=== PATIENT | male | born 1940 | race Caucasian/White ===

== ENCOUNTER 2020-01-12 14:35 | Outpatient (REF) | payer MEDICARE, SELFPAY ==
[2020-01-12 15:34] LABS: INTERNATIONAL NORM RATIO 1.4 (0.9-1.1); Prothrombin Time 16.3 SEC (10.8-13.0)
[2020-01-12 15:56] LABS: Anion Gap 13 (12-20); Blood Urea Nitrogen 17 mg/dL (9-16); Calcium 8.9 mg/dL (8.4-10.2); Carbon Dioxide 26 mmol/L (22-29); Chloride 104 mmol/L (96-108); Estimated Glomerular Filt Rate > 60; Glucose Random 134 mg/dL (60-115); Potassium 3.7 mmol/l (3.3-5.1); Sodium 139 mmol/L (135-145)
== END 2020-01-12 14:36 | disposition home or self-care (01) ==
LOC: HO.LAB 14:35
PROVIDERS: PCP Internal Medicine; Visit Provider Internal Medicine
DX: I25.10 Atherosclerotic heart disease of native coronary artery without angina pectoris (principal)
CPT/HCPCS: 36415; 80048; 85025; 85610

== ENCOUNTER → 2020-01-26 09:26 | Outpatient (BNVA) | payer MEDICARE, SELFPAY | PROVIDERS: PCP Internal Medicine; Visit Provider Psychiatry & Neurology Neurology | DX: Z76.89 Persons encountering health services in other specified circumstances (principal) ==

== ENCOUNTER → 2020-02-02 08:00 | Outpatient (BNVA) | payer MEDICARE, SELFPAY | PROVIDERS: PCP Internal Medicine; Visit Provider Psychiatry & Neurology Neurology | DX: G47.33 Obstructive sleep apnea (adult) (pediatric) (principal) | CPT/HCPCS: 99214 ==

== ENCOUNTER → 2020-02-04 10:53 | Outpatient (BNVA) | payer MEDICARE, SELFPAY | PROVIDERS: PCP Internal Medicine; Referring Provider Internal Medicine; Visit Provider Internal Medicine | DX: I25.10 Atherosclerotic heart disease of native coronary artery without angina pectoris (principal); I48.0 Paroxysmal atrial fibrillation; I10 Essential (primary) hypertension; R60.0 Localized edema; M06.9 Rheumatoid arthritis, unspecified; G47.33 Obstructive sleep apnea (adult) (pediatric); Z86.73 Personal history of transient ischemic attack (TIA), and cerebral infarction without residual deficits; Z79.01 Long term (current) use of anticoagulants; Z79.899 Other long term (current) drug therapy; Z99.89 Dependence on other enabling machines and devices; Z95.5 Presence of coronary angioplasty implant and graft | CPT/HCPCS: 99212 ==

== ENCOUNTER 2020-03-21 10:25 | Outpatient (REF) | payer MEDICARE, SELFPAY ==
[2020-03-21 11:12] LABS: MANUAL DIFF FLAG NO
[2020-03-21 11:28] LABS: Basophils Absolute Auto 0.1 X10*3/uL (0.0-0.2); Basophils Percent Auto 0.8 % (0-2); Eosinophils Absolute Auto 0.1 X10*3/uL (0.0-0.4); Eosinophils Percent Auto 1.5 % (0-4); Hematocrit 36.9 % (42-52); Hemoglobin 11.9 g/dl (14.0-18.0); Imm Gran Abs Auto 0.01 X10*3/uL (0.00-0.03); Imm Gran Pct Auto 0.2 % (0.0-0.4); Lymphocytes Absolute Auto 0.9 X10*3/uL (1.2-4.9); Lymphocytes Percent Auto 14.2 % (20-40); Mean Corpuscular HGB Conc 32.2 g/dl (31.0-36.0); Mean Corpuscular Hemoglobin 31.8 pg (27.0-33.0); Mean Corpuscular Volume 98.7 fL (80-98); Monocytes Absolute Auto 0.5 X10*3/uL (0.1-1.2); Monocytes Percent Auto 8.7 % (2-11); Neutrophils Absolute Auto 4.6 X10*3/uL (2.0-8.3); Neutrophils Percent Auto 74.6 % (45-73); Platelet Count 243 X10*3/uL (160-400); Red Blood Count 3.74 X10*6/uL (4.60-5.80); Red Cell Distribution Width 13.3 % (11.0-16.0); White Blood Count 6.2 X10*3/uL (4.8-10.8)
[2020-03-21 11:58] LABS: Alanine Aminotransferase 15 U/L (0-40); Albumin Level 4.2 g/dL (3.5-5.0); Alkaline Phosphatase 99 U/L (39-117); Anion Gap 14 (12-20); Aspartate Amino Transferase 22 U/L (5-37); Bilirubin Total 0.5 mg/dL (0.0-1.0); Blood Urea Nitrogen 15 mg/dL (9-16); C Reactive Protein 0.22 mg/dL (< or = 0.50); Calcium 8.6 mg/dL (8.4-10.2); Carbon Dioxide 27 mmol/L (22-29); Chloride 106 mmol/L (96-108); Estimated Glomerular Filt Rate > 60; Glucose Random 78 mg/dL (60-115); Potassium 4.5 mmol/l (3.3-5.1); Sodium 142 mmol/L (135-145); Total Protein 6.7 g/dL (6.5-8.0); Uric Acid 4.8 mg/dL (3.4-7.0)
[2020-03-21 12:40] LABS: Erythrocyte Sedimentation Rate 43 MM/HR (0-15)
== END 2020-03-21 10:26 | disposition home or self-care (01) ==
LOC: HO.LAB 10:25
PROVIDERS: PCP Internal Medicine; Visit Provider Student in an Organized Health Care Education/Training Program
DX: L40.50 Arthropathic psoriasis, unspecified (principal); M1A.9XX0 Chronic gout, unspecified, without tophus (tophi); M15.4 Erosive (osteo)arthritis
CPT/HCPCS: 36415; 80053; 84550; 85025; 85652; 86140

== ENCOUNTER → 2020-03-23 10:13 | Outpatient (BNVA) | payer MEDICARE, SELFPAY | PROVIDERS: PCP Internal Medicine; Visit Provider Student in an Organized Health Care Education/Training Program | DX: M15.4 Erosive (osteo)arthritis (principal); L40.50 Arthropathic psoriasis, unspecified; M1A.00X0 Idiopathic chronic gout, unspecified site, without tophus (tophi) | CPT/HCPCS: 99212 ==

== ENCOUNTER 2020-03-30 10:08 | Outpatient (REF) | payer MEDICARE, SELFPAY ==
[2020-03-30 11:34] LABS: Prostate Specific Antigen < 0.05 ng/mL (<0.05-4.0)
== END 2020-03-30 10:09 | disposition home or self-care (01) ==
LOC: HO.LAB 10:08
PROVIDERS: PCP Internal Medicine; Visit Provider Urology
DX: Z12.5 Encounter for screening for malignant neoplasm of prostate (principal)
CPT/HCPCS: 84153

== ENCOUNTER → 2020-04-04 11:02 | Outpatient (BNVA) | payer MEDICARE, SELFPAY | PROVIDERS: PCP Internal Medicine; Visit Provider Urology | DX: Z13.89 Encounter for screening for other disorder (principal) | CPT/HCPCS: Q3014 ==

== ENCOUNTER → 2020-06-13 10:45 | Outpatient (BNVA) | payer MEDICARE, SELFPAY | PROVIDERS: Visit Provider Internal Medicine | DX: I25.10 Atherosclerotic heart disease of native coronary artery without angina pectoris (principal); I48.0 Paroxysmal atrial fibrillation; I63.40 Cerebral infarction due to embolism of unspecified cerebral artery; I10 Essential (primary) hypertension; R60.0 Localized edema; M06.9 Rheumatoid arthritis, unspecified; G47.33 Obstructive sleep apnea (adult) (pediatric); Z99.89 Dependence on other enabling machines and devices; Z95.5 Presence of coronary angioplasty implant and graft | CPT/HCPCS: 99212 ==

== ENCOUNTER 2020-06-17 09:36 | Outpatient (REF) | payer MEDICARE, SELFPAY ==
[2020-06-17 10:52] LABS: MANUAL DIFF FLAG NO
[2020-06-17 10:59] LABS: Basophils Absolute Auto 0.1 X10*3/uL (0.0-0.2); Eosinophils Absolute Auto 0.1 X10*3/uL (0.0-0.4); Hematocrit 36.8 % (42-52); Hemoglobin 12.3 g/dl (14.0-18.0); Imm Gran Abs Auto 0.03 X10*3/uL (0.00-0.03); Imm Gran Pct Auto 0.4 % (0.0-0.4); Lymphocytes Absolute Auto 1.1 X10*3/uL (1.2-4.9); Lymphocytes Percent Auto 14.9 % (20-40); Mean Corpuscular HGB Conc 33.4 g/dl (31.0-36.0); Mean Corpuscular Hemoglobin 32.4 pg (27.0-33.0); Mean Corpuscular Volume 96.8 fL (80-98); Mean Platelet Volume 10.9 fL (9.4-12.4); Monocytes Absolute Auto 0.4 X10*3/uL (0.1-1.2); Monocytes Percent Auto 5.9 % (2-11); Neutrophils Absolute Auto 5.4 X10*3/uL (2.0-8.3); Neutrophils Percent Auto 76.8 % (45-73); Platelet Count 244 X10*3/uL (160-400); Red Cell Distribution Width 15.3 % (11.0-16.0); White Blood Count 7.1 X10*3/uL (4.8-10.8)
[2020-06-17 11:19] LABS: Alanine Aminotransferase 18 U/L (0-40); Albumin Level 4.3 g/dL (3.5-5.0); Alkaline Phosphatase 91 U/L (39-117); Anion Gap 13 (12-20); Aspartate Amino Transferase 19 U/L (5-37); Bilirubin Total 0.7 mg/dL (0.0-1.0); Blood Urea Nitrogen 23 mg/dL (9-16); C Reactive Protein 0.05 mg/dL (< or = 0.50); Calcium 9.2 mg/dL (8.4-10.2); Carbon Dioxide 27 mmol/L (22-29); Chloride 105 mmol/L (96-108); Estimated Glomerular Filt Rate > 60; Glucose Random 83 mg/dL (60-115); Potassium 4.2 mmol/L (3.3-5.1); Sodium 141 mmol/L (135-145); Total Protein 6.8 g/dL (6.5-8.0)
[2020-06-17 11:42] LABS: Prostate Specific Antigen 0.05 ng/mL (<0.05-4.0)
[2020-06-17 12:04] LABS: Erythrocyte Sedimentation Rate 14 MM/HR (0-15)
== END 2020-06-17 09:37 | disposition home or self-care (01) ==
LOC: HO.LAB 09:36
PROVIDERS: Absent Provider Urology; PCP Internal Medicine; Visit Provider Student in an Organized Health Care Education/Training Program
DX: L40.50 Arthropathic psoriasis, unspecified (principal); C61 Malignant neoplasm of prostate; M1A.9XX0 Chronic gout, unspecified, without tophus (tophi); M15.4 Erosive (osteo)arthritis
CPT/HCPCS: 36415; 80053; 84153; 85025; 85652; 86140

== ENCOUNTER → 2020-06-21 09:59 | Outpatient (BNVA) | payer MEDICARE, SELFPAY | PROVIDERS: Visit Provider Student in an Organized Health Care Education/Training Program | DX: L40.50 Arthropathic psoriasis, unspecified (principal); M1A.00X0 Idiopathic chronic gout, unspecified site, without tophus (tophi); M15.4 Erosive (osteo)arthritis; Z79.899 Other long term (current) drug therapy | CPT/HCPCS: 99212 ==

== ENCOUNTER → 2020-06-23 09:42 | Outpatient (BNVA) | payer MEDICARE, SELFPAY | PROVIDERS: PCP Internal Medicine; Visit Provider Urology | DX: Z13.89 Encounter for screening for other disorder (principal) | CPT/HCPCS: 99212 ==

== ENCOUNTER → 2020-06-28 09:50 | Outpatient (BNVA) | payer MEDICARE, SELFPAY | PROVIDERS: PCP Internal Medicine; Visit Provider Psychiatry & Neurology Neurology | DX: Z13.89 Encounter for screening for other disorder (principal) | CPT/HCPCS: Q3014 ==

== ENCOUNTER 2020-08-11 08:00 | Outpatient (RCR) | payer MEDICARE, SELFPAY ==
[2020-07-06 08:13] VITALS: BP 143/65; PULSE 63
--- NOTE | 2020-07-06 15:22 | MHC.PT.EP ---
[facility] [place] Office [place] Office [place] Office [address] Cerna [address] [phone] F: [phone] F: [phone] F: [phone] F: [phone] Physical Therapy Plan of Care Date of Evaluation: 07/06/20 Date of Surgery: N/A Diagnosis: SONY KNEE PAIN Assessment: Pt is a pleasant 80 yo male with increasing bilateral knee pain. Impairments include decreased knee ROM bilaterally without the ability to fully extend either knee, decreased strength, altered gait pattern, decreased balance and increased pain. Functional limitations include decreased ability to perform transfers and gait, decreased ability to perform homemaking and self care tasks, decreased participation in community activity and mobility and disrupted sleep. Frequency and Duration: The patient will be seen 2 x week for 6 weeks Short Term Goals: initiate HEP and educ in self management of symptoms [facility] Goals: IN 6 WEEKS: TO DEMONSTRATE FULL KNEE ROM, EQUAL SONY TO DEMONSTRATE FULL LE STRENGTH, EQUAL SONY TO ASCEND AND DESCEND STAIRS WITHOUT PAIN GREATER THAN 2/10 TO AMBULATE AD SAYRA ON LEVEL AND UNEVEN SURFACES FOR FITNESS WITHOUT PAIN GREATER THAN 2/10 WITH STANDARD CANE Treatment Plan: Modalities to reduce pain, spasms and effusion. Manual therapy to restore motion and function. Therapeutic exercise to improve strength and flexibility. Neuromuscular re-education for posture and balance. Therapeutic activities to return to functional activities of daily living. Electronically signed by: TRENT SANCHEZ PT, DPT Please sign and return to therapist. Thank you for your referral.
--- NOTE | 2020-09-08 15:46 | MHC.PT.DC ---
[facility] [place] Office [place] Office [place] Office [address] Kathy Cerna [address] [phone] F: [phone] F: [phone] F: [phone] F: [phone] Physical Therapy Discharge Report Diagnosis: SONY KNEE PAIN Date of Surgery: N/A Date of Evaluation: 07/06/20 Date of Discharge: 08/12/20 Treatments to Date: 8 Cancellations to Date: 0 No Shows to Date: 0 Discharge Status: Improved Function Independent with HEP Discharge Summary: Derrick demonstrated improvement in knee pain with physical therapy but due to on going issues with his low back he was limited in progressing. He is currently independent with a modified home program to self manage his knee symptoms and promote strengthening. He did speak to us about possibly pursuing pain management or accupuncture for his back symptoms. He is discharged from our services at this time. Electronically signed by: Farrah Jonas PT, DPT Please sign and return to therapist. Thank you for your referral.
== END 2020-09-08 15:48 | disposition other institution (70) ==
LOC: HO.PT 08:00
PROVIDERS: PCP Internal Medicine; Visit Provider Student in an Organized Health Care Education/Training Program
DX: M17.0 Bilateral primary osteoarthritis of knee (principal)
CPT/HCPCS: 97110; 97162

== ENCOUNTER → 2020-09-06 09:34 | Outpatient (BNVA) | payer MEDICARE, SELFPAY | PROVIDERS: PCP Internal Medicine; Visit Provider Psychiatry & Neurology Neurology | CPT/HCPCS: Q3014 ==

== ENCOUNTER 2020-09-16 10:33 | Outpatient (REF) | payer MEDICARE, SELFPAY ==
[2020-09-16 12:31] LABS: Prostate Specific Antigen < 0.05 ng/mL (<0.05-4.0)
[2020-09-20 10:26] LABS: Testosterone, Total 11 ng/dL (250-1100)
== END 2020-09-16 10:34 | disposition home or self-care (01) ==
LOC: HO.LAB 10:33
PROVIDERS: Absent Provider Urology; PCP Internal Medicine; Visit Provider Student in an Organized Health Care Education/Training Program
DX: Z12.5 Encounter for screening for malignant neoplasm of prostate (principal); N13.8 Other obstructive and reflux uropathy; N40.1 Benign prostatic hyperplasia with lower urinary tract symptoms
CPT/HCPCS: 36415; 84153; 84403

== ENCOUNTER 2020-09-21 09:35 | Outpatient (REF) | payer MEDICARE, SELFPAY ==
[2020-09-21 12:50] LABS: MANUAL DIFF FLAG NO
[2020-09-21 12:58] LABS: Basophils Percent Auto 0.6 % (0-2); Eosinophils Absolute Auto 0.1 X10*3/uL (0.0-0.4); Eosinophils Percent Auto 1.4 % (0-4); Hematocrit 36.5 % (42-52); Hemoglobin 12.2 g/dl (14.0-18.0); Imm Gran Abs Auto 0.01 X10*3/uL (0.00-0.03); Imm Gran Pct Auto 0.2 % (0.0-0.4); Lymphocytes Absolute Auto 0.8 X10*3/uL (1.2-4.9); Lymphocytes Percent Auto 14.9 % (20-40); Mean Corpuscular HGB Conc 33.4 g/dl (31.0-36.0); Mean Corpuscular Hemoglobin 32.7 pg (27.0-33.0); Mean Corpuscular Volume 97.9 fL (80-98); Mean Platelet Volume 10.3 fL (9.4-12.4); Monocytes Absolute Auto 0.4 X10*3/uL (0.1-1.2); Monocytes Percent Auto 7.5 % (2-11); Neutrophils Absolute Auto 3.8 X10*3/uL (2.0-8.3); Neutrophils Percent Auto 75.4 % (45-73); Platelet Count 220 X10*3/uL (160-400); Red Blood Count 3.73 X10*6/uL (4.60-5.80); Red Cell Distribution Width 13.2 % (11.0-16.0); White Blood Count 5.1 X10*3/uL (4.8-10.8)
[2020-09-21 13:20] LABS: Alanine Aminotransferase 16 U/L (0-40); Albumin Level 3.8 g/dL (3.5-5.0); Alkaline Phosphatase 84 U/L (39-117); Anion Gap 12 (12-20); Aspartate Amino Transferase 20 U/L (5-37); Bilirubin Total 0.9 mg/dL (0.0-1.0); Blood Urea Nitrogen 18 mg/dL (9-16); Calcium 8.6 mg/dL (8.4-10.2); Carbon Dioxide 24 mmol/L (22-29); Chloride 107 mmol/L (96-108); Estimated Glomerular Filt Rate > 60; Glucose Random 88 mg/dL (60-115); Sodium 139 mmol/L (135-145); Total Protein 5.9 g/dL (6.5-8.0)
[2020-09-21 13:41] LABS: Erythrocyte Sedimentation Rate 20 MM/HR (0-15)
== END 2020-09-21 09:36 | disposition home or self-care (01) ==
LOC: HO.LAB 09:35
PROVIDERS: PCP Internal Medicine; Visit Provider Student in an Organized Health Care Education/Training Program
DX: L40.50 Arthropathic psoriasis, unspecified (principal); M15.4 Erosive (osteo)arthritis; M17.0 Bilateral primary osteoarthritis of knee; M1A.00X0 Idiopathic chronic gout, unspecified site, without tophus (tophi); Z79.899 Other long term (current) drug therapy
CPT/HCPCS: 36415; 80053; 85025; 85652; 86140; 99212

== ENCOUNTER 2020-09-21 10:45 | Emergency (ER) | payer MEDICARE, SELFPAY ==
--- NOTE | ~2020-09-21 | CT_ITS ---
EXAMINATION: CT BRAIN AND CT CERVICAL SPINE WITHOUT CONTRAST. CLINICAL INFORMATION: Fall. COMPARISON: None TECHNIQUE: 5 mm thin axial and reformatted 2 mm thin sagittal and coronal images of brain were obtained. Subsequently axial 3 mm thin and reformatted 2 mm thin sagittal and coronal images of cervical spine were obtained. DLP [id number] FINDINGS: BRAIN: There is no acute intra-axial, extra-axial bleed, masses or midline shift. There is no acute infarction in evolution. The caruso to white matter differentiation is maintained normal. The lateral ventricles are symmetrical in size but moderately enlarged. There is mild prominence of cortical sulci. There is mild periventricular hypodensity in both cerebral hemispheres without mass effect. There is no cerebral edema. Bone windows reveal no calvarial abnormality. Bilateral paranasal sinuses and mastoid air cells are well-aerated. There is no scalp soft tissue abnormality seen. CERVICAL SPINE: There is mild straightening of cervical lordosis. The vertebral heights and alignment is normal. There is loss of C4-C6 and C6-C7 disc heights with moderate ventral and posterior spondylosis. The craniovertebral junction and the C1-C2 alignment is normal. No visible acute fracture or dislocation. There is mild rotatory subluxation C1-C2 alignment. There is moderate left C2-C3, C3-C4 and mild bilateral C4-C5 facet joint arthropathy. No lytic or sclerotic process seen. The prevertebral and paravertebral soft tissues are normal. The thyroid lobes are symmetric and normal. Visualized bilateral submandibular and parotid glands are symmetrical and normal. The airway is widely patent. CT/CT cervical spine wo con IMPRESSION: No acute intracranial process seen. Age-related cerebral volume loss. Mild straightening of cervical lordosis without acute fracture or dislocation. There is a rotatory subluxation at C1-C2 disc level likely secondary to spasm There are degenerative disc changes with spondylosis at C5-C6 and C6-C7 disc levels.
--- NOTE | ~2020-09-21 | XR_ITS ---
EXAMINATION: XR KNEE, RIGHT CLINICAL INFORMATION: Fall. COMPARISON: None TECHNIQUE: Four views of the right knee. FINDINGS: There is mild reduction in the medial and patellofemoral compartment joint space with periarticular spurring. No visible acute fracture, dislocation or subluxation. There is no suprapatellar joint effusion seen. XR/XR knee RT 4V IMPRESSION: Degenerative arthritic changes medial and patellar femoral compartment with periarticular spurring. No visible acute fracture, dislocation or subluxation seen
[2020-09-21 10:48] VITALS: BP 135/73; PULSE 67; RESP 18; TEMP 36.6; O2SAT 98; BMI 36.6
--- NOTE | 2020-09-21 11:00 | ECG_ITS ---
Test Reason : FALL Blood Pressure : / mmHG Vent. Rate : 061 BPM Atrial Rate : 061 BPM P-R Int : 178 ms QRS Dur : 096 ms QT Int : 416 ms P-R-T Axes : 049 000 047 degrees QTc Int : 418 ms Sinus rhythm with occasional Premature ventricular complexes Increased R/S ratio in V1, consider early transition or posterior infarct Abnormal ECG When compared with ECG of 15-APR-2019 14:08, Premature ventricular complexes are now Present Referred By: Mlaka Marion Electronically Signed By:DONN ARDON
--- NOTE | 2020-09-21 11:01 | ED_ITS ---
HPI - Fall General Chief Complaint: Fall Stated Complaint: fall Time Seen by Provider: 09/21/20 10:59 Source: patient Mode of arrival: ambulatory (from our lab department) Limitations: no limitations History of Present Illness MD complaint: fall Onset (ago): minute(s) Fall from: standing Fall witnessed: no Place fall occurred: other (lab registration) Loss of consciousness: none Prolonged down time: no Symptoms prior to fall: other (had just stood up and felt off) Location of injury: head Location of injury - extremities: right: elbow Severity: mild Quality: dull Associated symptoms (after fall): other (skin tear) Related Data Home Medications Medication Instructions Recorded Confirmed folic acid 1 mg tablet 1 mg PO DAILY 02/04/20 06/28/20 furosemide 40 mg tablet 40 mg PO DAILY tab 02/04/20 06/28/20 metoprolol tartrate 50 mg tablet 25 mg PO BID tab 02/04/20 06/28/20 omeprazole 20 mg capsule,delayed 20 mg PO DAILY 02/04/20 06/28/20 release oxycodone-acetaminophen 10 mg-325 1 tab PO . BID PRN tab 02/04/20 06/28/20 mg tablet Previous Rx's Medication Instructions Recorded atorvastatin 40 mg tablet 40 mg PO DAILY #90 tab 02/29/20 bicalutamide 50 mg tablet 50 mg PO DAILY #90 tab 04/13/20 acetaminophen 650 mg 650 mg PO Q12H PRN #60 tab 05/10/20 tablet,extended release allopurinol 100 mg tablet 100 mg PO DAILY #90 tab 06/02/20 potassium chloride 20 mEq 40 meq PO BID #180 tab 07/01/20 tablet,extended release apixaban 5 mg tablet 5 mg PO BID 90 Days #180 tab 07/21/20 amlodipine 5 mg tablet 5 mg PO DAILY #90 tab 08/01/20 nystatin 100,000 unit/gram topical 1 appl TOPICAL BID #120 g 08/04/20 powder clopidogrel 75 mg tablet 75 mg PO DAILY #90 tab 08/29/20 methotrexate sodium 2.5 mg tablet 20 mg PO QWEEK #32 tab 09/21/20 Allergies Allergy/AdvReac Type Severity Reaction Status Date / Time penicillin V Allergy Intermediate hives Verified 09/21/20 09:39 Review of Systems Review of Systems: Constitutional : No Fever, No Chills ENT/Mouth : No Ear Pain, No Hoarseness, No sore throat Eyes: No Eye Pain, No Swelling, No Redness, No Foreign Body Cardiovascular : No Chest Pain, No SOB Respiratory : No Cough, No Dyspnea Gastrointestinal : No Nausea, No Vomiting, No Diarrhea, No abdominal Pain Genitourinary : No Dysuria, No Hematuria Musculoskeletal : no joint pain, No Myalgias, No Joint Swelling Skin : pos Skin lacerations, No rash Neuro : No Weakness, No Numbness, No Loss of Consciousness, No Dizziness, No Headache Psych : No Anxiety/Panic, No Depression Heme/Lymph: no easy bruising, no Lymphadenopathy Endocrine : No Polyuria, No Polydipsia All other systems reviewed and are negative [facility] Past Medical History Attestation statement: The following information was validated with the patient. Medical History Atherosclerotic cardiovascular disease Embolic stroke Erosive osteoarthritis Essential hypertension Gout JODI on CPAP PAF (paroxysmal atrial fibrillation) Prostate cancer Psoriatic arthritis Rheumatoid arthritis, unspecified Surgical History Hx of cardiac cath Hx of cholecystectomy Hx of colonoscopy Hx of eye surgery Stented coronary artery Family History Family History Father No problems noted. Mother No problems noted. Social History Social History Alcohol intake: never Patient Tobacco Use Status: Never used Tobacco Advance Directives: No Advance Directives Information Provided: No Physical Exam Vital Signs: Vital Signs: Last Vital Signs Temp 98.1 F 09/21/20 11:20 Pulse 77 09/21/20 11:25 Resp 16 09/21/20 11:20 BP 112/65 09/21/20 11:25 Pulse Ox 97 09/21/20 11:20 Body Mass Index 36.6 Appearance: Alert. Oriented X3. No acute distress. Eyes: Pupils equal, round and reactive to light. ENT: Pharynx normal. Neck: Normal inspection. Neck supple. CVS: Normal heart rate and rhythm. Pulses normal. Respiratory: No respiratory distress. Breath sounds normal. Abdomen: Soft and nontender. Skin: Skin warm and dry. Normal skin color. Normal skin turgor. Extremities: No lower extremity edema. No calf ttp R elbow superficial skin tear noted, full ROM Neuro: Oriented X 3. No motor deficit. No sensory deficit. Course Course Course Narrative: feels fine wants to go home, stable for DC at this time offered repeat cardiac testing but they decline, requesting R knee xray as he notes after the fall with standing it is more painful - negative for acute fracture offered splint Procedures Orthopedic Splinting/Casting Injury #1: Side: right Lower Extremity Injury Location: knee Lower Extremity Immobilizer: knee immobilizer MDM - Fall MDM Narrative Medical decision making narrative: 80 yo male with hx of gout, HTN, embolix stroke on xarelto, CAD with stents, PAF here with fall at lab registration no CP/SOB dizziness at this time did hit head, hx of falls in the past, had just stood up and went to check in with registration, at this time labs, CT head/neck for trauma and AC therapy, EKG, ortho VS, skin tear R elbow (full ROM doubt fracture) will need steri strips Lab Data Result diagrams: 09/21/20 12:11 09/21/20 12:11 Labs: Lab Results 09/21/20 09/21/20 09/21/20 Range/Units 12:11 12:11 12:11 WBC 4.9 (4.8-10.8) X10*3/uL RBC 3.88 L (4.60-5.80) X10*6/uL Hgb 12.8 L (14.0-18.0) g/dl Hct 37.6 L (42-52) % MCV 96.9 (80-98) fL MCH 33.0 (27.0-33.0) pg MCHC 34.0 (31.0-36.0) g/dl RDW 13.3 (11.0-16.0) % Plt Count 220 (160-400) X10*3/uL MPV 10.0 (9.4-12.4) fL Immature Gran % (Auto) 0.2 (0.0-0.4) % Neut % (Auto) 74.6 H (45-73) % Lymph % (Auto) 15.9 L (20-40) % [place] % (Auto) 7.1 (2-11) % Eos % (Auto) 1.6 (0-4) % Baso % (Auto) 0.6 (0-2) % Lymph # (Auto) 0.8 L (1.2-4.9) X10*3/uL [place] # (Auto) 0.4 (0.1-1.2) X10*3/uL Eos # (Auto) 0.1 (0.0-0.4) X10*3/uL Baso # (Auto) 0.0 (0.0-0.2) X10*3/uL Abs Immat Gran (auto) 0.01 (0.00-0.03) X10*3/uL Absolute Neuts (auto) 3.7 (2.0-8.3) X10*3/uL Absolute Nucleated RBC 0.000 (0.0-0.012) X10*3/uL Nucleated RBC % (auto) 0.0 (0.0-0.2) /100WBC PT 13.1 H (10.8-13.0) SEC INR 1.1 (0.9-1.1) APTT 37.6 (24.1-38.0) SEC Sodium 140 (135-145) mmol/L Potassium 4.1 (3.3-5.1) mmol/L Chloride 105 (96-108) mmol/L Carbon Dioxide 26 (22-29) mmol/L Anion Gap 13 (12-20) BUN 17 H (9-16) mg/dL Creatinine 0.98 (0.5-1.4) mg/dL Estim Creat Clear Calc 74.0 Estimated GFR > 60 Random Glucose 89 (60-115) mg/dL Calcium 9.1 (8.4-10.2) mg/dL Magnesium (1.6-2.6) mg/dL Troponin I High Sens (<3.5-35.0) ng/L 09/21/20 09/21/20 Range/Units 12:11 12:11 WBC (4.8-10.8) X10*3/uL RBC (4.60-5.80) X10*6/uL Hgb (14.0-18.0) g/dl Hct (42-52) % MCV (80-98) fL MCH (27.0-33.0) pg MCHC (31.0-36.0) g/dl RDW (11.0-16.0) % Plt Count (160-400) X10*3/uL MPV (9.4-12.4) fL Immature Gran % (Auto) (0.0-0.4) % Neut % (Auto) (45-73) % Lymph % (Auto) (20-40) % [place] % (Auto) (2-11) % Eos % (Auto) (0-4) % Baso % (Auto) (0-2) % Lymph # (Auto) (1.2-4.9) X10*3/uL [place] # (Auto) (0.1-1.2) X10*3/uL Eos # (Auto) (0.0-0.4) X10*3/uL Baso # (Auto) (0.0-0.2) X10*3/uL Abs Immat Gran (auto) (0.00-0.03) X10*3/uL Absolute Neuts (auto) (2.0-8.3) X10*3/uL Absolute Nucleated RBC (0.0-0.012) X10*3/uL Nucleated RBC % (auto) (0.0-0.2) /100WBC PT (10.8-13.0) SEC INR (0.9-1.1) APTT (24.1-38.0) SEC Sodium (135-145) mmol/L Potassium (3.3-5.1) mmol/L Chloride (96-108) mmol/L Carbon Dioxide (22-29) mmol/L Anion Gap (12-20) BUN (9-16) mg/dL Creatinine (0.5-1.4) mg/dL Estim Creat Clear Calc Estimated GFR Random Glucose (60-115) mg/dL Calcium (8.4-10.2) mg/dL Magnesium 2.1 (1.6-2.6) mg/dL Troponin I High Sens 12.1 (<3.5-35.0) ng/L ECG Data Attestation: I personally reviewed and interpreted this ECG as follows: ECG interpretation date: 09/21/20 ECG interpretation time: 11:32 Interpretation: Rate: 61 Rhythm: NSR with PVCs [place]: left Normal P waves. Normal DIA. Normal QRS complex. ST T wave : normal no YADIRA qTC: normal prior studies: unchanged from Apr 2019 The study has been interpreted contemporaneously by me. . Discharge Plan Discharge Clinical Impression: Fall Qualifiers: Encounter type: initial encounter Qualified Code(s): W19.XXXA - Unspecified fall, initial encounter Avulsion of skin of elbow Qualifiers: Encounter type: initial encounter Laterality: right Qualified Code(s): S51.001A - Unspecified open wound of right elbow, initial encounter Patient Disposition: Home, Self-Care Instructions: Skin Avulsion (ED), Fall Prevention (ED) Additional Instructions: return to ED for any worsening symptoms or concerns the steri strips will come off on their own in 5 to 7 days, okay to shower with them do not soak Prescriptions: No Action atorvastatin 40 mg tablet 40 mg PO DAILY Qty: 90 RF: 0 bicalutamide 50 mg tablet 50 mg PO DAILY Qty: 90 RF: 2 acetaminophen 650 mg tablet extended release 650 mg PO Q12H PRN (Reason: pain) Qty: 60 RF: 2 allopurinol 100 mg tablet 100 mg PO DAILY Qty: 90 RF: 1 potassium chloride 20 mEq tablet extended release 40 meq PO BID Qty: 180 RF: 4 apixaban 5 mg tablet 5 mg PO BID 90 Days Qty: 180 RF: 1 amlodipine 5 mg tablet 5 mg PO DAILY Qty: 90 RF: 3 nystatin [Nystop] 100,000 unit/gram powder 1 appl topical BID Qty: 120 RF: 0 clopidogrel 75 mg tablet 75 mg PO DAILY Qty: 90 RF: 1 furosemide 40 mg tablet 40 mg PO DAILY RF: 0 metoprolol tartrate 50 mg tablet 25 mg PO BID RF: 0 folic acid 1 mg tablet 1 mg PO DAILY RF: 0 omeprazole 20 mg capsule,delayed release(DR/EC) 20 mg PO DAILY RF: 0 oxycodone-acetaminophen 10-325 mg tablet 1 tab PO . BID PRNRF: 0 methotrexate sodium 2.5 mg tablet 20 mg PO QWEEK Qty: 32 RF: 2 Interventions: ED Discharge Assessment Last Done: 09/21/20 14:27 Discharge Date/Time: 09/21/20 14:28
[2020-09-21 11:20] VITALS: BP 122/59; PULSE 62; RESP 16; TEMP 36.7; O2SAT 97
[2020-09-21 11:23] VITALS: BP 113/60; PULSE 71
[2020-09-21 11:25] VITALS: BP 112/65; PULSE 77
[2020-09-21 12:16] LABS: MANUAL DIFF FLAG NO
[2020-09-21 12:17] LABS: Basophils Percent Auto 0.6 % (0-2); Eosinophils Absolute Auto 0.1 X10*3/uL (0.0-0.4); Eosinophils Percent Auto 1.6 % (0-4); Hematocrit 37.6 % (42-52); Hemoglobin 12.8 g/dl (14.0-18.0); Imm Gran Abs Auto 0.01 X10*3/uL (0.00-0.03); Imm Gran Pct Auto 0.2 % (0.0-0.4); Lymphocytes Absolute Auto 0.8 X10*3/uL (1.2-4.9); Lymphocytes Percent Auto 15.9 % (20-40); Mean Corpuscular Volume 96.9 fL (80-98); Monocytes Absolute Auto 0.4 X10*3/uL (0.1-1.2); Monocytes Percent Auto 7.1 % (2-11); Neutrophils Absolute Auto 3.7 X10*3/uL (2.0-8.3); Neutrophils Percent Auto 74.6 % (45-73); Platelet Count 220 X10*3/uL (160-400); Red Blood Count 3.88 X10*6/uL (4.60-5.80); Red Cell Distribution Width 13.3 % (11.0-16.0); White Blood Count 4.9 X10*3/uL (4.8-10.8)
[2020-09-21 12:25] LABS: INTERNATIONAL NORM RATIO 1.1 (0.9-1.1); Prothrombin Time 13.1 SEC (10.8-13.0)
[2020-09-21 12:28] LABS: Partial Thromboplastin Time 37.6 SEC (24.1-38.0)
[2020-09-21 12:52] LABS: Anion Gap 13 (12-20); Blood Urea Nitrogen 17 mg/dL (9-16); Calcium 9.1 mg/dL (8.4-10.2); Carbon Dioxide 26 mmol/L (22-29); Chloride 105 mmol/L (96-108); Estimated Glomerular Filt Rate > 60; Glucose Random 89 mg/dL (60-115); Potassium 4.1 mmol/L (3.3-5.1); Sodium 140 mmol/L (135-145)
[2020-09-21 12:53] LABS: Magnesium 2.1 mg/dL (1.6-2.6)
[2020-09-21 12:57] LABS: Troponin-I High Sensitivity 12.1 ng/L (<3.5-35.0)
== END 2020-09-21 14:28 | disposition home or self-care (01) ==
PROVIDERS: Emergency Provider Emergency Medicine; PCP Internal Medicine
DX: S41.101A Unspecified open wound of right upper arm, initial encounter (principal); M25.561 Pain in right knee; I10 Essential (primary) hypertension; I25.10 Atherosclerotic heart disease of native coronary artery without angina pectoris; I48.0 Paroxysmal atrial fibrillation; Z86.73 Personal history of transient ischemic attack (TIA), and cerebral infarction without residual deficits; Z79.01 Long term (current) use of anticoagulants; L40.50 Arthropathic psoriasis, unspecified; M17.0 Bilateral primary osteoarthritis of knee; M1A.00X0 Idiopathic chronic gout, unspecified site, without tophus (tophi); M15.4 Erosive (osteo)arthritis; Z79.899 Other long term (current) drug therapy; W19.XXXA Unspecified fall, initial encounter; Y93.9 Activity, unspecified; Y92.238 Other place in hospital as the place of occurrence of the external cause; Y99.9 Unspecified external cause status
CPT/HCPCS: 36415; 70450; 72125; 73564; 80048; 80053; 83735; 84484; 85025; 85610; 85652; 85730; 86140; 93005; 99212; 99283; 99284

== ENCOUNTER → 2020-10-06 10:29 | Outpatient (BNVA) | payer MEDICARE, SELFPAY | PROVIDERS: PCP Internal Medicine; Visit Provider Urology | DX: C61 Malignant neoplasm of prostate (principal); Z79.818 Long term (current) use of other agents affecting estrogen receptors and estrogen levels | CPT/HCPCS: 99212 ==

== ENCOUNTER → 2020-11-24 13:18 | Outpatient (BNVA) | payer MEDICARE, SELFPAY | PROVIDERS: PCP Internal Medicine; Visit Provider Nurse Practitioner Family | DX: L40.50 Arthropathic psoriasis, unspecified (principal); M15.4 Erosive (osteo)arthritis; M17.0 Bilateral primary osteoarthritis of knee; M1A.00X0 Idiopathic chronic gout, unspecified site, without tophus (tophi) | CPT/HCPCS: 99212 ==

== ENCOUNTER → 2020-12-26 13:28 | Outpatient (BNVA) | payer MEDICARE, SELFPAY | PROVIDERS: PCP Internal Medicine; Referring Provider Internal Medicine; Visit Provider Internal Medicine | DX: I25.10 Atherosclerotic heart disease of native coronary artery without angina pectoris (principal); I48.0 Paroxysmal atrial fibrillation; I63.40 Cerebral infarction due to embolism of unspecified cerebral artery; I10 Essential (primary) hypertension; R60.0 Localized edema; M06.9 Rheumatoid arthritis, unspecified; G47.33 Obstructive sleep apnea (adult) (pediatric); Z99.89 Dependence on other enabling machines and devices | CPT/HCPCS: 99212 ==

== ENCOUNTER 2021-01-27 08:32 | Outpatient (REF) | payer MEDICARE, SELFPAY ==
--- NOTE | ~2021-01-27 | MM_ITS ---
EXAMINATION: BONE DENSITOMETRY CLINICAL INDICATION: Other specified disorders of bone density and structure. COMPARISON: This is the patient's baseline examination. TECHNIQUE: Using a [employer] DXA System (software version: 13.1) manufactured by [employer], dual-energy x-ray absorptiometry was performed of the lumbar spine and left hip. The images are of good technical quality. Summary results are attached. FINDINGS: AP SPINE L1-L4: There are multilevel degenerative changes lumbar spine which may cause overestimation the lumbar bone mineral density. BMD 1.920 g/cm2, Z-score 5.8, T-score 5.8, normal. LEFT FEMUR, NECK: BMD 0.938 g/cm2, Z-score 0.1, T-score -1.0, normal. LEFT FEMUR, TOTAL: BMD 0.987 g/cm2, Z-score 0.0, T-score -0.8, normal. IDENTIFIED RISK FACTORS: Recurrent falls, height loss, history of fracture (adult). HISTORY OF FRACTURE: Humerus. MEDICATIONS: Calcium supplements or multivitamin, vitamin D. MM/XR DEXA axial skeleton IMPRESSION: 1. DIAGNOSIS: Normal bone density based on the lowest T-score value of -1.0 in the femoral neck applying World Health Organization criteria. 2. 10-YEAR FRACTURE RISK PREDICTION, FRAX: According to the guidelines, FRAX calculation should only be performed on patients in the osteopenia bone density category. Therefore, FRAX was not performed on this patient. 3. Treatment Recommendations: NOF guidelines recommend consideration for treatment in postmenopausal women and men age 50 and older presenting with the following: -A hip or vertebral (clinical or morphometric) fracture. -T-score less than or equal to -2.5 at the femoral neck or spine after appropriate evaluation to exclude secondary causes. -Low bone mass at the hip or spine and a 10-year fracture probability by FRAX of greater than or equal to 3% for hip fracture or greater than or equal to 20% for major osteoporotic fracture based on the [place] adapted WHO algorithm. 4. Other Recommendations: All treatment decisions require clinical judgment and consideration of individual patient factors, including patient preferences, comorbidities, previous drug use, risk factors not captured in the FRAX model (e.g. frailty, falls, vitamin D deficiency, increased bone turnover, interval significant decline in bone density) and possible under or overestimation of fracture risk by FRAX. FUTURE SCAN RECOMMENDATION: People with diagnosed cases of osteoporosis or at high risk for fracture should have regular bone mineral density tests. For patients eligible for Medicare, routine testing is allowed once every 2 years. The testing frequency can be increased to one year for patients who have rapidly progressing disease, those who are receiving or discontinuing medical therapy to restore bone mass, or have additional risk factors.
== END 2021-01-27 08:33 | disposition home or self-care (01) ==
LOC: HO.MAMMO 08:32
PROVIDERS: PCP Internal Medicine; Visit Provider Urology
DX: Z13.820 Encounter for screening for osteoporosis (principal); M85.88 Other specified disorders of bone density and structure, other site; C61 Malignant neoplasm of prostate; Z87.81 Personal history of (healed) traumatic fracture; Z79.899 Other long term (current) drug therapy
CPT/HCPCS: 77080

== ENCOUNTER 2021-02-02 10:48 | Outpatient (REF) | payer MEDICARE, SELFPAY ==
[2021-02-02 15:16] LABS: Prostate Specific Antigen < 0.05 ng/mL (<0.05-4.0)
[2021-02-06 11:41] LABS: Testosterone, Total 27 ng/dL (250-1100)
== END 2021-02-02 10:49 | disposition home or self-care (01) ==
LOC: HO.10HDL 10:48
PROVIDERS: Visit Provider Urology
DX: Z12.5 Encounter for screening for malignant neoplasm of prostate (principal); C61 Malignant neoplasm of prostate; N13.8 Other obstructive and reflux uropathy; N40.1 Benign prostatic hyperplasia with lower urinary tract symptoms
CPT/HCPCS: 36415; 84153; 84403

== ENCOUNTER → 2021-02-07 09:08 | Outpatient (BNVA) | payer MEDICARE, SELFPAY | PROVIDERS: PCP Internal Medicine; Referring Provider Internal Medicine; Visit Provider Psychiatry & Neurology Neurology | DX: G47.33 Obstructive sleep apnea (adult) (pediatric) (principal) | CPT/HCPCS: Q3014 ==

== ENCOUNTER → 2021-02-10 09:32 | Outpatient (BNVA) | payer MEDICARE, SELFPAY | PROVIDERS: PCP Internal Medicine; Visit Provider Urology | DX: C61 Malignant neoplasm of prostate (principal) | CPT/HCPCS: Q3014 ==

== ENCOUNTER 2021-02-23 09:59 | Outpatient (REF) | payer MEDICARE, SELFPAY ==
--- NOTE | ~2021-02-23 | XR_ITS ---
EXAMINATION: XR HAND, RIGHT XR HAND, LEFT CLINICAL INFORMATION: Erosive osteoarthritis. COMPARISON: 08/28/2018 TECHNIQUE: 3 views of each hand. FINDINGS: Three views of the right hand do not demonstrate any evidence of acute fracture or dislocation. There is osteopenia present. There is significant joint space narrowing and spurring involving the 1st carpometacarpal joint. There is joint space narrowing seen involving the 2nd and 3rd metacarpophalangeal joints with some spurring marginally.There is narrowing of the proximal and distal interphalangeal joints with spurring present and most significant degenerative change involving the 3rd distal interphalangeal joint. These findings are essentially unchanged from previous examination of 08/28/2018. Three views of the left hand performed. There is degenerative change of the 1st carpometacarpal joint with sclerosis and spurring. There is some degenerative narrowing of the 2nd metacarpophalangeal joint. There is narrowing with marginal spurring seen within the proximal and distal interphalangeal joints with marginal spurring most prominent involving the 2nd proximal interphalangeal joint and 3rd distal interphalangeal joint where there is some articular bone irregularity present with loss of joint space. No erosive change is appreciated. Findings stable from previous study. XR/XR hand LT min 3V IMPRESSION: Stable degenerative change of both hands predominantly involving the 1st carpometacarpal joints and interphalangeal joints, as well as the 2nd metacarpophalangeal joints. No erosive changes identified.
--- NOTE | ~2021-02-23 | XR_ITS ---
EXAMINATION: XR HAND, RIGHT XR HAND, LEFT CLINICAL INFORMATION: Erosive osteoarthritis. COMPARISON: 08/28/2018 TECHNIQUE: 3 views of each hand. FINDINGS: Three views of the right hand do not demonstrate any evidence of acute fracture or dislocation. There is osteopenia present. There is significant joint space narrowing and spurring involving the 1st carpometacarpal joint. There is joint space narrowing seen involving the 2nd and 3rd metacarpophalangeal joints with some spurring marginally.There is narrowing of the proximal and distal interphalangeal joints with spurring present and most significant degenerative change involving the 3rd distal interphalangeal joint. These findings are essentially unchanged from previous examination of 08/28/2018. Three views of the left hand performed. There is degenerative change of the 1st carpometacarpal joint with sclerosis and spurring. There is some degenerative narrowing of the 2nd metacarpophalangeal joint. There is narrowing with marginal spurring seen within the proximal and distal interphalangeal joints with marginal spurring most prominent involving the 2nd proximal interphalangeal joint and 3rd distal interphalangeal joint where there is some articular bone irregularity present with loss of joint space. No erosive change is appreciated. Findings stable from previous study. XR/XR hand RT min 3V IMPRESSION: Stable degenerative change of both hands predominantly involving the 1st carpometacarpal joints and interphalangeal joints, as well as the 2nd metacarpophalangeal joints. No erosive changes identified.
[2021-02-23 11:14] LABS: MANUAL DIFF FLAG NO
[2021-02-23 11:54] LABS: Basophils Absolute Auto 0.1 X10*3/uL (0.0-0.2); Basophils Percent Auto 1.3 % (0-2); Eosinophils Absolute Auto 0.1 X10*3/uL (0.0-0.4); Eosinophils Percent Auto 2.5 % (0-4); Hematocrit 38.8 % (42.0-52.0); Hemoglobin 12.7 g/dl (14.0-18.0); Imm Gran Abs Auto 0.01 X10*3/uL (0.00-0.03); Imm Gran Pct Auto 0.2 % (0.0-0.4); Lymphocytes Percent Auto 21.2 % (20-40); Mean Corpuscular HGB Conc 32.7 g/dl (31.0-36.0); Mean Corpuscular Hemoglobin 32.3 pg (27.0-33.0); Mean Corpuscular Volume 98.7 fL (80.0-98.0); Mean Platelet Volume 11.3 fL (9.4-12.4); Monocytes Absolute Auto 0.4 X10*3/uL (0.1-1.2); Monocytes Percent Auto 9.2 % (2-11); Neutrophils Absolute Auto 3.1 x10*3/uL (2.0-8.3); Neutrophils Percent Auto 65.6 % (45-73); Platelet Count 242 X10*3/uL (160-400); Red Blood Count 3.93 X10*6/uL (4.60-5.80); Red Cell Distribution Width 12.8 % (11.0-16.0); White Blood Count 4.8 X10*3/uL (4.8-10.8)
[2021-02-23 12:28] LABS: Alanine Aminotransferase 20 U/L (0-40); Alkaline Phosphatase 93 U/L (39-117); Anion Gap 16 (12-20); Aspartate Amino Transferase 23 U/L (5-37); Bilirubin Total 0.7 mg/dL (0.0-1.0); Blood Urea Nitrogen 18 mg/dL (9-16); C Reactive Protein 0.16 mg/dL (< or = 0.50); Calcium 9.3 mg/dL (8.4-10.2); Carbon Dioxide 24 mmol/L (22-29); Chloride 105 mmol/L (96-108); Estimated Glomerular Filt Rate > 60; Glucose Random 88 mg/dL (60-115); Potassium 4.7 mmol/L (3.3-5.1); Sodium 140 mmol/L (135-145); Total Protein 6.6 g/dL (6.5-8.0); Uric Acid 4.2 mg/dL (3.4-7.0)
[2021-02-23 12:30] LABS: Erythrocyte Sedimentation Rate 21 MM/HR (0-15)
== END 2021-02-23 10:00 | disposition home or self-care (01) ==
LOC: HO.LAB 09:59
PROVIDERS: PCP Internal Medicine; Visit Provider Nurse Practitioner Family
DX: M1A.00X0 Idiopathic chronic gout, unspecified site, without tophus (tophi) (principal); M15.4 Erosive (osteo)arthritis; L40.50 Arthropathic psoriasis, unspecified; M79.641 Pain in right hand; M79.642 Pain in left hand; I48.91 Unspecified atrial fibrillation; M10.9 Gout, unspecified; Z79.899 Other long term (current) drug therapy; Z79.01 Long term (current) use of anticoagulants
CPT/HCPCS: 36415; 73130; 80053; 84550; 85025; 85652; 86140; 99212

== ENCOUNTER 2021-03-09 16:00 | Outpatient (REF) | payer MEDICARE, SELFPAY ==
[2021-03-09 17:28] LABS: Vitamin B12 1645 pg/mL (200-900)
== END 2021-03-09 16:01 | disposition home or self-care (01) ==
LOC: HO.LAB 16:00
PROVIDERS: PCP Internal Medicine; Visit Provider Psychiatry & Neurology Neurology
DX: F03.91 Unspecified dementia, unspecified severity, with behavioral disturbance (principal)
CPT/HCPCS: 36415; 82607

== ENCOUNTER → 2021-03-14 11:38 | Outpatient (BNVA) | payer MEDICARE, SELFPAY | PROVIDERS: PCP Internal Medicine; Referring Provider Internal Medicine; Visit Provider Psychiatry & Neurology Neurology | DX: G47.33 Obstructive sleep apnea (adult) (pediatric) (principal); Z99.89 Dependence on other enabling machines and devices | CPT/HCPCS: 99212 ==

== ENCOUNTER 2021-04-17 11:00 | Outpatient (RCR) | payer MEDICARE, SELFPAY ==
--- NOTE | 2021-03-28 12:01 | MHC.OT.OEV ---
[address] [phone] F: [phone] Occupational Therapy Evaluation Diagnosis: B/L HAND PAIN; EROSIVE OA Date of Onset: 04/08/13 Attending Provider: Tita Brandon Prescribed Treatment: EVAL AND TREAT History of Current Condition: REPORTS B/L HAND PAIN, RIGHT GREATER THAN LEFT, FOR MORE THAN FIVE YEARS. PAIN IS GREATEST IN THE MORNING AND IS HAVING INCREASED DIFFICULTIES WITH SELF CARE TASKS. Stable degenerative change of both hands predominantly involving the 1st carpometacarpal joints and interphalangeal joints, as well as the 2nd metacarpophalangeal joints. FROM [facility] DATED 02/23/21 Significant Medical History: OSTEOPOROSIS, EROSIVE OSTEOARTHRITIS, VASCULAR DISEASE, HX CVA, BACK PROBLEMS. HX OF ATTENDANCE TO CARDIAC REHAB AND OUTPATIENT PT. Precautions/Contraindications: LOW VISION Patient Goals: TO HAVE NO PAIN Hand Dominance: Right QuickDASH Score: 57% Prior Level of Function and Occupation Self Care, Employment, Leisure: RETIRED. IND WITH ADLs INCLUDING BATHING AND DRESSING. SPOUSE ASSISTING WITH ALL IADLs INCLUDING MED MANAGEMENT. 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 REPORTS LIMITATIONS IN HOBBIES DUE TO LOW VISION. Living Situation, Family and/or Social Support: LIVES WITH SPOUSE Current Level of Function and Occupation Self Care, Employment, Leisure: REPORTS INCREASED DIFFICULTIES WITH BUTTONS, ZIPPERS AND PERFORMING SELF CARE TASKS. TROUBLE HOLDING COFFEE CUP AND POURING COFFEE FROM POT. Sleep: DIFFICULTIES WITH FINDING COMFORTABLE POSITION FOR HANDS AT NIGHT Driving: DOES NOT DRIVE DUE TO VISION IMPAIRMENTS Vision: MACULAR DEGENERATION. RECEIVES LOW VISION SERVICES FOR ADAPTATIONS IN HOME. Balance: AMBULATES WITH SPC. HX OA IN KNEES Pain Assessment Pain Score: 4-6/10 Pain Scale Used: Numeric (0 - 10) Pain Location and Description: B/L HANDS, MOSTLY PIPj AND DIPj RIGHT HAND GREATER THAN LEFT D2-D5 Aggravating Factors: COLD, GRIPPING Alleviating Factors: WEARING GLOVES, HEAT/ WARM WATER SOAKS IN AM, ACETAMINOPHEN HAS TRIED ASPERCREAM IN THE PAST Skin and Soft Tissue Assessment Skin and Soft Tissue: Comments: OA CHANGES IN DIGITS, SWAN NECK DEFORMITY OF L D3 WITH PIP EXT CONTRACTURE Edema Assessment Upper Extremity: Right Impaired Left Impaired Lower Extremity: Comments: REPORTS SWELLING IN DIGITS CIRCUMFERENCE OF R LONG FINGER PIPj 7.2 CM; L POINTER FINGER 7.3 CM Dexterity Assessment Dexterity: B/L Impaired Comments: FUNCTIONAL DEXTERITY TEST- RIGHT: 49 SECONDS, LEFT: 57 SECONDS (+ 3 DROPS) DIFFICULTIES ZIPPING COAT IN CLINIC AROM(PROM) Strength Shoulder Flexion: Extension: Abduction: Internal Rotation: External Rotation: Comments: Flexion: R 4/5, L 4/5 Extension: Abduction: Internal Rotation: External Rotation: Comments: Elbow Flexion: Extension: Pronation: Supination: Comments: Flexion: R 4/5, L 4/5 Extension: Pronation: Supination: Comments: Wrist Flexion: Extension: Ulnar Deviation: Radial Deviation: Comments: PAIN IN LEFT WRIST WITH UD/RD; RANGE WFL Flexion: Extension: Ulnar Deviation: Radial Deviation: Comments: Digits Index MCP: PIP: DIP: Long MCP: PIP: DIP: Ring MCP: PIP: DIP: Small MCP: PIP: DIP: Comments: ACHIEVES COMPOSITE FIST IN R HAND, GROSSLY 3.5 CM D2 TIP TO DPC Gross Grasp: R 60, L 55 Lateral Pinch: R 14, L 12 Two-Point Pinch: Three-Jaw Luciano: Comments: Patient Education Primary Language: Monegasque Medical Administrative Technician Required: No Current Knowledge: Minimal, needs reinforcement Teaching Method: Audio/Video Demonstration Handouts Verbal Education Needs Identified on Evaluation: ADL's Disease Information Equipment Use Exercise Pain Safety How did patient/family demonstrate learning? Patient verbalizes Family/SO demonstrates Needs reinforcement Barriers to Learning: Vision Readiness for Learning: Accepting Who was educated? Patient Family/spouse Comments: Plan of Care Assessment: MR BARRERA PRESENTS TO OT WITH EROSIVE OSTEOARTHRITIS. HE C/O INCREASING DIFFICULTIES WITH ADLs, INCLUDING NEED FOR ASSIST TO DRESS SELF FOR BUTTONS AND ZIPPERS. Pt REPORTS PAIN IS GREATEST IN THE MORNING AND WHEN THE HANDS ARE COLD; HE HAS FOUND SOME RELIEF WITH SOAKING HANDS IN WARM WATER AND WEARING GLOVES DURING THE DAY. HIS SUPPORTIVE SPOUSE IS PRESENT FOR HIS OT EVAL AND PROVIDES ASSIST WITH ALL IADLs AT HOME INCLUDING MED MANAGEMENT AND TRANSPORTATION. Pt HAS LOW VISION/ MACULAR DEGENERATION SO IT IS DIFFICULT FOR HIM TO PARTICIPATE IN PREVIOUS HOBBIES. A 57% LIMITATION IS REPORTED PER THE QUICK DASH ASSESSMENT. ONGOING SKILLED OT IS WARRANTED TO PROVIDE Pt AND CAREGIVER EDUCATION, DECREASE PAIN, INCREASE ROM AND INCREASE QOL. STG Duration: 2 WEEKS Short Term Goals: S HEP S USE OF HEAT INCLUDING HOME PARAFFIN UNIT Pt AND SPOUSE TO DEMO GOOD FOLLOW THROUGH WITH JOINT PROTECTION STRATEGIES REPORT <2/10 PAIN AT REST LTG Duration: Correction Goals: DEMO LESS THAN MIN DIFFICULTIES WITH ADL CLOSURE BOARD AND USE AE NEEDED FOR ADLs REPORT <4/10 PAIN WITH BADLs QUICK DASH <40% Frequency and Duration: The patient will be seen 2X/WEEK FOR 4 WEEKS Treatment Plan: Therapeutic Exercise Therapeutic Activity Home Exercise Program Splinting Neuro Re-ed Patient Education Desensitization/Sensory Re-ed Edema Control ADL Training Ultrasound NMES Iontophoresis Paraffin Fluidotherapy MHP Cold Packs Joint Mobilization Soft Tissue Mobilization Kinesiotaping Electronically Signed By: UYRI PENG/Farhana Reviewed/agree with student documentation: N/A Therapist: Please sign and return to therapist, Thank you for your referral.
--- NOTE | 2021-04-17 14:13 | MHC.OT.DC ---
[address] [phone] F: [phone] Occupational Therapy Discharge Note Provider: Tita Brandon Diagnosis: B/L HAND PAIN; EROSIVE OA Date of Evaluation: 03/27/21 Date of Discharge: 04/17/21 Treatments to Date: 4 Discharge Status: Achieved Goals Improved Function Independent with HEP Discharge Summary: MR BARRERA HAS PROGRESSED WELL WITH HIS OT SESSIONS. HE COMES TO OT WITH HIS SUPPORTIVE SPOUSE PRESENT. BOTH ARE VERY RECEPTIVE TO SELF MANAGEMENT OF ARTHRITIS SYMPTOMS, INCLUDING INTEREST IN PURCHASING HOME PARAFFIN UNIT AND ADAPTIVE EQUIPMENT TO PROMOTE INDEPENDENCE WITH BADLs. HE NO LONGER C/O PAIN OR STIFFNESS IN THE AM AND IS ABLE TO CARRYOVER HIS HEP WITH GOOD UNDERSTANDING. Pt IS READY FOR A TRANSITION TO A HOME BASED PROGRAM. D/C OT SERVICES. Electronically Signed By: YURI PENG/Farhana Reviewed/agree with student documentation: N/A Therapist: Please Sign and return to therapist, thank you for your referral.
== END 2021-04-17 14:10 | disposition home or self-care (01) ==
LOC: HO.OT 11:00
PROVIDERS: PCP Internal Medicine; Visit Provider Nurse Practitioner Family
DX: M15.4 Erosive (osteo)arthritis (principal); M79.641 Pain in right hand; M79.642 Pain in left hand
CPT/HCPCS: 97110; 97140; 97166; 97530

== ENCOUNTER → 2021-05-01 08:54 | Outpatient (BNVA) | payer MEDICARE, SELFPAY | PROVIDERS: PCP Internal Medicine; Referring Provider Internal Medicine; Visit Provider Internal Medicine | DX: I25.10 Atherosclerotic heart disease of native coronary artery without angina pectoris (principal); R53.83 Other fatigue; I48.0 Paroxysmal atrial fibrillation; I63.40 Cerebral infarction due to embolism of unspecified cerebral artery; R60.0 Localized edema; I10 Essential (primary) hypertension; G47.33 Obstructive sleep apnea (adult) (pediatric); Z99.89 Dependence on other enabling machines and devices; Z79.01 Long term (current) use of anticoagulants | CPT/HCPCS: 93005; 99212 ==

== ENCOUNTER 2021-05-23 11:22 | Outpatient (REF) | payer MEDICARE, SELFPAY ==
[2021-05-23 12:26] LABS: MANUAL DIFF FLAG NO
[2021-05-23 12:59] LABS: Basophils Absolute Auto 0.1 X10*3/uL (0.0-0.2); Basophils Percent Auto 0.9 % (0-2); Eosinophils Absolute Auto 0.1 X10*3/uL (0.0-0.4); Eosinophils Percent Auto 1.3 % (0-4); Hematocrit 38.4 % (42.0-52.0); Hemoglobin 12.8 g/dl (14.0-18.0); Imm Gran Abs Auto 0.02 X10*3/uL (0.00-0.03); Imm Gran Pct Auto 0.4 % (0.0-0.4); Lymphocytes Absolute Auto 0.9 X10*3/uL (1.2-4.9); Lymphocytes Percent Auto 16.3 % (20-40); Mean Corpuscular HGB Conc 33.3 g/dl (31.0-36.0); Mean Corpuscular Hemoglobin 31.8 pg (27.0-33.0); Mean Corpuscular Volume 95.3 fL (80.0-98.0); Mean Platelet Volume 10.7 fL (9.4-12.4); Monocytes Absolute Auto 0.5 X10*3/uL (0.1-1.2); Monocytes Percent Auto 8.9 % (2-11); Neutrophils Absolute Auto 4.1 x10*3/uL (2.0-8.3); Neutrophils Percent Auto 72.2 % (45-73); Platelet Count 245 X10*3/uL (160-400); Red Blood Count 4.03 X10*6/uL (4.60-5.80); Red Cell Distribution Width 14.5 % (11.0-16.0); White Blood Count 5.6 X10*3/uL (4.8-10.8)
[2021-05-23 13:17] LABS: Alanine Aminotransferase 25 U/L (0-40); Albumin Level 4.1 g/dL (3.5-5.0); Alkaline Phosphatase 113 U/L (39-117); Anion Gap 14 (12-20); Aspartate Amino Transferase 27 U/L (5-37); Bilirubin Total 0.6 mg/dL (0.0-1.0); Blood Urea Nitrogen 20 mg/dL (9-16); C Reactive Protein 0.13 mg/dL (< or = 0.50); Calcium 9.6 mg/dL (8.4-10.2); Carbon Dioxide 26 mmol/L (22-29); Chloride 105 mmol/L (96-108); Estimated Glomerular Filt Rate > 60; Glucose Random 73 mg/dL (60-115); Potassium 4.5 mmol/L (3.3-5.1); Sodium 140 mmol/L (135-145); Total Protein 6.8 g/dL (6.5-8.0)
[2021-05-23 13:39] LABS: Erythrocyte Sedimentation Rate 20 MM/HR (0-15)
[2021-05-23 13:42] LABS: Prostate Specific Antigen < 0.05 ng/mL (<0.05-4.0)
[2021-05-27 10:06] LABS: Testosterone, Total 119 ng/dL (250-1100)
== END 2021-05-23 11:23 | disposition home or self-care (01) ==
LOC: HO.LAB 11:22
PROVIDERS: Absent Provider Nurse Practitioner Family; PCP Internal Medicine; Visit Provider Urology
DX: C61 Malignant neoplasm of prostate (principal); L40.50 Arthropathic psoriasis, unspecified; M17.0 Bilateral primary osteoarthritis of knee; M1A.00X0 Idiopathic chronic gout, unspecified site, without tophus (tophi); Z12.5 Encounter for screening for malignant neoplasm of prostate
CPT/HCPCS: 36415; 80053; 84153; 84403; 85025; 85652; 86140; 99212

== ENCOUNTER → 2021-06-07 09:17 | Outpatient (REF) | payer MEDICARE, SELFPAY ==
--- NOTE | 2021-06-07 09:20 | CA_ITS ---
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 Study Quality: Fair ECG Rhythm: Sinus Conclusions: - 1. Normal LV systolic function with impaired relaxation filling pattern with elevated filling pressures with underlying wall motion abnormality suggestive of coronary artery disease 2. Mildly dilated left atrium 3. Severe mitral calcification with mild mitral regurgitation 4. Mildly dilated ascending aorta 5. No pericardial effusion Findings Left Ventricle Normal left ventricular size, thickness, and systolic function. The visually estimated ejection fraction is between 60-65%. Spectral Doppler is indicative of an impaired relaxation filling pattern. Elevated filling pressures. E/E prime ratio is >15, consistent with elevated filling pressures. Wall Motion Rest Echo Findings The basal inferior and basal inferolateral segments are hypokinetic. All other scored wall segments showed normal motion. Right Ventricle Normal right ventricular cavity size and systolic function. Atria The left atrium is mildly dilated. There is no evidence of interatrial shunt. The right atrium is normal in size. Aortic Valve The aortic valve structure and function is likely normal. There is mild thickening of the aortic valve. There is no aortic valve stenosis. There is trace (trivial) aortic valve regurgitation. Mitral Valve There is mild anterior and severe posterior mitral leaflet thickening. There is severe mitral annular calcification. There is mild mitral valve regurgitation. There is no mitral valve stenosis. Pulmonic Valve The pulmonic valve was not well visualized. Tricuspid Valve Likely normal tricuspid valve structure and function. There is mild tricuspid valve regurgitation. The right ventricular systolic pressure is normal. The right ventricular systolic pressure is 27 mmHg. Normal right atrial pressure. There is no evidence of pulmonary hypertension. Great Vessels The pulmonary artery was not well visualized. There is mild dilatation of the ascending aorta measuring 4.00 cm. Venous The inferior vena cava is normal in size and collapses greater than 50% with inspiration. Pericardium/Pleural There is no evidence of pericardial effusion. Prior Study Comparison No significant change compared to prior study dated: 12/16/2019. Measurements 2D Linear Measurements IVSd: 1.08 0.6-0.9/0.6-1.0 cm LVIDd: 5.08 3.9-5.3/4.2-5.9 cm LVIDd Index: 2.43 2.4-3.2/2.2-3.1 cm/m2 LVIDs: 3.41 2.0-3.6 cm LVPWd: 1.07 0.7-1.1 cm Ao Root: 4.10 2.1-3.5 cm LA Diam: 3.30 2.7-3.8/3.0-4.0 cm LAIDs Index: 1.58 1.5-2.3 cm/m2 LV Mass: 256.71 67-162/88-224 g LV Mass Index: 122.83 43-95/49-115 g/m2 LVOT Diam: 2.20 3.0+(-)1.3 cm 2D Systolic Function EF 4C: 59.10 >55% EF 2C: 65.20 >55% EF BiP: 61.80 >55% Mitral Valve MV VTI: 0.59 MV Pk Lew: 1.45 MV Mn Lew: 0.88 MV Pk Grad: 8.00 MV Mn Grad: 3.00 MV Pk E: 0.94 MV PK A: 1.19 MV Decel Time: 346.00 E/A: 0.80 E'Lateral: 4.68 E'Medial: 5.11 E/E' Med: 18.40 E/E' Lat: 20.00 PHT: 101.00 MVA PHT: 2.18 MVA Continuity: 1.68 Decel [place]: 2.71 Aortic Valve AoV Pk Lew: 1.46 AoV Mn Lew: 1.03 AoV VTI: 0.32 AoV Pk Grad: 9.00 Aov Mn Grad: 5.00 MARCIAL Cont.VTI: 3.17 LVOT LVOT Pk Lew: 1.13 LVOT Mn Lew: 0.76 LVOT VTI: 0.26 LVOT Pk Grad: 5.00 LVOT Mn Grad: 3.00 LVOT Diam: 2.20 LVOT Area: 3.80 Diastolic Function MV Pk E: 0.94 MV Pk A: 1.19 E/A: 0.80 E'Medial: 5.11 E/E' Med: 18.40 E' Laterial: 4.68 E/E' Lat: 20.00 Right Ventricle TAPSE (mm): 22.00 TVS' Lew: 11.00 Tricuspid Valve TR Pk Lew: 2.44 TR Pk Grad: 24.00 RA Press: 3.00 RVSP: 27.00 Great Vessels Aorta Ao Root-2D: 4.10 2.0-3.7 cm Ao Asc: 4.00 2.1-3.4 cm Ao Arch: 3.50 Updated in Other Vendor System with Status of Final Charly Butt MD electronically signed on 06/07/2021 1:27:46 PM with status of Final
== END ==
LOC: HO.CARD 09:17
PROVIDERS: PCP Internal Medicine; Visit Provider Internal Medicine
DX: I25.10 Atherosclerotic heart disease of native coronary artery without angina pectoris (principal)
CPT/HCPCS: 93306

== ENCOUNTER → 2021-06-09 08:22 | Outpatient (BNVA) | payer MEDICARE, SELFPAY | PROVIDERS: PCP Internal Medicine; Visit Provider Urology | DX: C61 Malignant neoplasm of prostate (principal) | CPT/HCPCS: Q3014 ==

== ENCOUNTER → 2021-06-13 09:04 | Outpatient (BNVA) | payer MEDICARE, SELFPAY | PROVIDERS: PCP Internal Medicine; Referring Provider Internal Medicine; Visit Provider Psychiatry & Neurology Neurology | DX: G47.33 Obstructive sleep apnea (adult) (pediatric) (principal); Z99.89 Dependence on other enabling machines and devices | CPT/HCPCS: 99212 ==

== ENCOUNTER → 2021-06-27 09:25 | Outpatient (BNVA) | payer MEDICARE, SELFPAY | PROVIDERS: PCP Internal Medicine; Referring Provider Internal Medicine; Visit Provider Internal Medicine | DX: I25.10 Atherosclerotic heart disease of native coronary artery without angina pectoris (principal); I48.0 Paroxysmal atrial fibrillation; I63.40 Cerebral infarction due to embolism of unspecified cerebral artery; I10 Essential (primary) hypertension; G47.33 Obstructive sleep apnea (adult) (pediatric); R60.0 Localized edema; Z99.89 Dependence on other enabling machines and devices | CPT/HCPCS: 99212 ==

== ENCOUNTER → 2021-07-25 09:54 | Outpatient (BNVA) | payer MEDICARE, SELFPAY | PROVIDERS: PCP Internal Medicine; Visit Provider Nurse Practitioner Family | DX: G47.33 Obstructive sleep apnea (adult) (pediatric) (principal); Z99.89 Dependence on other enabling machines and devices | CPT/HCPCS: 99212 ==

== ENCOUNTER 2021-08-04 11:39 | Outpatient (REF) | payer MEDICARE, SELFPAY ==
[2021-08-04 12:20] LABS: MANUAL DIFF FLAG NO
[2021-08-04 12:38] LABS: Basophils Percent Auto 0.7 % (0-2); Eosinophils Absolute Auto 0.1 X10*3/uL (0.0-0.4); Eosinophils Percent Auto 1.5 % (0-4); Hematocrit 37.5 % (42.0-52.0); Hemoglobin 12.4 g/dl (14.0-18.0); Imm Gran Abs Auto 0.01 X10*3/uL (0.00-0.03); Imm Gran Pct Auto 0.2 % (0.0-0.4); Lymphocytes Absolute Auto 0.9 X10*3/uL (1.2-4.9); Lymphocytes Percent Auto 16.2 % (20-40); Mean Corpuscular HGB Conc 33.1 g/dl (31.0-36.0); Mean Corpuscular Hemoglobin 32.3 pg (27.0-33.0); Mean Corpuscular Volume 97.7 fL (80.0-98.0); Mean Platelet Volume 10.7 fL (9.4-12.4); Monocytes Absolute Auto 0.3 X10*3/uL (0.1-1.2); Monocytes Percent Auto 5.9 % (2-11); Neutrophils Absolute Auto 4.1 x10*3/uL (2.0-8.3); Neutrophils Percent Auto 75.5 % (45-73); Platelet Count 265 X10*3/uL (160-400); Red Blood Count 3.84 X10*6/uL (4.60-5.80); Red Cell Distribution Width 14.6 % (11.0-16.0); White Blood Count 5.4 X10*3/uL (4.8-10.8)
[2021-08-04 13:02] LABS: Alanine Aminotransferase 16 U/L (0-40); Alkaline Phosphatase 110 U/L (39-117); Anion Gap 11 (12-20); Aspartate Amino Transferase 21 U/L (5-37); Bilirubin Total 0.6 mg/dL (0.0-1.0); Blood Urea Nitrogen 14 mg/dL (9-16); C Reactive Protein 0.19 mg/dL (< or = 0.50); Calcium 9.5 mg/dL (8.4-10.2); Carbon Dioxide 27 mmol/L (22-29); Chloride 105 mmol/L (96-108); Estimated Glomerular Filt Rate > 60; Glucose Random 92 mg/dL (60-115); Potassium 4.1 mmol/L (3.3-5.1); Sodium 139 mmol/L (135-145); Total Protein 6.6 g/dL (6.5-8.0)
[2021-08-04 13:22] LABS: Erythrocyte Sedimentation Rate 38 MM/HR (0-15)
[2021-08-04 13:26] LABS: Vitamin D 25-OH Total 65.6 ng/mL (>30)
[2021-08-04 13:42] LABS: TSH reflex Free T4 1.09 uIU/mL (0.32-4.0)
[2021-08-07 17:27] LABS: Erythropoietin (EPO) 22.7 mIU/mL (2.6-18.5)
== END 2021-08-04 11:40 | disposition home or self-care (01) ==
LOC: HO.LAB 11:39
PROVIDERS: PCP Internal Medicine; Visit Provider Nurse Practitioner Family
DX: I10 Essential (primary) hypertension (principal); D64.9 Anemia, unspecified; E55.9 Vitamin D deficiency, unspecified; E78.00 Pure hypercholesterolemia, unspecified; L40.50 Arthropathic psoriasis, unspecified
CPT/HCPCS: 36415; 80053; 82306; 82668; 84443; 85025; 85652; 86140; 86787

== ENCOUNTER → 2021-08-14 11:23 | Outpatient (BNVA) | payer MEDICARE, SELFPAY | PROVIDERS: PCP Internal Medicine; Visit Provider Nurse Practitioner Family | DX: L40.50 Arthropathic psoriasis, unspecified (principal); M1A.00X0 Idiopathic chronic gout, unspecified site, without tophus (tophi); M15.4 Erosive (osteo)arthritis; M54.50 Low back pain, unspecified | CPT/HCPCS: 99212 ==

== ENCOUNTER → 2021-09-19 09:55 | Outpatient (BNVA) | payer MEDICARE, SELFPAY | PROVIDERS: PCP Internal Medicine; Visit Provider Nurse Practitioner Family | DX: G47.33 Obstructive sleep apnea (adult) (pediatric) (principal); Z99.89 Dependence on other enabling machines and devices | CPT/HCPCS: 99212 ==

== ENCOUNTER 2021-10-25 13:43 | Outpatient (REF) | payer MEDICARE, SELFPAY ==
[2021-10-25 14:08] LABS: MANUAL DIFF FLAG NO
[2021-10-25 14:12] LABS: Basophils Percent Auto 0.7 % (0-2); Eosinophils Absolute Auto 0.1 X10*3/uL (0.0-0.4); Eosinophils Percent Auto 1.1 % (0-4); Hematocrit 39.7 % (42.0-52.0); Hemoglobin 12.8 g/dl (14.0-18.0); Imm Gran Abs Auto 0.03 X10*3/uL (0.00-0.03); Imm Gran Pct Auto 0.6 % (0.0-0.4); Lymphocytes Absolute Auto 0.9 X10*3/uL (1.2-4.9); Mean Corpuscular HGB Conc 32.2 g/dl (31.0-36.0); Mean Corpuscular Hemoglobin 31.3 pg (27.0-33.0); Mean Corpuscular Volume 97.1 fL (80.0-98.0); Mean Platelet Volume 10.4 fL (9.4-12.4); Monocytes Absolute Auto 0.2 X10*3/uL (0.1-1.2); Monocytes Percent Auto 3.9 % (2-11); Neutrophils Absolute Auto 4.2 x10*3/uL (2.0-8.3); Neutrophils Percent Auto 77.7 % (45-73); Platelet Count 251 X10*3/uL (160-400); Red Blood Count 4.09 X10*6/uL (4.60-5.80); Red Cell Distribution Width 14.2 % (11.0-16.0); White Blood Count 5.4 X10*3/uL (4.8-10.8)
[2021-10-25 14:34] LABS: Alanine Aminotransferase 20 U/L (0-40); Albumin Level 3.9 g/dL (3.5-5.0); Alkaline Phosphatase 118 U/L (39-117); Anion Gap 13 (12-20); Aspartate Amino Transferase 26 U/L (5-37); Bilirubin Total 0.7 mg/dL (0.0-1.0); Blood Urea Nitrogen 14 mg/dL (9-16); Calcium 8.5 mg/dL (8.4-10.2); Carbon Dioxide 23 mmol/L (22-29); Chloride 108 mmol/L (96-108); Estimated Glomerular Filt Rate > 60; Glucose Random 94 mg/dL (60-115); Potassium 4.8 mmol/L (3.3-5.1); Sodium 139 mmol/L (135-145); Total Protein 6.4 g/dL (6.5-8.0)
[2021-10-25 14:52] LABS: Thyroid Stimulating Hormone 1.09 uIU/mL (0.32-4.0)
== END 2021-10-25 13:44 | disposition home or self-care (01) ==
LOC: HO.LAB 13:43
PROVIDERS: PCP Internal Medicine; Visit Provider Internal Medicine
DX: R19.7 Diarrhea, unspecified (principal)
CPT/HCPCS: 36415; 80053; 84443; 85025

== ENCOUNTER 2021-10-31 16:45 | Outpatient (REF) | payer MEDICARE, SELFPAY ==
[2021-11-01 12:03] LABS: Leukocytes Stool Qualitative NEGATIVE (NEGATIVE)
[2021-11-01 12:21] LABS: CDiff Gene PCR NEGATIVE (Negative)
== END 2021-10-31 16:46 | disposition home or self-care (01) ==
LOC: HO.LNP 16:45
PROVIDERS: Visit Provider Internal Medicine
DX: R19.7 Diarrhea, unspecified (principal)
CPT/HCPCS: 87493; 89055

== ENCOUNTER → 2021-11-23 11:23 | Outpatient (BNVA) | payer MEDICARE, SELFPAY | PROVIDERS: PCP Internal Medicine; Visit Provider Nurse Practitioner Family | DX: M1A.00X0 Idiopathic chronic gout, unspecified site, without tophus (tophi) (principal); L40.50 Arthropathic psoriasis, unspecified; M54.50 Low back pain, unspecified; M17.0 Bilateral primary osteoarthritis of knee | CPT/HCPCS: 99212 ==

== ENCOUNTER → 2021-11-28 11:25 | Outpatient (BNVA) | payer MEDICARE, SELFPAY | PROVIDERS: PCP Internal Medicine; Visit Provider Nurse Practitioner Family | DX: G47.33 Obstructive sleep apnea (adult) (pediatric) (principal); Z99.89 Dependence on other enabling machines and devices | CPT/HCPCS: 99212 ==

== ENCOUNTER 2021-12-04 11:02 | Outpatient (REF) | payer MEDICARE, SELFPAY ==
[2021-12-04 12:40] LABS: Uric Acid 3.9 mg/dL (3.4-7.0)
[2021-12-04 12:59] LABS: Prostate Specific Antigen 3.03 ng/mL (<0.05-4.0)
[2021-12-08 12:41] LABS: Testosterone, Total 165 ng/dL (250-1100)
== END 2021-12-04 11:03 | disposition home or self-care (01) ==
LOC: HO.LAB 11:02
PROVIDERS: Nurse Practitioner Family; PCP Internal Medicine; Visit Provider Urology
DX: Z12.5 Encounter for screening for malignant neoplasm of prostate (principal); C61 Malignant neoplasm of prostate; M1A.00X0 Idiopathic chronic gout, unspecified site, without tophus (tophi)
CPT/HCPCS: 36415; 84153; 84403; 84550

== ENCOUNTER → 2021-12-08 08:20 | Outpatient (BNVA) | payer MEDICARE, SELFPAY | PROVIDERS: PCP Internal Medicine; Visit Provider Urology | DX: C61 Malignant neoplasm of prostate (principal) | CPT/HCPCS: Q3014 ==

== ENCOUNTER → 2021-12-14 09:30 | Outpatient (BNVA) | payer MEDICARE, SELFPAY | PROVIDERS: PCP Internal Medicine; Referring Provider Internal Medicine; Visit Provider Internal Medicine | DX: I25.10 Atherosclerotic heart disease of native coronary artery without angina pectoris (principal); I48.0 Paroxysmal atrial fibrillation; I63.40 Cerebral infarction due to embolism of unspecified cerebral artery; I10 Essential (primary) hypertension; R60.0 Localized edema; G47.33 Obstructive sleep apnea (adult) (pediatric); Z99.89 Dependence on other enabling machines and devices | CPT/HCPCS: 99212 ==

== ENCOUNTER → 2021-12-20 09:14 | Outpatient (REF) | payer MEDICARE, SELFPAY ==
--- NOTE | ~2021-12-20 | NM_ITS ---
Myocardial perfusion study Indication: Precordial chest pain Technique: The patient was brought in for a Lexiscan perfusion study on 12/21/2021. Patient performed low-level exercise and was injected 0.4 mg of Lexiscan intravenously. Within a minute of injection, 40 mCi of sestamibi was given intravenously. Images were obtained using the SPECT gamma camera interlaced with the gating device. Images were obtained in supine position. Resting perfusion study was performed on 12/26/2021. Patient was administered 40 mCi of sestamibi intravenously at rest. Images were then obtained in supine position. Images obtained with and without CT attenuation. Total DLP 122 mGy-cm. Images were processed with the software and compared side to side in short axis, horizontal long axis and vertical long axis views. Findings: The stress perfusion study showed non attenuated images show absent uptake in the basal and mid inferolateral wall with moderately reduced uptake in the apical inferolateral wall with moderately reduced uptake in the basal and mid lateral wall of the LV myocardium. Is also moderately reduced uptake in the basal inferior and mildly reduced uptake in the mid and apical inferior wall of the LV myocardium. Attenuation corrected images show improved uptake in the mid and apical inferior wall of the LV myocardium with mildly reduced uptake in the basal inferior wall of the LV myocardium. There is severely reduced uptake in the basal and mid inferolateral as well as mildly to moderately reduced uptake in the basal and mid lateral wall of the LV myocardium... The gated study shows normal LV systolic function with calculated LVEF of 65%. LV cavity is normal in size. The gated study shows reduced wall thickening and contraction of basal inferior and basal and mid inferolateral segments. Resting study shows nontender images show persistent absent uptake in the basal and mid inferolateral as well as the basal inferior wall of the LV myocardium. Is also reduced uptake in the mid and apical portion of the inferior wall. There is improved uptake in the basal and mid lateral wall of the LV myocardium.. Gating at rest reveals basal and mid inferolateral wall motion with ejection fraction at 60%. The findings are consistent with mostly fixed defect of the basal and mid inferolateral wall which could represent prior infarction. Severe ischemia cannot be entirely ruled out. There is reversible defect of the basal and mid lateral wall. Is also mild defect in the basal inferior wall suggestive of prior nontransmural infarct.. NM/NM cardiolite stress test Impression: 1. Myocardial perfusion imaging study shows nontransmural infarct of the basal inferior wall with fixed defect of the basal and mid inferolateral wall suggestive of prior VT reversible defect of the basal and mid lateral wall are present alfa-infarct ischemia 2. Gated LVEF is 65% 3. Transient ischemic dilatation not present EKG is nondiagnostic for ischemia
--- NOTE | 2021-12-20 09:16 | CA_ITS ---
Acquisition Time: 2021-12-20 09:28:30 Total Exercise Time: 00:02:00 Test Indications: Chest Pain Medications: SEE H Protocol: LEXISCAN Max HR: 096 BPM 70% of Pred: 137 BPM Max BP: 136/068 mmHG Max Work Load: 1.0 METS Pharmacological stress test with Lexiscan injection, while sitting and kicking his legs, without anginal symptoms, with isolated PVC,with normotensive response to injection, with nondiagnostic EKG for ischemia. In recovery he was treated with Aminphylline 75mg IVP to reverse Lexiscan. Nuclear images pending. Test reviewed with Dr Butt. Referred By: Aden Bean Overread By: ANTOINETTE KEARNS
== END ==
LOC: HO.CARD 09:14
PROVIDERS: PCP Internal Medicine; Visit Provider Internal Medicine
DX: I20.9 Angina pectoris, unspecified (principal); R07.2 Precordial pain
CPT/HCPCS: 78452; 93017; A9500; J0280; J2785

== ENCOUNTER → 2022-01-09 14:22 | Outpatient (BNVA) | payer MEDICARE, SELFPAY | PROVIDERS: PCP Internal Medicine; Referring Provider Internal Medicine; Visit Provider Internal Medicine | DX: I48.0 Paroxysmal atrial fibrillation (principal); I25.10 Atherosclerotic heart disease of native coronary artery without angina pectoris; I10 Essential (primary) hypertension; R60.0 Localized edema; G47.33 Obstructive sleep apnea (adult) (pediatric); Z86.73 Personal history of transient ischemic attack (TIA), and cerebral infarction without residual deficits; Z79.01 Long term (current) use of anticoagulants; Z79.899 Other long term (current) drug therapy; Z99.89 Dependence on other enabling machines and devices | CPT/HCPCS: 93005; 99212 ==

== ENCOUNTER → 2022-01-16 06:51 | Outpatient (REF) | payer MEDICARE, SELFPAY ==
--- NOTE | 2022-01-16 06:53 | HM_ITS ---
* Total monitoring time 2 days and 23 hours. * Underlying rhythm is atrial fibrillation. Average ventricular rate 98/Min. Range 73 to 154/Min. * About 7% the time, rate > 100/Min. * Rare ventricular ectopy with minimal burden. * No pauses or AV blocks. * No patient diary. MTDD
== END ==
LOC: HO.CARD 06:51
PROVIDERS: Visit Provider Internal Medicine
DX: I48.0 Paroxysmal atrial fibrillation (principal)
CPT/HCPCS: 93242

== ENCOUNTER 2022-01-19 10:33 | Outpatient (REF) | payer MEDICARE, SELFPAY ==
[2022-01-19 10:49] LABS: MANUAL DIFF FLAG NO
[2022-01-19 11:14] LABS: Basophils Absolute Auto 0.1 X10*3/uL (0.0-0.2); Basophils Percent Auto 0.9 % (0-2); Eosinophils Absolute Auto 0.1 X10*3/uL (0.0-0.4); Eosinophils Percent Auto 1.2 % (0-4); Hematocrit 38.2 % (42.0-52.0); Hemoglobin 12.4 g/dl (14.0-18.0); Imm Gran Abs Auto 0.04 X10*3/uL (0.00-0.03); Imm Gran Pct Auto 0.5 % (0.0-0.4); Lymphocytes Absolute Auto 0.8 X10*3/uL (1.2-4.9); Lymphocytes Percent Auto 9.2 % (20-40); Mean Corpuscular HGB Conc 32.5 g/dl (31.0-36.0); Mean Corpuscular Hemoglobin 32.7 pg (27.0-33.0); Mean Corpuscular Volume 100.8 fL (80.0-98.0); Mean Platelet Volume 10.6 fL (9.4-12.4); Monocytes Absolute Auto 0.5 X10*3/uL (0.1-1.2); Monocytes Percent Auto 5.7 % (2-11); Neutrophils Absolute Auto 7.1 x10*3/uL (2.0-8.3); Neutrophils Percent Auto 82.5 % (45-73); Platelet Count 271 X10*3/uL (160-400); Red Blood Count 3.79 X10*6/uL (4.60-5.80); Red Cell Distribution Width 15.7 % (11.0-16.0); White Blood Count 8.6 X10*3/uL (4.8-10.8)
[2022-01-19 11:40] LABS: Alanine Aminotransferase 22 U/L (0-40); Alkaline Phosphatase 105 U/L (39-117); Anion Gap 17 (12-20); Aspartate Amino Transferase 17 U/L (5-37); Bilirubin Total 0.9 mg/dL (0.0-1.0); Blood Urea Nitrogen 19 mg/dL (9-16); C Reactive Protein 0.79 mg/dL (< or = 0.50); Calcium 8.8 mg/dL (8.4-10.2); Carbon Dioxide 24 mmol/L (22-29); Chloride 106 mmol/L (96-108); Estimated Glomerular Filt Rate > 60; Glucose Random 100 mg/dL (60-115); Potassium 4.5 mmol/L (3.3-5.1); Sodium 142 mmol/L (135-145); Total Protein 6.6 g/dL (6.5-8.0)
[2022-01-19 11:56] LABS: Erythrocyte Sedimentation Rate 27 MM/HR (0-15)
== END 2022-01-19 10:34 | disposition home or self-care (01) ==
LOC: HO.LAB 10:33
PROVIDERS: PCP Internal Medicine; Visit Provider Nurse Practitioner Family
DX: L40.50 Arthropathic psoriasis, unspecified (principal)
CPT/HCPCS: 36415; 80053; 85025; 85652; 86140

== ENCOUNTER 2022-01-22 14:10 | Emergency (ER) | payer MEDICARE, SELFPAY ==
--- NOTE | ~2022-01-22 | XR_ITS ---
EXAMINATION: XR CHEST CLINICAL INFORMATION: Dyspnea. COMPARISON: CTA chest dated 04/15/2019; chest radiographs dated 04/09/2019. TECHNIQUE: 2 PA views of the chest were obtained. FINDINGS: The heart, great vessels, pulmonary vasculature and mediastinum are stable. There is atherosclerotic calcification of the aortic knob. The lungs show no infiltrate, effusion or pneumothorax. There is no acute osseous abnormality. There is a mild thoracolumbar dextroscoliosis. XR/XR chest 1V IMPRESSION: No active cardiopulmonary disease.
[2022-01-22 15:31] VITALS: BP 120/50; PULSE 105; RESP 22; TEMP 36; O2SAT 97; BMI 36.4
--- NOTE | 2022-01-22 15:36 | ECG_ITS ---
Test Reason : chest pain Blood Pressure : / mmHG Vent. Rate : 098 BPM Atrial Rate : 000 BPM P-R Int : 000 ms QRS Dur : 132 ms QT Int : 366 ms P-R-T Axes : 000 -08 005 degrees QTc Int : 467 ms Atrial fibrillation Right bundle branch block Abnormal ECG When compared with ECG of 21-SEP-2020 11:16, Atrial fibrillation has replaced Sinus rhythm Vent. rate has increased BY 37 BPM Right bundle branch block is now Present Premature ventricular complexes are no longer Present Referred By: Generic ED Physician Electronically Signed By:TYLER POPE MD
[2022-01-22 15:55] LABS: MANUAL DIFF FLAG NO
[2022-01-22 15:57] LABS: Basophils Absolute Auto 0.1 X10*3/uL (0.0-0.2); Basophils Percent Auto 0.8 % (0-2); Eosinophils Absolute Auto 0.1 X10*3/uL (0.0-0.4); Eosinophils Percent Auto 2.2 % (0-4); Hematocrit 37.6 % (42.0-52.0); Imm Gran Abs Auto 0.01 X10*3/uL (0.00-0.03); Imm Gran Pct Auto 0.2 % (0.0-0.4); Lymphocytes Absolute Auto 0.8 X10*3/uL (1.2-4.9); Lymphocytes Percent Auto 13.1 % (20-40); Mean Corpuscular HGB Conc 31.9 g/dl (31.0-36.0); Mean Corpuscular Hemoglobin 32.3 pg (27.0-33.0); Mean Corpuscular Volume 101.3 fL (80.0-98.0); Mean Platelet Volume 10.7 fL (9.4-12.4); Monocytes Absolute Auto 0.5 X10*3/uL (0.1-1.2); Monocytes Percent Auto 7.7 % (2-11); Neutrophils Absolute Auto 4.6 x10*3/uL (2.0-8.3); Platelet Count 220 X10*3/uL (160-400); Red Blood Count 3.71 X10*6/uL (4.60-5.80); Red Cell Distribution Width 15.7 % (11.0-16.0)
[2022-01-22 16:14] LABS: Alanine Aminotransferase 19 U/L (0-40); Albumin Level 3.9 g/dL (3.5-5.0); Alkaline Phosphatase 99 U/L (39-117); Anion Gap 17 (12-20); Aspartate Amino Transferase 21 U/L (5-37); Bilirubin Direct 0.3 mg/dL (0.0-0.5); Bilirubin Total 0.7 mg/dL (0.0-1.0); Blood Urea Nitrogen 17 mg/dL (9-16); Calcium 8.6 mg/dL (8.4-10.2); Carbon Dioxide 23 mmol/L (22-29); Chloride 107 mmol/L (96-108); Creatinine Clr Calc Pharmacy 68.3; Estimated Glomerular Filt Rate > 60; Glucose Random 91 mg/dL (60-115); Lipase 57 U/L (8-78); Potassium 5.1 mmol/L (3.3-5.1); Sodium 142 mmol/L (135-145); Total Protein 6.5 g/dL (6.5-8.0)
[2022-01-22 16:17] LABS: Troponin-I High Sensitivity 10.9 ng/L (<3.5-35.0)
[2022-01-22 17:35] VITALS: BP 132/68; PULSE 102; RESP 18; TEMP 36.4; O2SAT 98
[2022-01-22 20:40] VITALS: BP 125/74; PULSE 100; RESP 18; TEMP 36.6; O2SAT 98
--- NOTE | 2022-01-22 20:43 | PC.NURSE ---
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
--- NOTE | 2022-01-22 20:46 | ED.GENADULT ---
HPI - General Adult General Chief complaint: Arrhythmia/Palpitations Stated complaint: possible afib Time Seen by Provider: 01/22/22 20:35 Source: patient Mode of arrival: ambulatory Limitations: no limitations History of Present Illness HPI narrative: Patient comes to the emergency room by private vehicle from home. According to the patient and his , the patient has been coughing more than usual, feeling a bit short of breath, have generalized weakness, sleeping 12-14 hours daily for the last week. Patient's states that the patient has not had any fever, no chills, no nausea vomiting or diarrhea, patient denies abdominal or chest pain. 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 Patient's says that she is in charge of giving him his medication and make sure that he gets all his prescribed medications daily. Related Data Home Medications Medication Instructions Recorded Confirmed omeprazole 20 mg capsule,delayed 20 mg PO DAILY 02/04/20 01/09/22 release sertraline 25 mg tablet 25 mg PO DAILY 03/16/21 01/09/22 donepezil 10 mg tablet 10 mg PO BEDTIME 05/23/21 01/09/22 acetaminophen 650 mg 650 mg PO Q12H 11/28/21 01/09/22 tablet,extended release (Tylenol Arthritis Pain) ammonium lactate 12 % topical cream appl topical BID 12/07/21 01/09/22 Previous Rx's Medication Instructions Recorded amlodipine 10 mg tablet 10 mg PO DAILY #90 tabs 05/01/21 metoprolol succinate 25 mg 25 mg PO DAILY #90 tabs 05/01/21 tablet,extended release 24 hr (Toprol XL) Nystop 100,000 unit/gram topical 1 appl topical TID #60 grams 06/19/21 powder (nystatin) apixaban 5 mg tablet 5 mg PO BID 90 days #180 tabs 06/27/21 furosemide 40 mg tablet 40 mg PO DAILY 90 days #90 tabs 07/25/21 gabapentin 400 mg capsule 400 mg PO BEDTIME 30 days #30 caps 10/06/21 folic acid 1 mg tablet 1 mg PO DAILY #90 tabs 11/15/21 potassium chloride 20 mEq 40 meq PO BID 30 days #120 tabs 11/16/21 tablet,extended release allopurinol 100 mg tablet 100 mg PO DAILY #90 tabs 11/23/21 finasteride 5 mg tablet 5 mg PO DAILY 90 days #90 tabs 12/08/21 atorvastatin 40 mg tablet 40 mg PO DAILY #90 tabs 12/20/21 nitroglycerin 0.4 mg sublingual 0.4 mg sublingual Q5M PRN chest 01/11/22 tablet pain #30 tabs levofloxacin 500 mg tablet 500 mg PO DAILY #9 tabs 01/22/22 methotrexate sodium 2.5 mg tablet 20 mg PO QWEEK #96 tabs 01/22/22 Allergies Allergy/AdvReac Type Severity Reaction Status Date / Time penicillin V Allergy Intermediate hives Verified 01/09/22 14:46 Review of Systems Review of Systems: Constitutional : No Weight loss, No Fever, No Chills, No Night Sweats, complaining of fatigue, mild generalized malaise, sleeping 12-14 hours a day ENT/Mouth : No Hearing loss, No Ear Pain, No Nasal Congestion, No Sinus Pain, No Hoarseness, No sore throat, No Rhinorrhea, No Swallowing Difficulty Eyes: No Eye Pain, No Swelling, No Redness, No Foreign Body, No Discharge, No Vision Changes Cardiovascular : No Chest Pain, No SOB, No Dyspnea on Exertion, No Orthopnea, No Edema, No Palpitations Respiratory : No Cough, No Sputum, No Wheezing, No Smoke Exposure, No Dyspnea Gastrointestinal : No Nausea, No Vomiting, No Diarrhea, No Constipation, No abdominal Pain, No Hematochezia, No Melena Genitourinary : no irregular bleeding, No Dysuria, No Urinary Frequency, No Hematuria, No Urinary Incontinence, No Urgency, No Flank Pain, No Urinary Flow Changes, No Hesitancy Musculoskeletal : No joint pain, No Myalgias, No Joint Swelling Skin : No Skin Lesions, No rash Neuro : No Weakness, No Numbness, No Paresthesias, No Loss of Consciousness, No Dizziness, No Headache Psych : No Anxiety/Panic, No Depression, No SI/HI/AH/VH, No Social Issues, Heme/Lymph: No Bruising, No Bleeding,No Lymphadenopathy Endocrine : No Polyuria, No Polydipsia, No Temperature Intolerance PMFSH Past Medical History Medical History Atherosclerotic cardiovascular disease Embolic stroke Erosive osteoarthritis Essential hypertension Gout Obesity (BMI 30-39.9) JODI on CPAP Osteoarthritis PAF (paroxysmal atrial fibrillation) Prostate cancer Psoriatic arthritis Pure hypercholesterolemia Rheumatoid arthritis, unspecified Surgical History Hx of cardiac cath Hx of cholecystectomy Hx of colonoscopy Hx of eye surgery Stented coronary artery Family History Family History Father No problems noted. Mother No problems noted. Social History Social History Housing: House Alcohol intake: never Patient Tobacco Use Status: Never used Tobacco Second Hand Smoke Exposure: No Use of substances other than those prescribed or required for medical reasons: No Advance Directives: No Advance Directives Information Provided: No service: No Current occupational status: retired Physical Exam ED Vital Signs: Vital Signs - 24 hr 01/22/22 15:31 01/22/22 17:35 01/22/22 20:40 Temperature 96.8 F 97.6 F 97.9 F Pulse Rate 105 H 102 H 100 Respiratory Rate 22 H 18 18 Blood Pressure 120/50 L 132/68 125/74 Pulse Oximetry 97 98 98 Oxygen Delivery Method Room Air Room Air Room Air 01/22/22 21:34 Temperature 98.2 F Pulse Rate 56 Respiratory Rate 18 Blood Pressure 113/71 Pulse Oximetry 98 Oxygen Delivery Method Room Air BMI result Body Mass Index 36.4 Const Other: Appearance: Alert. Oriented X3. No acute distress. Eyes: Pupils equal, round and reactive to light. ENT: Pharynx normal. Neck: Normal inspection. Neck supple. No lymph nodes noted. No crepitus CVS: Normal heart rate and rhythm. Pulses normal. Normal S1 and S2 Respiratory: No respiratory distress. Breath sounds normal. No Wheezing. No rales Abdomen: Soft and nontender. No rigidity. No distention. Skin: Skin warm and dry. Normal skin color. Normal skin turgor. Extremities: No lower extremity edema. No Lacerations. No Rash Neuro: Oriented X 3. No motor deficit. No sensory deficit. Moving all extremities. No slurred speech. CN 2 through 12 grossly intact Psych: calm, cooperative, normal affect Course Course Course Narrative: All of patient's labs are pending. Other than the generalized weakness, patient has no other symptoms. Patient does have a urinary tract infection. Patient has an allergy to penicillin. Patient states that he gets very bad rash/inflammation At this time, we will not use cephalosporins. Instead we will use Levaquin. The 1st dose will be given. Emergency room Patient's troponin negative, EKG shows atrial fibrillation, rate control, heart rate 98, QTC 467. In triage, it was noted that the patient has no history of AFib. However, patient and his confirmed that he does have atrial fibrillation. Also I reviewed Dr. Vikas griffin is, patient is being treated with metoprolol and is already on Eliquis for atrial fibrillation Medical Decision Making Lab Data Result diagrams: 01/22/22 15:51 01/22/22 15:51 Labs: Lab Results 01/22/22 01/22/22 01/22/22 Range/Units 15:51 15:51 15:51 WBC 6.0 (4.8-10.8) X10*3/uL RBC 3.71 L (4.60-5.80) X10*6/uL Hgb 12.0 L (14.0-18.0) g/dl Hct 37.6 L (42.0-52.0) % MCV 101.3 H (80.0-98.0) fL MCH 32.3 (27.0-33.0) pg MCHC 31.9 (31.0-36.0) g/dl RDW 15.7 (11.0-16.0) % Plt Count 220 (160-400) X10*3/uL MPV 10.7 (9.4-12.4) fL Immature Gran % (Auto) 0.2 (0.0-0.4) % Neut % (Auto) 76.0 H (45-73) % Lymph % (Auto) 13.1 L (20-40) % [place] % (Auto) 7.7 (2-11) % Eos % (Auto) 2.2 (0-4) % Baso % (Auto) 0.8 (0-2) % Lymph # (Auto) 0.8 L (1.2-4.9) X10*3/uL [place] # (Auto) 0.5 (0.1-1.2) X10*3/uL Eos # (Auto) 0.1 (0.0-0.4) X10*3/uL Baso # (Auto) 0.1 (0.0-0.2) X10*3/uL Abs Immat Gran (auto) 0.01 (0.00-0.03) X10*3/uL Absolute Neuts (auto) 4.6 (2.0-8.3) x10*3/uL Absolute Nucleated RBC 0.000 (0.0-0.012) X10*3/uL Nucleated RBC % (auto) 0.0 (0.0-0.2) /100WBC Sodium 142 (135-145) mmol/L Potassium 5.1 (3.3-5.1) mmol/L Chloride 107 (96-108) mmol/L Carbon Dioxide 23 (22-29) mmol/L Anion Gap 17 (12-20) BUN 17 H (9-16) mg/dL Creatinine 1.01 (0.5-1.4) mg/dL Estim Creat Clear Calc 68.3 Estimated GFR > 60 Random Glucose 91 (60-115) mg/dL Calcium 8.6 (8.4-10.2) mg/dL Total Bilirubin 0.7 (0.0-1.0) mg/dL Direct Bilirubin 0.3 (0.0-0.5) mg/dL AST 21 (5-37) U/L ALT 19 (0-40) U/L Alkaline Phosphatase 99 (39-117) U/L Troponin I High Sens 10.9 (<3.5-35.0) ng/L Total Protein 6.5 (6.5-8.0) g/dL Albumin 3.9 (3.5-5.0) g/dL Lipase 57 (8-78) U/L Urine Color Urine Appearance Urine pH (5.0-9.0) Ur Specific [place] (1.005-1.025) Urine Protein (Neg-Trace) mg/dL Urine Glucose (UA) (Negative) mg/dL Urine Ketones (Negative) mg/dL Urine Blood (Negative) Urine Nitrite (Negative) Ur Leukocyte Esterase (Negative) Urine RBC (0-2) /HPF Urine WBC (0-5) /HPF Ur Squamous Epith Cells (0-2) /HPF Urine Bacteria (None Seen) Hyaline Casts (0-2) /LPF COVID-19 (DMITRY) (Negative) COVID-19 Clin Com 01/22/22 01/22/22 Range/Units 21:49 22:37 WBC (4.8-10.8) X10*3/uL RBC (4.60-5.80) X10*6/uL Hgb (14.0-18.0) g/dl Hct (42.0-52.0) % MCV (80.0-98.0) fL MCH (27.0-33.0) pg MCHC (31.0-36.0) g/dl RDW (11.0-16.0) % Plt Count (160-400) X10*3/uL MPV (9.4-12.4) fL Immature Gran % (Auto) (0.0-0.4) % Neut % (Auto) (45-73) % Lymph % (Auto) (20-40) % [place] % (Auto) (2-11) % Eos % (Auto) (0-4) % Baso % (Auto) (0-2) % Lymph # (Auto) (1.2-4.9) X10*3/uL [place] # (Auto) (0.1-1.2) X10*3/uL Eos # (Auto) (0.0-0.4) X10*3/uL Baso # (Auto) (0.0-0.2) X10*3/uL Abs Immat Gran (auto) (0.00-0.03) X10*3/uL Absolute Neuts (auto) (2.0-8.3) x10*3/uL Absolute Nucleated RBC (0.0-0.012) X10*3/uL Nucleated RBC % (auto) (0.0-0.2) /100WBC Sodium (135-145) mmol/L Potassium (3.3-5.1) mmol/L Chloride (96-108) mmol/L Carbon Dioxide (22-29) mmol/L Anion Gap (12-20) BUN (9-16) mg/dL Creatinine (0.5-1.4) mg/dL Estim Creat Clear Calc Estimated GFR Random Glucose (60-115) mg/dL Calcium (8.4-10.2) mg/dL Total Bilirubin (0.0-1.0) mg/dL Direct Bilirubin (0.0-0.5) mg/dL AST (5-37) U/L ALT (0-40) U/L Alkaline Phosphatase (39-117) U/L Troponin I High Sens (<3.5-35.0) ng/L Total Protein (6.5-8.0) g/dL Albumin (3.5-5.0) g/dL Lipase (8-78) U/L Urine Color Yellow Urine Appearance Clear Urine pH 5.5 (5.0-9.0) Ur Specific [place] 1.020 (1.005-1.025) Urine Protein Trace (Neg-Trace) mg/dL Urine Glucose (UA) Negative (Negative) mg/dL Urine Ketones Negative (Negative) mg/dL Urine Blood Negative (Negative) Urine Nitrite Negative (Negative) Ur Leukocyte Esterase Moderate (2+) H (Negative) Urine RBC 0-2 (0-2) /HPF Urine WBC 11-20 H (0-5) /HPF Ur Squamous Epith Cells 0-2 (0-2) /HPF Urine Bacteria None Seen (None Seen) Hyaline Casts 0-2 (0-2) /LPF COVID-19 (DMITRY) Negative (Negative) COVID-19 Clin Com See Note Discharge Plan Discharge Clinical Impression: Acute UTI Patient Disposition: Home, Self-Care Instructions: Urinary Tract Infection in Men (ED) Additional Instructions: Please follow-up with your primary care physician tomorrow. If you have any worsening or new symptoms, please return to the emergency room or call 911 Prescriptions: New levofloxacin 500 mg tablet 500 mg PO DAILY Qty: 9 0RF No Action furosemide 40 mg tablet 40 mg PO DAILY 90 Days Qty: 90 1RF gabapentin 400 mg capsule 400 mg PO BEDTIME 30 Days Qty: 30 6RF folic acid 1 mg tablet 1 mg PO DAILY Qty: 90 3RF potassium chloride 20 mEq tablet extended release 40 meq PO BID 30 Days Qty: 120 5RF atorvastatin 40 mg tablet 40 mg PO DAILY Qty: 90 0RF nitroglycerin 0.4 mg tablet, sublingual 0.4 mg sublingual Q5M PRN (Reason: chest pain) Qty: 30 5RF Rx Instructions: do not exceed 3 doses per episode methotrexate sodium 2.5 mg tablet 20 mg PO QWEEK Qty: 96 0RF sertraline 25 mg tablet 25 mg PO DAILY nystatin [Nystop] 100,000 unit/gram powder 1 appl topical TID Qty: 60 5RF omeprazole 20 mg capsule,delayed release(DR/EC) 20 mg PO DAILY apixaban 5 mg tablet 5 mg PO BID 90 Days Qty: 180 3RF donepezil 10 mg tablet 10 mg PO BEDTIME ammonium lactate 12 % cream topical BID finasteride 5 mg tablet 5 mg PO DAILY 90 Days Qty: 90 1RF allopurinol 100 mg tablet 100 mg PO DAILY Qty: 90 1RF metoprolol succinate [Toprol XL] 25 mg tablet extended release 24 hr 25 mg PO DAILY Qty: 90 3RF amlodipine 10 mg tablet 10 mg PO DAILY Qty: 90 3RF acetaminophen [Tylenol Arthritis Pain] 650 mg tablet extended release 650 mg PO Q12H
[2022-01-22 21:34] VITALS: BP 113/71; PULSE 56; RESP 18; TEMP 36.8; O2SAT 98
--- NOTE | 2022-01-22 21:50 | PC.NURSE ---
nasal swab performed
[2022-01-22 22:15] LABS: COVID-19 Test Negative (Negative)
[2022-01-22 22:43] LABS: Appearance Urine Clear; Color Urine Yellow; Glucose Urine UA Negative (Negative); Leukocyte Esterase Urine Moderate (2+) (Negative); Nitrite Urine Negative (Negative); PH 5.5 (5.0-9.0); UMIC TRIGGER UACC YES; Urine Blood Negative (Negative); Urine Ketones Negative (Negative); Urine Protein Trace mg/dL (Neg-Trace)
[2022-01-22 22:50] LABS: Bacteria Urine None Seen (None Seen); Hyaline Casts Urine 0-2 /LPF (0-2); RBC Urine 0-2 /HPF (0-2); Squamous Epithelial Cell Urine 0-2 /HPF (0-2); UACC Culture Trigger YES
[2022-01-22] MEDS: levoFLOXacin 500 MG TABLET PO (23:30)
== END 2022-01-22 23:40 | disposition home or self-care (01) ==
PROVIDERS: Emergency Provider Emergency Medicine; PCP Internal Medicine
DX: N39.0 Urinary tract infection, site not specified (principal); R00.2 Palpitations; R53.1 Weakness; Z20.822 Contact with and (suspected) exposure to COVID-19; I48.0 Paroxysmal atrial fibrillation; E78.00 Pure hypercholesterolemia, unspecified; E66.9 Obesity, unspecified; Z68.36 Body mass index [BMI] 36.0-36.9, adult
CPT/HCPCS: 36415; 71045; 80048; 80076; 81001; 83690; 84484; 85025; 87086; 87635; 93005; 99284; 99285

== ENCOUNTER → 2022-02-19 11:27 | Outpatient (BNVA) | payer MEDICARE, SELFPAY | PROVIDERS: PCP Internal Medicine; Referring Provider Internal Medicine; Visit Provider Internal Medicine | DX: I48.0 Paroxysmal atrial fibrillation (principal); I25.10 Atherosclerotic heart disease of native coronary artery without angina pectoris; I63.40 Cerebral infarction due to embolism of unspecified cerebral artery; I10 Essential (primary) hypertension; R60.0 Localized edema; G47.33 Obstructive sleep apnea (adult) (pediatric); Z99.89 Dependence on other enabling machines and devices | CPT/HCPCS: 99212 ==

== ENCOUNTER → 2022-02-20 10:28 | Outpatient (BNVA) | payer MEDICARE, SELFPAY | PROVIDERS: PCP Internal Medicine; Referring Provider Internal Medicine; Visit Provider Nurse Practitioner Family | DX: L40.50 Arthropathic psoriasis, unspecified (principal); M1A.00X0 Idiopathic chronic gout, unspecified site, without tophus (tophi); M54.50 Low back pain, unspecified; D64.9 Anemia, unspecified; M15.4 Erosive (osteo)arthritis; M17.0 Bilateral primary osteoarthritis of knee; I48.0 Paroxysmal atrial fibrillation; I25.10 Atherosclerotic heart disease of native coronary artery without angina pectoris; I63.40 Cerebral infarction due to embolism of unspecified cerebral artery | CPT/HCPCS: 99212 ==

== ENCOUNTER 2022-02-27 09:25 | Day surgery (SDC) | payer MEDICARE, SELFPAY ==
--- NOTE | 2022-02-26 10:12 | HO.ANESPROP2 ---
Documented by User: Asmita Manriquez NP 02/26/22 10:15 HPI - Anesthesia Eval Consult details Narrative: 82yo M for Cardioversion Eliquis for afib PMFSH Active Problems Active Problems: All Active Problems (Updated 02/20/22 @ 20:07 by Tita Brandon NP) JODI treated with BiPAP (Acute) Diarrhea (Acute) Intertrigo (Acute) Fatigue (Acute) Obesity (BMI 30-39.9) (Acute) Osteoarthritis (Acute) Pure hypercholesterolemia (Acute) Anemia (Acute) Current use of GnRH antagonist (Acute) Bilateral primary osteoarthritis of knee (Acute) Prostate cancer (Acute) Erosive osteoarthritis (Acute) Gout (Acute) Psoriatic arthritis (Acute) Obstructive sleep apnea (Acute) Stented coronary artery (Acute) JODI on CPAP (Acute) Essential hypertension (Acute) Localized edema (Acute) Embolic stroke (Acute) PAF (paroxysmal atrial fibrillation) (Acute) Atherosclerotic cardiovascular disease (Acute) Past Medical History Medical History Atherosclerotic cardiovascular disease Embolic stroke Erosive osteoarthritis Essential hypertension Gout Obesity (BMI 30-39.9) JODI on CPAP Osteoarthritis PAF (paroxysmal atrial fibrillation) Prostate cancer Psoriatic arthritis Pure hypercholesterolemia Family History Family History Father No problems noted. Mother No problems noted. Surgical History Surgical History Hx of cardiac cath Hx of cholecystectomy Hx of colonoscopy Hx of eye surgery Stented coronary artery Social History Social History Housing: House Alcohol intake: never Patient Tobacco Use Status: Never used Tobacco Second Hand Smoke Exposure: No Use of substances other than those prescribed or required for medical reasons: No Are you DNR?: No Advance Directives: No Advance Directives Information Provided: Yes service: No Current occupational status: retired Meds Allergies Allergy/AdvReac Type Severity Reaction Status Date / Time penicillin V Allergy Intermediate hives Verified 02/20/22 10:58 Home Medications Medication Instructions Recorded Confirmed Last Taken Type omeprazole 20 mg capsule,delayed 20 mg PO DAILY 02/04/20 02/19/22 Unknown History release sertraline 25 mg tablet 25 mg PO DAILY 03/16/21 02/19/22 Unknown History donepezil 10 mg tablet 10 mg PO BEDTIME 05/23/21 02/19/22 Unknown History acetaminophen 650 mg 650 mg PO Q12H 11/28/21 02/19/22 Unknown History tablet,extended release (Tylenol Arthritis Pain) ammonium lactate 12 % topical cream appl topical BID 12/07/21 02/19/22 Unknown History Exam Exam Date and Time: February 26, 2022 1012 Pertinent Lab Results Pertinent Lab Results: Laboratory Tests 01/22/22 01/22/22 15:51 15:51 WBC 6.0 Hgb 12.0 L Hct 37.6 L Plt Count 220 Sodium 142 Potassium 5.1 Chloride 107 Carbon Dioxide 23 BUN 17 H Creatinine 1.01 Narrative Narrative: EKG 01/2022 Vent. Rate : 098 BPM ? ? Atrial Rate : 000 BPM ?? P-R Int : 000 ms? QRS Dur : 132 ms ? ? QT Int : 366 ms ? ? ? P-R-T Axes : 000 -08 005 degrees ?? QTc Int : 467 ms ? Atrial fibrillation Right bundle branch block Abnormal ECG When compared with ECG of 21-SEP-2020 11:16, Atrial fibrillation has replaced Sinus rhythm Vent. rate has increased BY? 37 BPM Right bundle branch block is now Present Premature ventricular complexes are no longer Present ECHO 06/2021 Conclusions: - 1.? Normal LV systolic function with impaired relaxation ? ? ? filling pattern with elevated filling pressures with underlying? wall motion abnormality suggestive of coronary artery disease? ? 2. Mildly dilated left atrium? 3. Severe mitral calcification with mild mitral regurgitation? ? 4. Mildly dilated ascending aorta? 5.? No pericardial effusion? NM cardiolite stress test 12/2021 Impression: ? 1.? Myocardial perfusion imaging study shows nontransmural infarct of the basal inferior wall with fixed defect of the basal and mid inferolateral wall suggestive of prior [place] reversible defect of the basal and mid lateral wall are present alfa-infarct ischemia 2.? Gated LVEF is 65% 3. Transient ischemic dilatation not present ? EKG is nondiagnostic for ischemia Assessment and Plan Assessment Anesthesia Assessment: Chart Reviewed Documented by User: Isidro Alvarado MD 02/27/22 10:24 PMFSH Past Medical History Medical History Atherosclerotic cardiovascular disease Embolic stroke Erosive osteoarthritis Essential hypertension Gout Obesity (BMI 30-39.9) JODI on CPAP Osteoarthritis PAF (paroxysmal atrial fibrillation) Prostate cancer Psoriatic arthritis Pure hypercholesterolemia Family History Family History Father No problems noted. Mother No problems noted. Family history of problems with anesthesia: No Surgical History Surgical History Hx of cardiac cath Hx of cholecystectomy Hx of colonoscopy Hx of eye surgery Stented coronary artery History of Problems with Anesthesia: No Social History Social History Housing: House Alcohol intake: never Patient Tobacco Use Status: Never used Tobacco Second Hand Smoke Exposure: No Use of substances other than those prescribed or required for medical reasons: No Are you DNR?: No Advance Directives: No Advance Directives Information Provided: Yes service: No Current occupational status: retired Meds Allergies Allergy/AdvReac Type Severity Reaction Status Date / Time penicillin V Allergy Intermediate hives Verified 02/20/22 10:58 Home Medications Medication Instructions Recorded Confirmed Last Taken Type omeprazole 20 mg capsule,delayed 20 mg PO DAILY 02/04/20 02/19/22 Unknown History release sertraline 25 mg tablet 25 mg PO DAILY 03/16/21 02/19/22 Unknown History donepezil 10 mg tablet 10 mg PO BEDTIME 05/23/21 02/19/22 Unknown History acetaminophen 650 mg 650 mg PO Q12H 11/28/21 02/19/22 Unknown History tablet,extended release (Tylenol Arthritis Pain) ammonium lactate 12 % topical cream appl topical BID 12/07/21 02/19/22 Unknown History Exam Airway Mallampati Class: III TM Dist: >3cm Neck ROM: Full Denture: Upper and Lower Heart: irreg irreg s1s2 Lungs: cta b/l Assessment and Plan Assessment Anesthesia Assessment: Anesthesia Plan Discussed Final Anesthetic Review Family History of Problems with Anesthesia: No History of Problems with Anesthesia: No NPO: Yes ASA Class: III Final Preanesthetic Review: No Changes in Pt Med Stat, Meds/Allgs Chart Reviewed, Consent Obtained/Reviewed and Anes Risks/Benef Reviewed Patient Risk: Intermediate Procedure Risk: Intermediate Assessment/Block/Sedation in SS: Assess/Block/Sedation-SS Anesthetic Plan Anesthetic Plan: GA and Agree w/ Assess. and Plan Disposition: Standard PACU
[2022-02-27] VITALS (7 sets, daily range): BP systolic 115–136; BP diastolic 57–71; PULSE 61–98; RESP 16; TEMP 36.2–36.8; O2SAT 97–99; BMI 35.9
--- NOTE | 2022-02-27 11:00 | MHC.SHP ---
Pre-Procedural Eval Section A Date of Service: 02/27/22 The patient is an INPATIENT: No Section B Chief Complaint: Paroxysmal atrial fibrillation Allergies: Allergies Allergy/AdvReac Type Severity Reaction Status Date / Time penicillin V Allergy Intermediate hives Verified 02/20/22 10:58 Plan I have reviewed the history and physical and performed a pertinent physical examination on my patient. No changes have occurred unless specified.
--- NOTE | 2022-02-27 11:01 | HO.CARDIVERS ---
Cardioversion Procedure Note Cardioversion Date of Procedure: 02/27/2022 Ordering Provider: Dr. Bean Performing Provider: Dr. Bean Indication for Procedure: Atrial fibrillation, highly symptomatic. Pre-Op Diagnosis: Atrial fibrillation Post-Op Diagnosis: Sinus rhythm BYRON findings (if BYRON Performed): BYRON not performed History: See full office consult Consent: Informed consent obtained from with witness from RN. Procedure: After informed consent was obtained, patient was taken to the PACU. The patient was then positioned appropriately. The cardioversion pads were placed in anteroposterior position. Once under anesthesia, 120 joules of synchronized shock was administered. The rhythm converted from atrial fibrillation to sinus rhythm. Patient remained in sinus rhythm after the end of procedure. Complications: None. Impression: Successful cardioversion from atrial fibrillation to sinus rhythm. Recommendations: Likely start amiodarone after review of EKG.
--- NOTE | 2022-02-27 11:08 | ECG_ITS ---
Test Reason : pos op Blood Pressure : / mmHG Vent. Rate : 063 BPM Atrial Rate : 063 BPM P-R Int : 212 ms QRS Dur : 142 ms QT Int : 420 ms P-R-T Axes : 051 -01 029 degrees QTc Int : 429 ms Sinus rhythm with 1st degree A-V block Right bundle branch block Abnormal ECG When compared with ECG of 22-JAN-2022 15:39, Sinus rhythm has replaced Atrial fibrillation Vent. rate has decreased BY 35 BPM Referred By: Aden Bean Electronically Signed By:TYLER POPE MD
[2022-02-27] MEDS: Amiodarone HCL 200 MG TABLET 400 MG PO (11:29)
== END 2022-02-27 12:59 | disposition home or self-care (01) ==
PROVIDERS: PCP Internal Medicine; Visit Provider Internal Medicine
PROC: 5A2204Z Restoration of Cardiac Rhythm, Single (ICD-10-PCS; principal; 2022-02-27 11:00)
DX: I48.0 Paroxysmal atrial fibrillation (principal); I44.0 Atrioventricular block, first degree; I45.10 Unspecified right bundle-branch block; I25.10 Atherosclerotic heart disease of native coronary artery without angina pectoris; I10 Essential (primary) hypertension; G47.33 Obstructive sleep apnea (adult) (pediatric); I25.2 Old myocardial infarction; Z86.73 Personal history of transient ischemic attack (TIA), and cerebral infarction without residual deficits; Z79.01 Long term (current) use of anticoagulants; Z79.899 Other long term (current) drug therapy; Z99.89 Dependence on other enabling machines and devices
CPT/HCPCS: 92960; 93005; J0171; J0330; J2370

== ENCOUNTER → 2022-02-28 09:54 | Outpatient (BNVA) | payer MEDICARE, SELFPAY | PROVIDERS: PCP Internal Medicine; Referring Provider Internal Medicine; Visit Provider Internal Medicine | DX: R94.31 Abnormal electrocardiogram [ECG] [EKG] (principal); I45.10 Unspecified right bundle-branch block | CPT/HCPCS: 93005 ==

== ENCOUNTER → 2022-03-02 09:51 | Outpatient (REF) | payer MEDICARE, SELFPAY ==
--- NOTE | 2022-03-02 09:50 | HM_ITS ---
* Total monitoring time 2 days and 23 hours. * Underlying rhythm is sinus. Average ventricular rate 55/Min. Range 44 to 85/Min. * About 84% of the time, rate less than 60/Min. * No atrial fibrillation or flutter. * Occasional PVCs with a burden of 1.3%. * Occasional PACs. [place] of less than 1%. * No significant bradycardia or pauses. * No patient diary. MTDD
== END ==
LOC: HO.CARD 09:51
PROVIDERS: PCP Internal Medicine; Visit Provider Internal Medicine
DX: I48.0 Paroxysmal atrial fibrillation (principal); R00.2 Palpitations
CPT/HCPCS: 93242

== ENCOUNTER → 2022-03-21 14:20 | Outpatient (BNVA) | payer MEDICARE, SELFPAY | PROVIDERS: PCP Internal Medicine; Referring Provider Internal Medicine; Visit Provider Internal Medicine | DX: I48.0 Paroxysmal atrial fibrillation (principal); I25.10 Atherosclerotic heart disease of native coronary artery without angina pectoris; I10 Essential (primary) hypertension; R60.0 Localized edema; G47.33 Obstructive sleep apnea (adult) (pediatric); Z86.73 Personal history of transient ischemic attack (TIA), and cerebral infarction without residual deficits; Z79.01 Long term (current) use of anticoagulants; Z79.899 Other long term (current) drug therapy; Z99.89 Dependence on other enabling machines and devices | CPT/HCPCS: 93005; 99212 ==

== ENCOUNTER 2022-03-27 10:28 | Observation (INO) | payer MEDICARE, SELFPAY ==
[2022-03-27] VITALS (7 sets, daily range): BP systolic 103–123; BP diastolic 55–75; PULSE 77–92; RESP 10–18; TEMP 36.7; O2SAT 96–99; BMI 34.8
--- NOTE | ~2022-03-27 | CT_ITS ---
EXAMINATION: CT HEAD WITHOUT CONTRAST CLINICAL INFORMATION: Syncope after hitting head loss of consciousness COMPARISON: 09/21/2020 TECHNIQUE: Contiguous axial imaging was performed from the skull base to vertex without intravenous administration of contrast. This CT examination was performed using dose optimization techniques as appropriate, variously including the following: *Automated exposure control *Adjustment of mA and/or kV according to patient size (this includes techniques or standardized protocols for targeted exams where dose is matched to indication/reason for exam; i.e. extremities or head) *Use of iterative reconstruction technique DLP: 896 mGy-cm FINDINGS: There is prominence to the sulci and ventricles compatible with involutional change however, no evidence of intra or extra-axial fluid collection, hemorrhage, mass or mass effect. Calvarium is intact. CT/CT head/brain wo IV con IMPRESSION: No acute intracranial pathology.
--- NOTE | ~2022-03-27 | CT_ITS ---
EXAMINATION: CT CHEST, ABDOMEN AND PELVIS WITHOUT CONTRAST CLINICAL INFORMATION: Reason for Exam Fall. HIp fracture? COMPARISON: No pertinent prior studies are available for comparison. TECHNIQUE: Multidetector volumetric imaging was performed from the thoracic inlet through the pubic symphysis without IV contrast. Sagittal and coronal reformatted images were obtained on the technologist's workstation. This CT examination was performed using dose optimization techniques as appropriate, variously including the following: *Automated exposure control *Adjustment of mA and/or kV according to patient size (this includes techniques or standardized protocols for targeted exams where dose is matched to indication reason for exam; i.e. extremities or head) *Use of iterative reconstruction technique DLP: 2917 mGy-cm FINDINGS: CHEST: Lung: The lungs are clear without focal opacity or nodule. There is a new trace right pleural effusion present Mediastinum: Severe multivessel coronary calcifications. Heart size normal. Dense mitral valvular calcification. Unusual marked calcification is present near the mitral annulus. No mediastinal or hilar lymphadenopathy. No pericardial effusion. No aortic aneurysm Pericardium/Pleura: No significant effusion. No pleural mass or thickening. Chest Wall/Axilla: Unremarkable ABDOMEN/PELVIS: Peritoneal Space: No significant free air or free fluid identified. Liver, Gallbladder, Biliary Tree: Multiple surgical clips are present in the liver and the patient may be status post partial hepatectomy the gallbladder is not present. A benign simple cyst is noted in the right lobe of the liver. Pancreas: Unremarkable Spleen: Unremarkable Adrenal Glands: Unremarkable Kidneys and Ureters: The kidneys are normal in size, shape, and attenuation. Bilateral Bosniak class I and Bosniak class II renal cysts are present with one minimally complex on the left with a thin septation containing some calcium. No additional imaging or follow-up is needed. Findings are unchanged when compared to 03/30/2019. No suspicious solid masses are seen. No hydronephrosis, hydroureter, or calculi seen. No perinephric stranding. Bladder: Unremarkable Gastrointestinal Tract: The small and large bowel are unremarkable. The appendix is unremarkable. Abdominal Wall: No significant hernia is appreciated. Lymph Nodes: No lymphadenopathy. Vascular: The aorta contains calcific plaque without aneurysm.. The IVC appears unremarkable. PELVIC VISCERA: The prostate and seminal vesicles are unremarkable. OSSEUS STRUCTURES: Moderate degenerative changes are noted throughout the spine. No bony destructive lesions are seen. [id number] degenerative changes are present in the hips. No fractures. CT/CT abdomen pelvis wo IV con IMPRESSION: 1. No evidence of a traumatic injury in the chest, abdomen or pelvis. No hip or rib fractures 2. Incidental note made of new trace right pleural effusion, severe multivessel coronary calcifications, postsurgical changes in the liver, bilateral Bosniak class I and class II renal cysts which need no further imaging or follow-up, and degenerative changes in the spine. Fleischner guidelines were followed.
--- NOTE | ~2022-03-27 | CT_ITS ---
EXAMINATION: CT CERVICAL SPINE WITHOUT CONTRAST CLINICAL INFORMATION: Syncope, fall and loss of consciousness. COMPARISON: None TECHNIQUE: 3 mm thin axial and reformatted 2 mm thin sagittal and coronal images of cervical spine were obtained without contrast. This CT examination was performed using dose optimization techniques as appropriate, variously including the following: *Automated exposure control *Adjustment of mA and/or kV according to patient size (this includes techniques or standardized protocols for targeted exams where dose is matched to indication/reason for exam; i.e. extremities or head) *Use of iterative reconstruction technique DLP: 759 mGy-cm FINDINGS: There is mild straightening of cervical lordosis. The vertebral heights and alignment are normal. There is loss of C3-C4, C5-C6, C6-C7 and C7-T1 disc heights with moderate ventral spondylosis. The craniovertebral junction and the C1-C2 alignment is normal. There is no visible acute fracture, dislocation or subluxation seen. The prevertebral and paravertebral soft tissues are normal. There is mild right C2-C3, C5-C6 and C6-C7 facet joint arthropathy. There is bilateral narrowing of neural foramina C5-C6 and C6-C7 from uncovertebral hypertrophic changes. The airways widely patent. The lung apices are clear. The thyroid lobes are symmetric and normal. Visualized bilateral submandibular and parotid glands are symmetrical in density and normal. CT/CT cervical spine wo IV con IMPRESSION: Mild straightening of cervical lordosis likely spasm. Degenerative disc changes C3-C4, C5-C6, C6-C7 and C7-T1 disc levels with moderate ventral spondylosis. Fleischner guidelines were followed.
[2022-03-27 12:24] LABS: MANUAL DIFF FLAG NO
[2022-03-27 12:30] LABS: Basophils Percent Auto 0.2 % (0-2); Eosinophils Absolute Auto 0.1 X10*3/uL (0.0-0.4); Eosinophils Percent Auto 2.4 % (0-4); Hemoglobin 11.9 g/dl (14.0-18.0); Imm Gran Abs Auto 0.03 X10*3/uL (0.00-0.03); Imm Gran Pct Auto 0.5 % (0.0-0.4); Lymphocytes Absolute Auto 0.6 X10*3/uL (1.2-4.9); Lymphocytes Percent Auto 9.7 % (20-40); Mean Corpuscular HGB Conc 33.1 g/dl (31.0-36.0); Mean Corpuscular Hemoglobin 31.5 pg (27.0-33.0); Mean Corpuscular Volume 95.2 fL (80.0-98.0); Mean Platelet Volume 11.4 fL (9.4-12.4); Monocytes Absolute Auto 0.3 X10*3/uL (0.1-1.2); Monocytes Percent Auto 5.5 % (2-11); Neutrophils Absolute Auto 4.8 x10*3/uL (2.0-8.3); Neutrophils Percent Auto 81.7 % (45-73); Platelet Count 167 X10*3/uL (160-400); Red Blood Count 3.78 X10*6/uL (4.60-5.80); White Blood Count 5.9 X10*3/uL (4.8-10.8)
--- NOTE | 2022-03-27 12:58 | ED_ITS ---
HPI - General Adult General Chief complaint: General Medical Stated complaint: Stroke Time Seen by Provider: 03/27/22 12:10 Source: patient Mode of arrival: ambulatory Limitations: no limitations History of Present Illness HPI narrative: 82-year-old male history of early dementia, hypertension, obstructive sleep ap shamar, proximal atrial fibrillation, presents to ED for 2 syncopal episodes. states patient had 2 syncopal episodes yesterday and had remember what happened. states she found patient on the left side of his body. She states since then patient has been at her baseline per 1 patient to be evaluated. Patient denies having any headache, chest pain, shortness of breath, or dizziness before passing out. Patient has right scalp bruise. Patient states right hip pain Related Data Home Medications Medication Instructions Recorded Confirmed omeprazole 20 mg capsule,delayed 20 mg PO DAILY 02/04/20 03/21/22 release sertraline 25 mg tablet 25 mg PO DAILY 03/16/21 03/21/22 donepezil 10 mg tablet 10 mg PO BEDTIME 05/23/21 03/21/22 acetaminophen 650 mg 650 mg PO Q12H 11/28/21 03/21/22 tablet,extended release (Tylenol Arthritis Pain) ammonium lactate 12 % topical cream appl topical BID 12/07/21 03/21/22 Previous Rx's Medication Instructions Recorded Nystop 100,000 unit/gram topical 1 appl topical TID #60 grams 06/19/21 powder (nystatin) apixaban 5 mg tablet 5 mg PO BID 90 days #180 tabs 06/27/21 furosemide 40 mg tablet 40 mg PO DAILY 90 days #90 tabs 07/25/21 gabapentin 400 mg capsule 400 mg PO BEDTIME 30 days #30 caps 10/06/21 folic acid 1 mg tablet 1 mg PO DAILY #90 tabs 11/15/21 potassium chloride 20 mEq 40 meq PO BID 30 days #120 tabs 11/16/21 tablet,extended release allopurinol 100 mg tablet 100 mg PO DAILY #90 tabs 11/23/21 finasteride 5 mg tablet 5 mg PO DAILY 90 days #90 tabs 12/08/21 atorvastatin 40 mg tablet 40 mg PO DAILY #90 tabs 12/20/21 nitroglycerin 0.4 mg sublingual 0.4 mg sublingual Q5M PRN chest 01/11/22 tablet pain #30 tabs methotrexate sodium 2.5 mg tablet 20 mg PO QWEEK #96 tabs 01/22/22 amiodarone 200 mg tablet 200 mg PO DAILY #90 tabs 02/27/22 metoprolol succinate 50 mg 50 mg PO DAILY #90 tabs 02/27/22 tablet,extended release 24 hr (Toprol XL) amlodipine 10 mg tablet 10 mg PO DAILY #90 tabs 03/12/22 Allergies Allergy/AdvReac Type Severity Reaction Status Date / Time penicillin V Allergy Intermediate hives Verified 03/21/22 15:00 Review of Systems Review of Systems: Syncpicole episode Yes all other systems are reviewed and are negative [facility] Past Medical History Medical History Atherosclerotic cardiovascular disease Embolic stroke Erosive osteoarthritis Essential hypertension Gout Obesity (BMI 30-39.9) JODI on CPAP Osteoarthritis PAF (paroxysmal atrial fibrillation) Prostate cancer Psoriatic arthritis Pure hypercholesterolemia Surgical History Hx of cardiac cath Hx of cholecystectomy Hx of colonoscopy Hx of eye surgery Stented coronary artery Family History Family History Father No problems noted. Mother No problems noted. Social History Social History Housing: House Alcohol intake: never Patient Tobacco Use Status: Never used Tobacco Smoked in Last 30 Days: No Second Hand Smoke Exposure: No Use of substances other than those prescribed or required for medical reasons: No Advance Directives: No Advance Directives Information Provided: Yes service: No Current occupational status: retired Physical Exam ED Vital Signs: Vital Signs - 24 hr 03/27/22 10:33 03/27/22 10:49 03/27/22 13:14 Temperature 98.0 F Pulse Rate 83 79 78 Respiratory Rate 18 14 Blood Pressure 123/75 117/63 107/61 Pulse Oximetry 96 98 Oxygen Delivery Method Room Air Room Air 03/27/22 13:15 03/27/22 13:17 03/27/22 16:00 Temperature Pulse Rate 80 88 77 Respiratory Rate 10 L Blood Pressure 114/65 103/55 L 121/71 Pulse Oximetry 99 Oxygen Delivery Method Room Air BMI result Body Mass Index 34.8 Const General: cooperative, healthy appearing, comfortable, no acute distress, well developed, alert, awake and Physically active Orientation/consciousness: oriented to person, oriented to place, oriented to time and patient oriented x3 [facility] Head: Yes normal to inspection, Yes No palpable skull fracture present, Yes normocephalic and Yes abrasion Head images: 1. Positive for area of ecchymosis. Negative for any tenderness or crepitus. Eyes General: appearance normal, both eyes and all related structures Neck Neck: Yes normal visual inspection, Yes full ROM, Yes no lymphadenopathy, Yes no meningeal signs, Yes trachea midline, Yes supple, No anterior neck swelling and No tender Chest Chest palpation & inspection: normal inspection of the chest and normal palpation of entire chest wall Resp Effort & Inspection: normal respiratory effort and able to speak in complete sentences Auscultation: clear to auscultation bilaterally Cardio Jugular venous distension: no JVD Heart sounds: S1 normal heart sound present and S2 normal heart sound present GI Inspection: Yes normal to inspection and No abdominal wall ecchymosis Palpation (GI): Soft to palpation, not firm, nontender, no guarding and not rigid General: No CVA tenderness and Yes no CVA tenderness Back/Spine/Pelvis Back: no CVA tenderness, No CVA tenderness and No back tenderness Skin General skin exam: no rashes or lesions noted and elasticity normal Neuro Other: Negative for any neuro deficits. Negative facial droop. Negative slurred speech. Negative pronator drift. All extremities equal strength 5+. [id number] rapid eye movement intact. Negative Romberg General: oriented to person, oriented to place, oriented to time, patient oriented x3, gait normal, tone normal, moves all extremities, Normal light touch and pain sensation, no meningeal signs, no focal motor deficits, CN's II-XI intact bilaterally and normal sensation to monofilament Extrem General: Yes normal to inspection and Yes full ROM Psych Appearance: grossly normal, well kempt and not disheveled Course Course Course Narrative: Patient alert oriented x3. Patient in any distress. Due to 2 syncopal episodes will do cardiac/medical evaluation. Patient altered Reevaluation(s) Reevaluation #1: Case discussed with hospitalist for admission for syncope. Waiting for CT scan imaging results. EKG and troponin negative. EKG negative for STEMI. Orthostatics negative. Labs show for normal in at baseline. EKG sinus rhythm first-degree AV block. VT interval of 212. QRS 142. QTC 429. Negative STEMI. Case signed out to ADAN Murphy for admission for syncopal images are normal. Already spoke with Dr. Saldivar hospitalist regarding this case. Once again patient syncopized twice. Negative for any neuro deficits. Time: 18:43 Medications Administered Discontinued Medications Generic Name Dose Route Start Last Admin Trade Name Freq PRN Reason Stop Dose Admin Sodium Chloride 1,000 mls @ 999 mls/hr 03/27/22 12:48 03/27/22 17:32 Ns IV 03/27/22 13:48 Infused .Q1H1M STA Infusion Medical Decision Making Lab Data Result Diagrams: 03/27/22 11:55 03/27/22 14:34 Labs: Lab Results 03/27/22 03/27/22 03/27/22 Range/Units 11:55 12:31 12:31 WBC 5.9 (4.8-10.8) X10*3/uL RBC 3.78 L (4.60-5.80) X10*6/uL Hgb 11.9 L (14.0-18.0) g/dl Hct 36.0 L (42.0-52.0) % MCV 95.2 (80.0-98.0) fL MCH 31.5 (27.0-33.0) pg MCHC 33.1 (31.0-36.0) g/dl RDW 17.0 H (11.0-16.0) % Plt Count 167 (160-400) X10*3/uL MPV 11.4 (9.4-12.4) fL Immature Gran % (Auto) 0.5 H (0.0-0.4) % Neut % (Auto) 81.7 H (45-73) % Lymph % (Auto) 9.7 L (20-40) % Hardin % (Auto) 5.5 (2-11) % Eos % (Auto) 2.4 (0-4) % Baso % (Auto) 0.2 (0-2) % Lymph # (Auto) 0.6 L (1.2-4.9) X10*3/uL Hardin # (Auto) 0.3 (0.1-1.2) X10*3/uL Eos # (Auto) 0.1 (0.0-0.4) X10*3/uL Baso # (Auto) 0.0 (0.0-0.2) X10*3/uL Abs Immat Gran (auto) 0.03 (0.00-0.03) X10*3/uL Absolute Neuts (auto) 4.8 (2.0-8.3) x10*3/uL Absolute Nucleated RBC 0.000 (0.0-0.012) X10*3/uL Nucleated RBC % (auto) 0.0 (0.0-0.2) /100WBC PT 19.4 H (10.0-13.1) SEC INR 1.7 H (0.9-1.1) APTT 32.3 (26.0-36.4) SEC Sodium (135-145) mmol/L Potassium (3.3-5.1) mmol/L Chloride (96-108) mmol/L Carbon Dioxide (22-29) mmol/L Anion Gap (12-20) BUN (9-16) mg/dL Creatinine (0.5-1.4) mg/dL Estim Creat Clear Calc Estimated GFR Random Glucose (60-115) mg/dL Calcium (8.4-10.2) mg/dL Magnesium (1.6-2.6) mg/dL Total Bilirubin (0.0-1.0) mg/dL AST (5-37) U/L ALT (0-40) U/L Alkaline Phosphatase (39-117) U/L Troponin I High Sens 11.1 (<3.5-35.0) ng/L Total Protein (6.5-8.0) g/dL Albumin (3.5-5.0) g/dL Urine Color Urine Appearance Urine pH (5.0-9.0) Ur Specific [place] (1.005-1.025) Urine Protein (Neg-Trace) mg/dL Urine Glucose (UA) (Negative) mg/dL Urine Ketones (Negative) mg/dL Urine Blood (Negative) Urine Nitrite (Negative) Ur Leukocyte Esterase (Negative) Urine RBC (0-2) /HPF Urine WBC (0-5) /HPF Ur Squamous Epith Cells (0-2) /HPF Urine Bacteria (None Seen) Hyaline Casts (0-2) /LPF 03/27/22 03/27/22 03/27/22 Range/Units 13:05 13:35 14:34 WBC (4.8-10.8) X10*3/uL RBC (4.60-5.80) X10*6/uL Hgb (14.0-18.0) g/dl Hct (42.0-52.0) % MCV (80.0-98.0) fL MCH (27.0-33.0) pg MCHC (31.0-36.0) g/dl RDW (11.0-16.0) % Plt Count (160-400) X10*3/uL MPV (9.4-12.4) fL Immature Gran % (Auto) (0.0-0.4) % Neut % (Auto) (45-73) % Lymph % (Auto) (20-40) % Hardin % (Auto) (2-11) % Eos % (Auto) (0-4) % Baso % (Auto) (0-2) % Lymph # (Auto) (1.2-4.9) X10*3/uL Hardin # (Auto) (0.1-1.2) X10*3/uL Eos # (Auto) (0.0-0.4) X10*3/uL Baso # (Auto) (0.0-0.2) X10*3/uL Abs Immat Gran (auto) (0.00-0.03) X10*3/uL Absolute Neuts (auto) (2.0-8.3) x10*3/uL Absolute Nucleated RBC (0.0-0.012) X10*3/uL Nucleated RBC % (auto) (0.0-0.2) /100WBC PT (10.0-13.1) SEC INR (0.9-1.1) APTT (26.0-36.4) SEC Sodium 140 (135-145) mmol/L Potassium 4.3 (3.3-5.1) mmol/L Chloride 105 (96-108) mmol/L Carbon Dioxide 28 (22-29) mmol/L Anion Gap 11 L (12-20) BUN 20 H (9-16) mg/dL Creatinine 0.93 (0.5-1.4) mg/dL Estim Creat Clear Calc 71.2 Estimated GFR > 60 Random Glucose 84 (60-115) mg/dL Calcium 8.0 L D (8.4-10.2) mg/dL Magnesium 2.2 (1.6-2.6) mg/dL Total Bilirubin 1.0 (0.0-1.0) mg/dL AST 27 (5-37) U/L ALT 38 (0-40) U/L Alkaline Phosphatase 84 (39-117) U/L Troponin I High Sens (<3.5-35.0) ng/L Total Protein 5.6 L (6.5-8.0) g/dL Albumin 3.6 (3.5-5.0) g/dL Urine Color Yellow Urine Appearance Clear Urine pH 6.0 (5.0-9.0) Ur Specific [place] 1.010 (1.005-1.025) Urine Protein Negative (Neg-Trace) mg/dL Urine Glucose (UA) Negative (Negative) mg/dL Urine Ketones Negative (Negative) mg/dL Urine Blood Negative (Negative) Urine Nitrite Negative (Negative) Ur Leukocyte Esterase Small (1+) H (Negative) Urine RBC 0-2 (0-2) /HPF Urine WBC 0-5 (0-5) /HPF Ur Squamous Epith Cells 0-2 (0-2) /HPF Urine Bacteria None Seen (None Seen) Hyaline Casts 0-2 (0-2) /LPF 03/27/22 Range/Units 16:48 WBC (4.8-10.8) X10*3/uL RBC (4.60-5.80) X10*6/uL Hgb (14.0-18.0) g/dl Hct (42.0-52.0) % MCV (80.0-98.0) fL MCH (27.0-33.0) pg MCHC (31.0-36.0) g/dl RDW (11.0-16.0) % Plt Count (160-400) X10*3/uL MPV (9.4-12.4) fL Immature Gran % (Auto) (0.0-0.4) % Neut % (Auto) (45-73) % Lymph % (Auto) (20-40) % Hardin % (Auto) (2-11) % Eos % (Auto) (0-4) % Baso % (Auto) (0-2) % Lymph # (Auto) (1.2-4.9) X10*3/uL Hardin # (Auto) (0.1-1.2) X10*3/uL Eos # (Auto) (0.0-0.4) X10*3/uL Baso # (Auto) (0.0-0.2) X10*3/uL Abs Immat Gran (auto) (0.00-0.03) X10*3/uL Absolute Neuts (auto) (2.0-8.3) x10*3/uL Absolute Nucleated RBC (0.0-0.012) X10*3/uL Nucleated RBC % (auto) (0.0-0.2) /100WBC PT (10.0-13.1) SEC INR (0.9-1.1) APTT (26.0-36.4) SEC Sodium (135-145) mmol/L Potassium (3.3-5.1) mmol/L Chloride (96-108) mmol/L Carbon Dioxide (22-29) mmol/L Anion Gap (12-20) BUN (9-16) mg/dL Creatinine (0.5-1.4) mg/dL Estim Creat Clear Calc Estimated GFR Random Glucose (60-115) mg/dL Calcium (8.4-10.2) mg/dL Magnesium (1.6-2.6) mg/dL Total Bilirubin (0.0-1.0) mg/dL AST (5-37) U/L ALT (0-40) U/L Alkaline Phosphatase (39-117) U/L Troponin I High Sens 11.6 (<3.5-35.0) ng/L Total Protein (6.5-8.0) g/dL Albumin (3.5-5.0) g/dL Urine Color Urine Appearance Urine pH (5.0-9.0) Ur Specific [place] (1.005-1.025) Urine Protein (Neg-Trace) mg/dL Urine Glucose (UA) (Negative) mg/dL Urine Ketones (Negative) mg/dL Urine Blood (Negative) Urine Nitrite (Negative) Ur Leukocyte Esterase (Negative) Urine RBC (0-2) /HPF Urine WBC (0-5) /HPF Ur Squamous Epith Cells (0-2) /HPF Urine Bacteria (None Seen) Hyaline Casts (0-2) /LPF Discharge Plan Discharge Clinical Impression: Syncope Patient Disposition: Still a Patient Prescriptions: No Action furosemide 40 mg tablet 40 mg PO DAILY 90 Days Qty: 90 1RF gabapentin 400 mg capsule 400 mg PO BEDTIME 30 Days Qty: 30 6RF folic acid 1 mg tablet 1 mg PO DAILY Qty: 90 3RF potassium chloride 20 mEq tablet extended release 40 meq PO BID 30 Days Qty: 120 5RF atorvastatin 40 mg tablet 40 mg PO DAILY Qty: 90 0RF nitroglycerin 0.4 mg tablet, sublingual 0.4 mg sublingual Q5M PRN (Reason: chest pain) Qty: 30 5RF Rx Instructions: do not exceed 3 doses per episode methotrexate sodium 2.5 mg tablet 20 mg PO QWEEK Qty: 96 0RF amlodipine 10 mg tablet 10 mg PO DAILY Qty: 90 2RF amiodarone 200 mg tablet 200 mg PO DAILY Qty: 90 3RF metoprolol succinate [Toprol XL] 50 mg tablet extended release 24 hr 50 mg PO DAILY Qty: 90 3RF sertraline 25 mg tablet 25 mg PO DAILY nystatin [Nystop] 100,000 unit/gram powder 1 appl topical TID Qty: 60 5RF omeprazole 20 mg capsule,delayed release(DR/EC) 20 mg PO DAILY apixaban 5 mg tablet 5 mg PO BID 90 Days Qty: 180 3RF donepezil 10 mg tablet 10 mg PO BEDTIME ammonium lactate 12 % cream topical BID finasteride 5 mg tablet 5 mg PO DAILY 90 Days Qty: 90 1RF allopurinol 100 mg tablet 100 mg PO DAILY Qty: 90 1RF acetaminophen [Tylenol Arthritis Pain] 650 mg tablet extended release 650 mg PO Q12H
[2022-03-27] MEDS: 0.9 % Sodium Chloride 1,000 ML 999 ML IV (13:14)
[2022-03-27 13:33] LABS: INTERNATIONAL NORM RATIO 1.7 (0.9-1.1); Prothrombin Time 19.4 SEC (10.0-13.1)
[2022-03-27 13:36] LABS: Magnesium 2.2 mg/dL (1.6-2.6)
[2022-03-27 13:36] LABS: Partial Thromboplastin Time 32.3 SEC (26.0-36.4)
[2022-03-27 13:46] LABS: Troponin-I High Sensitivity 11.1 ng/L (<3.5-35.0)
[2022-03-27 13:49] LABS: Appearance Urine Clear; Color Urine Yellow; Glucose Urine UA Negative (Negative); Leukocyte Esterase Urine Small (1+) (Negative); Nitrite Urine Negative (Negative); UMIC TRIGGER UACC YES; Urine Blood Negative (Negative); Urine Ketones Negative (Negative); Urine Protein Negative (Neg-Trace)
[2022-03-27 14:01] LABS: Bacteria Urine None Seen (None Seen); Hyaline Casts Urine 0-2 /LPF (0-2); RBC Urine 0-2 /HPF (0-2); Squamous Epithelial Cell Urine 0-2 /HPF (0-2); UACC Culture Trigger YES; WBC Urine 0-5 /HPF (0-5)
[2022-03-27 15:11] LABS: Alanine Aminotransferase 38 U/L (0-40); Albumin Level 3.6 g/dL (3.5-5.0); Alkaline Phosphatase 84 U/L (39-117); Anion Gap 11 (12-20); Aspartate Amino Transferase 27 U/L (5-37); Blood Urea Nitrogen 20 mg/dL (9-16); Carbon Dioxide 28 mmol/L (22-29); Chloride 105 mmol/L (96-108); Creatinine Clr Calc Pharmacy 71.2; Estimated Glomerular Filt Rate > 60; Glucose Random 84 mg/dL (60-115); Potassium 4.3 mmol/L (3.3-5.1); Sodium 140 mmol/L (135-145); Total Protein 5.6 g/dL (6.5-8.0)
[2022-03-27 17:21] LABS: Troponin-I High Sensitivity 11.6 ng/L (<3.5-35.0)
[2022-03-27 18:40] LABS: Influenza A PCR NEGATIVE (Negative); Influenza B PCR NEGATIVE (Negative); Resp Syncy Virus RNA Qual PCR NEGATIVE (Negative); SARS COV2 PCR INHOUSE NEGATIVE (Negative)
--- NOTE | 2022-03-27 20:40 | PHA.MEDREC ---
Pharmacy Consult ? Medication Reconciliation Pharmacy has completed the medication reconciliation. Called patient's (Adali - [phone]) and confirmed medications.
--- NOTE | 2022-03-27 21:28 | PM.IMHP ---
History of Present Illness Date of Service: 03/27/22 Chief Complaint: syncope 82M PMH CAD, Pafib, dementia, hld, htn, gout, JODI, chronic diastolic chf, presented with syncope. patient does not remember event. he states he was at home walking and next thing he remembers he was on the floor having hit his head. was witnessed by , states patient fell to left side, was only out for several seconds. denies any symptoms prior or after. patient had 2 episodes on day ptp. Review of Systems Review of Systems: Constitutional: Denies fever, denies Chills Eyes: denies blurry vision ENT: denies sore throat CVS: denies chest pain Respiratory: Denies dyspnea GI: no abdominal pain : denies dysuria MSK: denies neck pain Skin: denies rash Neuro: denies specific motor weakness Psych: denies suicidal ideation Endocrine: denies heat/cold intolerance Hematologic: denies easy bleeding Allergy: denies hives PMF Medical History Atherosclerotic cardiovascular disease Embolic stroke Erosive osteoarthritis Essential hypertension Gout Obesity (BMI 30-39.9) JODI on CPAP Osteoarthritis PAF (paroxysmal atrial fibrillation) Prostate cancer Psoriatic arthritis Pure hypercholesterolemia Family History Father No problems noted. Mother No problems noted. Surgical History Hx of cardiac cath Hx of cholecystectomy Hx of colonoscopy Hx of eye surgery Stented coronary artery Social History Housing: House Alcohol intake: never Patient Tobacco Use Status: Never used Tobacco Smoked in Last 30 Days: No Second Hand Smoke Exposure: No Use of substances other than those prescribed or required for medical reasons: No Advance Directives: No Advance Directives Information Provided: Yes service: No Current occupational status: retired Meds Allergies Allergy/AdvReac Type Severity Reaction Status Date / Time penicillin V Allergy Intermediate hives Verified 03/21/22 15:00 Active Medications: Current Medications Allopurinol (Allopurinol 100 Mg Tablet) 100 mg PO DAILY RAÚL Amiodarone HCl (Amiodarone Hcl 200 Mg Tablet) 200 mg PO DAILY RAÚL Amlodipine Besylate (Amlodipine Besylate 5 Mg Tablet) 5 mg PO DAILY [facility]; Protocol Apixaban (Apixaban 5 Mg Tablet) 5 mg PO BID [facility] Ascorbic Acid (Ascorbic Acid 500 Mg Tablet) 500 mg PO DAILY [facility] Atorvastatin Calcium (Atorvastatin Calcium 40 Mg Tablet) 40 mg PO BEDTIME [facility] Cyanocobalamin (Cyanocobalamin (Vitamin B-12) 1,000 Mcg Tablet) 1,000 mcg PO DAILY [facility] Finasteride (Finasteride 5 Mg Tablet) 5 mg PO DAILY@1200 [facility] Folic Acid (Folic Acid 1 Mg Tablet) 1 mg PO DAILY [facility] Furosemide (Furosemide 40 Mg Tablet) 40 mg PO DAILY [facility]; Protocol Gabapentin (Gabapentin 400 Mg Capsule) 400 mg PO BEDTIME [facility] Metoprolol Succinate (Metoprolol Succinate Er 50 Mg Tab.Er.24h) 50 mg PO DAILY [facility]; Protocol Multivitamins/Vitamin C (Multivitamin Tablet) 1 tab PO DAILY [facility] Nitroglycerin (Nitroglycerin 0.4 Mg Tab.Subl) 0.4 mg SUBLINGUAL Q5M PRN PRN Reason: chest pain Non-Formulary Medication ([place] 7-Aym-Gdc-Fish Oil [Fish Oil]) 1 cap PO BEDTIME [facility] Non-Formulary Medication (Vitamin E) 90 mg PO DAILY [facility] Omeprazole (Omeprazole 20 Mg Capsule.Dr) 20 mg PO DAILY@0630 [facility] Pharmacy Consult (Consult Rx Perform Med Rec) 1 each MISCELLANE ONCE PRN PRN Reason: Consult order Sertraline HCl (Sertraline Hcl 25 Mg Tablet) 25 mg PO DAILY [facility] Sodium Chloride (0.9 % Sodium Chloride Flush 3 Ml Syringe) 3 ml IVFLUSH QSHIFT [facility] Vitamin D (Cholecalciferol (Vitamin D3) 25 Mcg Tablet) 25 mcg PO DAILY [facility] Home Medications Medication Instructions Recorded Confirmed Last Taken Type omeprazole 20 mg capsule,delayed 20 mg PO DAILY@0630 02/04/20 03/27/22 03/27/22 History release sertraline 25 mg tablet 25 mg PO DAILY 03/16/21 03/27/22 03/27/22 History donepezil 10 mg tablet 10 mg PO BEDTIME 05/23/21 03/27/22 03/26/22 History amlodipine 5 mg tablet 5 mg PO DAILY 03/27/22 03/27/22 03/27/22 History ascorbic acid (vitamin C) 500 mg 500 mg PO DAILY 03/27/22 03/27/2222 History tablet (Vitamin C) atorvastatin 40 mg tablet 40 mg PO BEDTIME 03/27/22 03/27/22 03/26/22 History cholecalciferol (vitamin D3) 25 25 mcg PO DAILY 03/27/22 03/27/22 03/27/22 History mcg (1,000 unit) tablet (Vitamin D3) cyanocobalamin (vitamin B-12) 1,000 mcg PO DAILY 03/27/22 03/27/22 03/27/22 History 1,000 mcg tablet finasteride 5 mg tablet 5 mg PO DAILY@1200 03/27/22 03/27/22 03/26/22 History methotrexate sodium 2.5 mg tablet 4 tab PO CHARLES@0900,2100 03/27/22 03/27/22 03/25/22 History multivitamin 1 tab PO DAILY 03/27/22 03/27/22 03/27/22 History nystatin 100,000 unit/gram topical 1 appl topical TID PRN Rash 03/27/22 03/27/22 Unknown History powder (Nystop) nystatin-triamcinolone 100,000 1 appl topical BID PRN Rash 03/27/22 03/27/22 Unknown History unit/gram-0.1 % topical ointment omega-3 360 up-pyq-uhb-fish oil 1 cap PO BEDTIME 03/27/22 03/27/22 03/26/22 History 1,200 mg capsule,delayed release (Fish Oil) vitamin E 200 unit tablet 90 mg PO DAILY 03/27/22 03/27/22 03/27/22 History Physical Exam Vital Signs and Narrative: Vital Signs: Last Vital Signs Temp 98.0 F 03/27/22 10:33 Pulse 77 03/27/22 16:00 Resp 10 L 03/27/22 16:00 BP 121/71 03/27/22 16:00 Pulse Ox 99 03/27/22 16:00 O2 Del Method 03/27/22 16:00 BMI result Body Mass Index 34.8 General: no acute distress HEENT: small abrasian over right eye Neck: normal to visual inspection CVS: S1, S2, irregular Resp: CTA bilateral Chest: non tender GI: soft, non tender, non distended : no CVA tenderness Skin: no rashes Extremities: no edema Neuro: Oriented X3, grossly intact Psych: cooperative Results Labs CBC and Chem 7: 03/27/22 11:55 03/27/22 14:34 Labs: Laboratory Results - last 24 hr 03/27/22 03/27/22 03/27/22 11:55 12:31 12:31 MCV 95.2 MCH 31.5 MCHC 33.1 RDW 17.0 H Plt Count 167 MPV 11.4 Immature Gran % (Auto) 0.5 H Neut % (Auto) 81.7 H Lymph % (Auto) 9.7 L Mc[place]ff[place] % (Auto) 5.5 Eos % (Auto) 2.4 Baso % (Auto) 0.2 Lymph # (Auto) 0.6 L [place] # (Auto) 0.3 Eos # (Auto) 0.1 Baso # (Auto) 0.0 Abs Immat Gran (auto) 0.03 Absolute Neuts (auto) 4.8 Absolute Nucleated RBC 0.000 Nucleated RBC % (auto) 0.0 PT 19.4 H INR 1.7 H APTT 32.3 Anion Gap Estim Creat Clear Calc Estimated GFR Random Glucose Calcium Magnesium Total Bilirubin AST ALT Alkaline Phosphatase Troponin I High Sens 11.1 Total Protein Albumin Urine Color Urine Appearance Urine pH Ur Specific [place] Urine Protein Urine Glucose (UA) Urine Ketones Urine Blood Urine Nitrite Ur Leukocyte Esterase Urine RBC Urine WBC Ur Squamous Epith Cells Urine Bacteria Hyaline Casts Influenza Type A (PCR) Influenza Type B (PCR) RSV RNA Qual (PCR) SARS-CoV-2 RNA (RT-PCR) 03/27/22 03/27/22 03/27/22 13:05 13:35 14:34 MCV MCH MCHC RDW Plt Count MPV Immature Gran % (Auto) Neut % (Auto) Lymph % (Auto) [place] % (Auto) Eos % (Auto) Baso % (Auto) Lymph # (Auto) [place] # (Auto) Eos # (Auto) Baso # (Auto) Abs Immat Gran (auto) Absolute Neuts (auto) Absolute Nucleated RBC Nucleated RBC % (auto) PT INR APTT Anion Gap 11 L Estim Creat Clear Calc 71.2 Estimated GFR > 60 Random Glucose 84 Calcium 8.0 L D Magnesium 2.2 Total Bilirubin 1.0 AST 27 ALT 38 Alkaline Phosphatase 84 Troponin I High Sens Total Protein 5.6 L Albumin 3.6 Urine Color Yellow Urine Appearance Clear Urine pH 6.0 Ur Specific [place] 1.010 Urine Protein Negative Urine Glucose (UA) Negative Urine Ketones Negative Urine Blood Negative Urine Nitrite Negative Ur Leukocyte Esterase Small (1+) H Urine RBC 0-2 Urine WBC 0-5 Ur Squamous Epith Cells 0-2 Urine Bacteria None Seen Hyaline Casts 0-2 Influenza Type A (PCR) Influenza Type B (PCR) RSV RNA Qual (PCR) SARS-CoV-2 RNA (RT-PCR) 03/27/22 03/27/22 16:48 17:44 MCV MCH MCHC RDW Plt Count MPV Immature Gran % (Auto) Neut % (Auto) Lymph % (Auto) [place] % (Auto) Eos % (Auto) Baso % (Auto) Lymph # (Auto) [place] # (Auto) Eos # (Auto) Baso # (Auto) Abs Immat Gran (auto) Absolute Neuts (auto) Absolute Nucleated RBC Nucleated RBC % (auto) PT INR APTT Anion Gap Estim Creat Clear Calc Estimated GFR Random Glucose Calcium Magnesium Total Bilirubin AST ALT Alkaline Phosphatase Troponin I High Sens 11.6 Total Protein Albumin Urine Color Urine Appearance Urine pH Ur Specific [place] Urine Protein Urine Glucose (UA) Urine Ketones Urine Blood Urine Nitrite Ur Leukocyte Esterase Urine RBC Urine WBC Ur Squamous Epith Cells Urine Bacteria Hyaline Casts Influenza Type A (PCR) NEGATIVE Influenza Type B (PCR) NEGATIVE RSV RNA Qual (PCR) NEGATIVE SARS-CoV-2 RNA (RT-PCR) NEGATIVE Imaging Radiologist's Impressions: Impressions Cervical Spine CT 03/27/22 16:10 IMPRESSION: Mild straightening of cervical lordosis likely spasm. Degenerative disc changes C3-C4, C5-C6, C6-C7 and C7-T1 disc levels with moderate ventral spondylosis. Fleischner guidelines were followed. Head CT 03/27/22 16:10 IMPRESSION: No acute intracranial pathology. Abdomen/Pelvis CT 03/27/22 16:15 IMPRESSION: 1. No evidence of a traumatic injury in the chest, abdomen or pelvis. No hip or rib fractures 2. Incidental note made of new trace right pleural effusion, severe multivessel coronary calcifications, postsurgical changes in the liver, bilateral Bosniak class I and class II renal cysts which need no further imaging or follow-up, and degenerative changes in the spine. Fleischner guidelines were followed. Chest CT 03/27/22 16:15 IMPRESSION: 1. No evidence of a traumatic injury in the chest, abdomen or pelvis. No hip or rib fractures 2. Incidental note made of new trace right pleural effusion, severe multivessel coronary calcifications, postsurgical changes in the liver, bilateral Bosniak class I and class II renal cysts which need no further imaging or follow-up, and degenerative changes in the spine. Fleischner guidelines were followed. Assessment and Plan (1) Syncope: Status: Acute Plan 82M PMH CAD, Pafib, dementia, hld, htn, gout, JODI, chronic diastolic chf presented with syncope syncope concerning for cardiac arhythmia tele, cardio eval CAD eliquis, statin paroxysmal afib amio, eliquis metoprolol htn amldoipine toprol hld statin gout allopurinol chornic diastolic chf lasix dvt prophyalxis - on eliquis full code Time Spent With Patient Time: Total time managing care of this patient today ____ minutes. Quality Stroke Does the patient have a stroke diagnosis?: No VTE Prior VTE?: No VTE Risk Level:: Medical - moderate - high VTE Device Contraindication: Treatment Not Indicated VTE Drug Contraindication: N/A - Med Ordered
[2022-03-27] MEDS: Atorvastatin Calcium 40 MG TABLET PO (22:38)
[2022-03-27] MEDS: Apixaban 5 MG TABLET PO (22:38)
[2022-03-27] MEDS: Gabapentin 400 MG CAPSULE PO (22:38)
--- NOTE | 2022-03-27 23:06 | PC.NURSE ---
Pt. restless in room, up and down out of bed. Encouraged pt. to remain in bed and try and get some rest. Pt. reports it being difficult to be here without his present. Pt. now lying in bed resting quietly.
[2022-03-28] VITALS (10 sets, daily range): BP systolic 98–147; BP diastolic 57–107; PULSE 50–92; RESP 11–16; TEMP 36.4–36.7; O2SAT 95–99
[2022-03-28] MEDS: 0.9 % Sodium Chloride Flush 3 ML SYRINGE IVFLUSH (01:24)
--- NOTE | 2022-03-28 03:42 | PC.NURSE ---
Pt. restless, states he is unable to sleep. Pt. states that he feels better and wants to go home. Pt. has been found to be walking out of his room a couple times during the night. Pt. currently sitting on the bed in his room.
--- NOTE | 2022-03-28 06:53 | PC.NURSE ---
Pt. asleep in bed after being up most of the night. Pt. woke up for labs to be drawn and promptly went back to sleep.
[2022-03-28 07:20] LABS: Hematocrit 35.2 % (42.0-52.0); Hemoglobin 11.4 g/dl (14.0-18.0); Mean Corpuscular HGB Conc 32.4 g/dl (31.0-36.0); Mean Corpuscular Hemoglobin 31.1 pg (27.0-33.0); Mean Corpuscular Volume 96.2 fL (80.0-98.0); Mean Platelet Volume 11.6 fL (9.4-12.4); Platelet Count 170 X10*3/uL (160-400); Red Blood Count 3.66 X10*6/uL (4.60-5.80); Red Cell Distribution Width 16.5 % (11.0-16.0); White Blood Count 5.9 X10*3/uL (4.8-10.8)
[2022-03-28 07:34] LABS: Anion Gap 13 (12-20); Blood Urea Nitrogen 18 mg/dL (9-16); Calcium 8.2 mg/dL (8.4-10.2); Carbon Dioxide 24 mmol/L (22-29); Chloride 105 mmol/L (96-108); Creatinine Clr Calc Pharmacy 74.4; Estimated Glomerular Filt Rate > 60; Glucose Fasting 87 mg/dL (60-99); Magnesium 2.2 mg/dL (1.6-2.6); Potassium 3.7 mmol/L (3.3-5.1); Sodium 138 mmol/L (135-145)
[2022-03-28] MEDS: Amiodarone HCL 200 MG TABLET PO (11:08)
[2022-03-28] MEDS: Omeprazole 20 MG CAPSULE.DR PO (11:08)
[2022-03-28] MEDS: Sertraline HCL 25 MG TABLET PO (11:08)
[2022-03-28] MEDS: amLODIPine Besylate 5 MG TABLET PO (11:08)
[2022-03-28] MEDS: Apixaban 5 MG TABLET PO ×2 (11:08→20:53)
[2022-03-28] MEDS: Ascorbic Acid 500 MG TABLET PO (11:08)
[2022-03-28] MEDS: Cholecalciferol (Vitamin D3) 25 MCG TABLET PO (11:08)
[2022-03-28] MEDS: Metoprolol Succinate ER 50 MG TAB.ER.24H PO (11:09)
[2022-03-28] MEDS: allopurinoL 100 MG TABLET PO (11:09)
[2022-03-28] MEDS: Multivitamin TABLET 1 TAB PO (11:09)
[2022-03-28] MEDS: Cyanocobalamin (Vitamin B-12) 1,000 MCG TABLET 1000 MCG PO (11:09)
[2022-03-28] MEDS: Folic Acid 1 MG TABLET PO (11:09)
[2022-03-28] MEDS: Furosemide 40 MG TABLET PO (11:09)
--- NOTE | 2022-03-28 11:35 | MHC.CM.PN ---
Met with patient and Adali in regards to discharge planning. Patient lives with his , ambulates with a walker and had no services prior to coming to the hospital. No services anticipated to be needed. PCP verified. Copy of HCP verified to be on file. Patient received 5 Covid vaccines. Obs notice explained and signed. Adali will transport patient home when medically stable. Continue to monitor for d/c needs.
[2022-03-28] MEDS: Finasteride 5 MG TABLET PO (12:36)
--- NOTE | 2022-03-28 12:48 | HO.PM.IMPN ---
Subjective Subjective Date of Service: 03/28/22 Interval History: resting comfortably offers no acute complaints of lightheadedness, dizziness, no chest pain, no palpitation, no other acute issues since admission. Review of Systems CVS no chest pain, no palpitation respiratory no cough, no shortness of breath GI no nausea no vomiting no abdominal pain Review of Systems: Yes all other systems are reviewed and are negative Physical Exam Vital Signs: Vital Signs: Last Vital Signs Temp 97.6 F 03/28/22 08:04 Pulse 76 03/28/22 11:14 Resp 14 03/28/22 11:14 BP 134/78 03/28/22 11:14 Pulse Ox 98 03/28/22 11:14 O2 Del Method 03/28/22 11:14 BMI result Body Mass Index 34.8 Const: Other: General: awake jaelyn rt in no acute dis tress HEENT:? smal l abrasian over ri ght eye Neck: no JV CVS: S1, S2, ir regular Resp: CTA bilateral, no resp iratory distress G I: soft, non tende r, bowel sounds a udible,non distend ed Skin: no rashes Extremities: no e brian Neuro: [place] ed X3, grossly int act Psych: coopera tive Objective Data Active Medications Allopurinol (Allopurinol 100 Mg Tablet) 100 mg PO DAILY [facility] Last Admin: 03/28/22 11:09 Dose: 100 mg Documented By: ALMITA Amiodarone HCl (Amiodarone Hcl 200 Mg Tablet) 200 mg PO DAILY [facility] Last Admin: 03/28/22 11:08 Dose: 200 mg Documented By: ALMITA Amlodipine Besylate (Amlodipine Besylate 5 Mg Tablet) 5 mg PO DAILY [facility]; Protocol Last Admin: 03/28/22 11:08 Dose: 5 mg Documented By: ALMITA Apixaban (Apixaban 5 Mg Tablet) 5 mg PO BID [facility] Last Admin: 03/28/22 11:08 Dose: 5 mg Documented By: ALMITA Ascorbic Acid (Ascorbic Acid 500 Mg Tablet) 500 mg PO DAILY [facility] Last Admin: 03/28/22 11:08 Dose: 500 mg Documented By: ALMITA Atorvastatin Calcium (Atorvastatin Calcium 40 Mg Tablet) 40 mg PO BEDTIME [facility] Last Admin: 03/27/22 22:38 Dose: 40 mg Documented By: LIVE Cyanocobalamin (Cyanocobalamin (Vitamin B-12) 1,000 Mcg Tablet) 1,000 mcg PO DAILY [facility] Last Admin: 03/28/22 11:09 Dose: 1,000 mcg Documented By: ALMITA Finasteride (Finasteride 5 Mg Tablet) 5 mg PO DAILY@1200 [facility] Last Admin: 03/28/22 12:36 Dose: 5 mg Documented By: NAKIA Folic Acid (Folic Acid 1 Mg Tablet) 1 mg PO DAILY [facility] Last Admin: 03/28/22 11:09 Dose: 1 mg Documented By: ALMITA Furosemide (Furosemide 40 Mg Tablet) 40 mg PO DAILY [facility]; Protocol Last Admin: 03/28/22 11:09 Dose: 40 mg Documented By: ALMITA Gabapentin (Gabapentin 400 Mg Capsule) 400 mg PO BEDTIME [facility] Last Admin: 03/27/22 22:38 Dose: 400 mg Documented By: LIVE Metoprolol Succinate (Metoprolol Succinate Er 50 Mg Tab.Er.24h) 50 mg PO DAILY [facility]; Protocol Last Admin: 03/28/22 11:09 Dose: 50 mg Documented By: ALMITA Multivitamins/Vitamin C (Multivitamin Tablet) 1 tab PO DAILY [facility] Last Admin: 03/28/22 11:09 Dose: 1 tab Documented By: ALMITA Nitroglycerin (Nitroglycerin 0.4 Mg Tab.Subl) 0.4 mg SUBLINGUAL Q5M PRN PRN Reason: chest pain Omeprazole (Omeprazole 20 Mg Capsule.Dr) 20 mg PO DAILY@0630 [facility] Last Admin: 03/28/22 11:08 Dose: 20 mg Documented By: ALMITA Pharmacy Consult (Consult Rx Perform Med Rec) 1 each MISCELLANE ONCE PRN PRN Reason: Consult order Sertraline HCl (Sertraline Hcl 25 Mg Tablet) 25 mg PO DAILY [facility] Last Admin: 03/28/22 11:08 Dose: 25 mg Documented By: ALMITA Sodium Chloride (0.9 % Sodium Chloride Flush 3 Ml Syringe) 3 ml IVFLUSH QSHIFT [facility] Last Admin: 03/28/22 11:15 Dose: Not Given Documented By: NIRAJ-JEANNIEHC Non-Admin Reason: IV Running Vitamin D (Cholecalciferol (Vitamin D3) 25 Mcg Tablet) 25 mcg PO DAILY [facility] Last Admin: 12/21/22 11:08 Dose: 25 mcg Documented By: ALMITA Labs CBC & Chem 7: 03/28/22 06:17 03/28/22 06:17 Labs: Laboratory Results - last 24 hr 03/27/22 03/27/22 03/27/22 12:31 12:31 13:05 MCV MCH MCHC RDW Plt Count MPV Absolute Nucleated RBC Nucleated RBC % (auto) PT 19.4 H INR 1.7 H APTT 32.3 Anion Gap Estim Creat Clear Calc Estimated GFR Random Glucose Fasting Glucose Calcium Magnesium 2.2 Total Bilirubin AST ALT Alkaline Phosphatase Troponin I High Sens 11.1 Total Protein Albumin Urine Color Urine Appearance Urine pH Ur Specific [place] Urine Protein Urine Glucose (UA) Urine Ketones Urine Blood Urine Nitrite Ur Leukocyte Esterase Urine RBC Urine WBC Ur Squamous Epith Cells Urine Bacteria Hyaline Casts Influenza Type A (PCR) Influenza Type B (PCR) RSV RNA Qual (PCR) SARS-CoV-2 RNA (RT-PCR) 03/27/22 03/27/22 03/27/22 13:35 14:34 16:48 MCV MCH MCHC RDW Plt Count MPV Absolute Nucleated RBC Nucleated RBC % (auto) PT INR APTT Anion Gap 11 L Estim Creat Clear Calc 71.2 Estimated GFR > 60 Random Glucose 84 Fasting Glucose Calcium 8.0 L D Magnesium Total Bilirubin 1.0 AST 27 ALT 38 Alkaline Phosphatase 84 Troponin I High Sens 11.6 Total Protein 5.6 L Albumin 3.6 Urine Color Yellow Urine Appearance Clear Urine pH 6.0 Ur Specific [place] 1.010 Urine Protein Negative Urine Glucose (UA) Negative Urine Ketones Negative Urine Blood Negative Urine Nitrite Negative Ur Leukocyte Esterase Small (1+) H Urine RBC 0-2 Urine WBC 0-5 Ur Squamous Epith Cells 0-2 Urine Bacteria None Seen Hyaline Casts 0-2 Influenza Type A (PCR) Influenza Type B (PCR) RSV RNA Qual (PCR) SARS-CoV-2 RNA (RT-PCR) 03/27/22 03/28/22 03/28/22 17:44 06:17 06:17 MCV 96.2 MCH 31.1 MCHC 32.4 RDW 16.5 H Plt Count 170 MPV 11.6 Absolute Nucleated RBC 0.000 Nucleated RBC % (auto) 0.0 PT INR APTT Anion Gap 13 Estim Creat Clear Calc 74.4 Estimated GFR > 60 Random Glucose Fasting Glucose 87 Calcium 8.2 L Magnesium 2.2 Total Bilirubin AST ALT Alkaline Phosphatase Troponin I High Sens Total Protein Albumin Urine Color Urine Appearance Urine pH Ur Specific [place] Urine Protein Urine Glucose (UA) Urine Ketones Urine Blood Urine Nitrite Ur Leukocyte Esterase Urine RBC Urine WBC Ur Squamous Epith Cells Urine Bacteria Hyaline Casts Influenza Type A (PCR) NEGATIVE Influenza Type B (PCR) NEGATIVE RSV RNA Qual (PCR) NEGATIVE SARS-CoV-2 RNA (RT-PCR) NEGATIVE Microbiology Microbiology Results: Microbiology 03/27/22 Unknown Urine Culture - Final Urine clean catch - Urine caruso top No growth. Assessment and Plan (1) Syncope: Status: Acute Plan 82M PMH CAD, Pafib, dementia, hld, htn, gout, JODI, chronic diastolic chf presented with syncope syncope Two episodes of syncope day prior to presentation, and 1 episode on day of admission question related to polypharmacy, will reduce dose of Neurontin and question DC Norvasc history of coronary artery disease status post cardioversion for atrial fibrillation patient converted 2s normal sinus rhythm but reverted back to atrial fibrillation negative troponin, EKG showed atrial fibrillation, normal orthostatic BP. continue tele, await Cardio input CAD continue beta-blockers, eliquis, statin being followed by Dr. Bean as outpatient, no chest pain normal troponin paroxysmal atrial fibrillation continue amio, eliquis and metoprolol htn BP soft on arrival to emergency room 103/55, on metoprolol, amlodipine and Lasix , will discuss with Cardiology to DC amlodipine to be a very good day hld continue statin gout on allopurinol neuropathy on gabapentin 400 mg at bedtime can reduce dose to 300 mg at bedtime chornic diastolic chf no acute exacerbation, continue lasix history of obstructive sleep apnea dvt prophyalxis - on eliquis full code Time Spent With Patient Time: Total time managing care of this patient today ____ minutes. Quality Stroke Does the patient have a stroke diagnosis?: No VTE Prior VTE?: No VTE Risk Level:: Medical - moderate - high VTE Device Contraindication: Treatment Not Indicated VTE Drug Contraindication: N/A - Med Ordered
--- NOTE | 2022-03-28 14:14 | P.CONCA_ITS ---
History of Present Illness History of Present Illness Date of Service: 03/28/22 Requesting physician: Eduardo Pérez Chief complaint: Syncope Narrative: [age] year gentleman presenting with syncope. He has background history of hyperlipidemia, sleep apnea, hypertension, coronary disease and paroxysmal atrial fibrillation. He is on apixaban. He is presenting for syncope. He does not remember the exact details. He said he was fine and then found himself on the floor. It appears he hit his forehead and there is a bruise on right side of his forehead. He is denying any chest discomfort shortness of breath. He is saying he did not have any recent episodes like this. No obvious heart block or any issues noticed on telemetry or EKG. Orthostatics were checked and they were normal. He had echocardiogram in match which showed normal LVEF. He had basal inferior and basal inferolateral hypokinesis noticed. No significant valvular disease was noted. [facility] Past Medical History Medical History Atherosclerotic cardiovascular disease Embolic stroke Erosive osteoarthritis Essential hypertension Gout Obesity (BMI 30-39.9) JODI on CPAP Osteoarthritis PAF (paroxysmal atrial fibrillation) Prostate cancer Psoriatic arthritis Pure hypercholesterolemia Family History Family History Father No problems noted. Mother No problems noted. Surgical History Surgical History Hx of cardiac cath Hx of cholecystectomy Hx of colonoscopy Hx of eye surgery Stented coronary artery Social History Social History Housing: House Alcohol intake: never Patient Tobacco Use Status: Never used Tobacco Smoked in Last 30 Days: No Second Hand Smoke Exposure: No Use of substances other than those prescribed or required for medical reasons: No Advance Directives: Yes Advance Directives on File: Yes Advance Directives Date on File: 03/28/22 service: No Current occupational status: retired Meds Allergies Allergy/AdvReac Type Severity Reaction Status Date / Time penicillin V Allergy Intermediate hives Verified 03/21/22 15:00 Active Medications: Current Medications Allopurinol (Allopurinol 100 Mg Tablet) 100 mg PO DAILY [facility] Last Admin: 03/28/22 11:09 Dose: 100 mg Amiodarone HCl (Amiodarone Hcl 200 Mg Tablet) 200 mg PO DAILY [facility] Last Admin: 03/28/22 11:08 Dose: 200 mg Amlodipine Besylate (Amlodipine Besylate 5 Mg Tablet) 5 mg PO DAILY [facility]; Protocol Last Admin: 03/28/22 11:08 Dose: 5 mg Apixaban (Apixaban 5 Mg Tablet) 5 mg PO BID [facility] Last Admin: 03/28/22 11:08 Dose: 5 mg Ascorbic Acid (Ascorbic Acid 500 Mg Tablet) 500 mg PO DAILY [facility] Last Admin: 03/28/22 11:08 Dose: 500 mg Atorvastatin Calcium (Atorvastatin Calcium 40 Mg Tablet) 40 mg PO BEDTIME [facility] Last Admin: 03/27/22 22:38 Dose: 40 mg Cyanocobalamin (Cyanocobalamin (Vitamin B-12) 1,000 Mcg Tablet) 1,000 mcg PO DAILY [facility] Last Admin: 03/28/22 11:09 Dose: 1,000 mcg Finasteride (Finasteride 5 Mg Tablet) 5 mg PO DAILY@1200 [facility] Last Admin: 03/28/22 12:36 Dose: 5 mg Folic Acid (Folic Acid 1 Mg Tablet) 1 mg PO DAILY [facility] Last Admin: 03/28/22 11:09 Dose: 1 mg Furosemide (Furosemide 40 Mg Tablet) 40 mg PO DAILY [facility]; Protocol Last Admin: 03/28/22 11:09 Dose: 40 mg Gabapentin (Gabapentin 300 Mg Capsule) 300 mg PO BEDTIME [facility] Metoprolol Succinate (Metoprolol Succinate Er 50 Mg Tab.Er.24h) 50 mg PO DAILY [facility]; Protocol Last Admin: 03/28/22 11:09 Dose: 50 mg Multivitamins/Vitamin C (Multivitamin Tablet) 1 tab PO DAILY [facility] Last Admin: 03/28/22 11:09 Dose: 1 tab Nitroglycerin (Nitroglycerin 0.4 Mg Tab.Subl) 0.4 mg SUBLINGUAL Q5M PRN PRN Reason: chest pain Omeprazole (Omeprazole 20 Mg Capsule.Dr) 20 mg PO DAILY@0630 [facility] Last Admin: 03/28/22 11:08 Dose: 20 mg Pharmacy Consult (Consult Rx Perform Med Rec) 1 each MISCELLANE ONCE PRN PRN Reason: Consult order Sertraline HCl (Sertraline Hcl 25 Mg Tablet) 25 mg PO DAILY [facility] Last Admin: 03/28/22 11:08 Dose: 25 mg Sodium Chloride (0.9 % Sodium Chloride Flush 3 Ml Syringe) 3 ml IVFLUSH QSHIFT [facility] Last Admin: 03/28/22 11:15 Dose: Not Given Vitamin D (Cholecalciferol (Vitamin D3) 25 Mcg Tablet) 25 mcg PO DAILY [facility] Last Admin: 03/28/22 11:08 Dose: 25 mcg Home Medications Medication Instructions Recorded Confirmed Last Taken Type omeprazole 20 mg capsule,delayed 20 mg PO DAILY@0630 02/04/20 03/27/22 03/27/22 History release sertraline 25 mg tablet 25 mg PO DAILY 03/16/21 03/27/22 03/27/22 History donepezil 10 mg tablet 10 mg PO BEDTIME 05/23/21 03/27/22 03/26/22 History amlodipine 5 mg tablet 5 mg PO DAILY 03/27/22 03/27/22 03/27/22 History ascorbic acid (vitamin C) 500 mg 500 mg PO DAILY 03/27/22 03/27/22 03/27/22 History tablet (Vitamin C) atorvastatin 40 mg tablet 40 mg PO BEDTIME 03/27/22 03/27/22 03/26/22 History cholecalciferol (vitamin D3) 25 25 mcg PO DAILY 03/27/22 03/27/22 03/27/22 History mcg (1,000 unit) tablet (Vitamin D3) cyanocobalamin (vitamin B-12) 1,000 mcg PO DAILY 03/27/22 03/27/22 03/27/22 History 1,000 mcg tablet finasteride 5 mg tablet 5 mg PO DAILY@1200 03/27/22 03/27/22 03/26/22 History methotrexate sodium 2.5 mg tablet 4 tab PO CHARLES@0900,2100 03/27/22 03/27/22 03/25/22 History multivitamin 1 tab PO DAILY 03/27/22 03/27/22 03/27/22 History nystatin 100,000 unit/gram topical 1 appl topical TID PRN Rash 03/27/22 03/27/22 Unknown History powder (Nystop) nystatin-triamcinolone 100,000 1 appl topical BID PRN Rash 03/27/22 03/27/22 Unknown History unit/gram-0.1 % topical ointment omega-3 360 wf-rda-gmu-fish oil 1 cap PO BEDTIME 03/27/22 03/27/22 03/26/22 History 1,200 mg capsule,delayed release (Fish Oil) vitamin E 200 unit tablet 90 mg PO DAILY 03/27/22 03/27/22 03/27/22 History Physical Exam Vital Signs: Vital Signs: Last Vital Signs Temp 97.6 F 03/28/22 08:04 Pulse 84 03/28/22 13:24 Resp 16 03/28/22 13:21 BP 131/77 03/28/22 13:24 Pulse Ox 98 03/28/22 13:21 O2 Del Method 03/28/22 13:21 BMI result Body Mass Index 34.8 GENERAL APPEARANCE: in no acute distress, pleasant. NECK: no carotid bruit, no jugular venous distention. SKIN: no suspicious lesions, warm and dry. HEART: no murmurs, regular rate and rhythm. LUNGS: clear to auscultation bilaterally. ABDOMEN: soft, nontender. EXTREMITIES: no edema. PERIPHERAL PULSES: equal. NEUROLOGIC: No gross deficits, AAO X 3 Objective Labs and Meds Result diagrams: 03/28/22 06:17 03/28/22 06:17 Lab results: Laboratory Results - last 24 hr 03/27/22 03/27/22 03/27/22 14:34 16:48 17:44 WBC RBC Hgb Hct MCV MCH MCHC RDW Plt Count MPV Absolute Nucleated RBC Nucleated RBC % (auto) Sodium 140 Potassium 4.3 Chloride 105 Carbon Dioxide 28 Anion Gap 11 L BUN 20 H Creatinine 0.93 Estim Creat Clear Calc 71.2 Estimated GFR > 60 Random Glucose 84 Fasting Glucose Calcium 8.0 L D Magnesium Total Bilirubin 1.0 AST 27 ALT 38 Alkaline Phosphatase 84 Troponin I High Sens 11.6 Total Protein 5.6 L Albumin 3.6 Influenza Type A (PCR) NEGATIVE Influenza Type B (PCR) NEGATIVE RSV RNA Qual (PCR) NEGATIVE SARS-CoV-2 RNA (RT-PCR) NEGATIVE 03/28/22 03/28/22 06:17 06:17 WBC 5.9 RBC 3.66 L Hgb 11.4 L Hct 35.2 L MCV 96.2 MCH 31.1 MCHC 32.4 RDW 16.5 H Plt Count 170 MPV 11.6 Absolute Nucleated RBC 0.000 Nucleated RBC % (auto) 0.0 Sodium 138 Potassium 3.7 Chloride 105 Carbon Dioxide 24 Anion Gap 13 BUN 18 H Creatinine 0.89 Estim Creat Clear Calc 74.4 Estimated GFR > 60 Random Glucose Fasting Glucose 87 Calcium 8.2 L Magnesium 2.2 Total Bilirubin AST ALT Alkaline Phosphatase Troponin I High Sens Total Protein Albumin Influenza Type A (PCR) Influenza Type B (PCR) RSV RNA Qual (PCR) SARS-CoV-2 RNA (RT-PCR) Imaging Radiologist's impression: Impressions Cervical Spine CT 03/27/22 16:10 IMPRESSION: Mild straightening of cervical lordosis likely spasm. Degenerative disc changes C3-C4, C5-C6, C6-C7 and C7-T1 disc levels with moderate ventral spondylosis. Fleischner guidelines were followed. Head CT 03/27/22 16:10 IMPRESSION: No acute intracranial pathology. Abdomen/Pelvis CT 03/27/22 16:15 IMPRESSION: 1. No evidence of a traumatic injury in the chest, abdomen or pelvis. No hip or rib fractures 2. Incidental note made of new trace right pleural effusion, severe multivessel coronary calcifications, postsurgical changes in the liver, bilateral Bosniak class I and class II renal cysts which need no further imaging or follow-up, and degenerative changes in the spine. Fleischner guidelines were followed. Chest CT 03/27/22 16:15 IMPRESSION: 1. No evidence of a traumatic injury in the chest, abdomen or pelvis. No hip or rib fractures 2. Incidental note made of new trace right pleural effusion, severe multivessel coronary calcifications, postsurgical changes in the liver, bilateral Bosniak class I and class II renal cysts which need no further imaging or follow-up, and degenerative changes in the spine. Fleischner guidelines were followed. Assessment and Plan (1) Syncope: Status: Acute Plan [age] year gentleman presenting with syncope. There is no obvious cause found so far. His orthostatics are negative. I think we should repeat echocardiogram to rule out any wall motion abnormality or RV dysfunction. He has been on apixaban for anticoagulation for atrial fibrillation and risk of PE is low. If workup is negative then we will arrange a cardiac event monitor for him. Doubt that his presentation is due to any ischemic event. His high sensitivity troponin levels are 11.1 and 11.6. Thank you for allowing me to participate in the care of your patient. Please feel free to contact me if you have any questions. Time Spent With Patient Time: Total time managing care of this patient today ____ minutes. Procedures Date of Service Date of Service: 03/28/22
--- NOTE | 2022-03-28 17:37 | PC.NURSE ---
pt brought to ovflw 7 from main ed. pt denies pain, no apparent distress observed. vss, pt's at bedside. pt ambulated to bathroom using walker with staff assist.
[2022-03-28] MEDS: Atorvastatin Calcium 40 MG TABLET PO (20:53)
[2022-03-28] MEDS: Gabapentin 300 MG CAPSULE PO (20:53)
--- NOTE | 2022-03-28 21:07 | PC.NURSE ---
Patient is alert and oriented x3, forgetful at times. VSS. Patient denies any pain at present. Patient ambulates to the restroom with a walker and supervision of 1 person. Patient medicated with bed time medications. No s/s of acute distress noted.
--- NOTE | 2022-03-28 23:50 | MHC.EDTECH ---
pt ambulated with walker to the BR for Bmc
--- NOTE | 2022-03-28 23:51 | MHC.EDTECH ---
pt walk to and from the BR to have a BM, and back to bed he is and reconnected to the heart monitor. a pitcher of water was given he is ok
[2022-03-29 02:34] VITALS: BP 121/76; PULSE 85; RESP 15; TEMP 36.9; O2SAT 95
[2022-03-29] MEDS: Apixaban 5 MG TABLET PO (08:52)
[2022-03-29] MEDS: Cyanocobalamin (Vitamin B-12) 1,000 MCG TABLET 1000 MCG PO (08:52)
[2022-03-29] MEDS: Folic Acid 1 MG TABLET PO (08:52)
[2022-03-29] MEDS: Amiodarone HCL 200 MG TABLET PO (08:52)
[2022-03-29] MEDS: Sertraline HCL 25 MG TABLET PO (08:52)
[2022-03-29] MEDS: amLODIPine Besylate 5 MG TABLET PO (08:52)
[2022-03-29] MEDS: Cholecalciferol (Vitamin D3) 25 MCG TABLET PO (08:52)
[2022-03-29] MEDS: Ascorbic Acid 500 MG TABLET PO (08:52)
[2022-03-29] MEDS: allopurinoL 100 MG TABLET PO (08:52)
[2022-03-29] MEDS: Multivitamin TABLET 1 TAB PO (08:53)
[2022-03-29] MEDS: Furosemide 40 MG TABLET PO (08:53)
[2022-03-29] MEDS: Metoprolol Succinate ER 50 MG TAB.ER.24H PO (08:53)
[2022-03-29] MEDS: Omeprazole 20 MG CAPSULE.DR PO (09:03)
[2022-03-29] MEDS: 0.9 % Sodium Chloride Flush 3 ML SYRINGE IVFLUSH ×2 (09:03→16:05)
[2022-03-29 09:33] VITALS: BP 121/73; PULSE 72; RESP 16; TEMP 36.2; O2SAT 100
--- NOTE | 2022-03-29 10:00 | CA_ITS ---
Transthoracic Echocardiogram Patient (Last, First, Middle): Derrick Huang X Gender: Male Date of : 1940 Age: 82 Procedure Date: 03/29/2022 Procedure Type: Transthoracic Echocardiogram Location: ER Height: 175.26 cm Weight: 107.05 kg BSA: 2.22 m2 Heart Rate: bpm BP: 121 / [address]/Medical Interpreter: YASHIRA Referring MD: Mark Barr MD Symptoms: syncope Study Quality: Fair Conclusions: - Normal left ventricular size and systolic function. There is mildly increased left ventricular wall thickness. The visually estimated ejection fraction is between 60-65%. - Normal right ventricular cavity size. There is borderline right ventricular systolic function. - Mildly elevated right atrial pressure. Mild pulmonary hypertension is present. - There is mild dilatation of the sinuses of Valsalva measuring 4.10 cm and mild dilatation of the ascending aorta measuring 4.10 cm. Findings Left Ventricle Normal left ventricular size and systolic function. There is mildly increased left ventricular wall thickness. The visually estimated ejection fraction is between 60-65%. There is evidence of regional wall motion abnormalities. Diastolic function is indeterminate on the basis of available data. GLS abnormal -11%. Wall Motion Rest Echo Findings The basal inferior segment is akinetic. Right Ventricle Normal right ventricular cavity size. There is borderline right ventricular systolic function. Atria The left atrium is moderately dilated. The right atrium is normal in size. Aortic Valve There is a normal trileaflet aortic valve. There is no aortic valve stenosis. There is trace (trivial) aortic valve regurgitation. Mitral Valve There is severe mitral annular calcification. There is mild to moderate mitral valve regurgitation. There is no mitral valve stenosis. Pulmonic Valve The pulmonic valve is likely normal. Tricuspid Valve Normal tricuspid valve structure. There is trace tricuspid valve regurgitation. Mildly elevated right atrial pressure. Mild pulmonary hypertension is present. Great Vessels The pulmonary artery was not well visualized. There is mild dilatation of the sinuses of Valsalva measuring 4.10 cm and mild dilatation of the ascending aorta measuring 4.10 cm. Venous The inferior vena cava is dilated and collapses greater than 50% with inspiration. Pericardium/Pleural There is no evidence of pericardial effusion. Prior Study Comparison No significant change compared to prior study dated: 06/07/2021. Measurements 2D Linear Measurements IVSd: 1.21 0.6-0.9/0.6-1.0 cm LVIDd: 4.29 3.9-5.3/4.2-5.9 cm LVIDd Index: 1.93 2.4-3.2/2.2-3.1 cm/m2 LVIDs: 3.44 2.0-3.6 cm LVPWd: 1.11 0.7-1.1 cm LA Diam: 3.80 2.7-3.8/3.0-4.0 cm LAIDs Index: 1.71 1.5-2.3 cm/m2 LV Mass: 218.25 67-162/88-224 g LV Mass Index: 98.31 43-95/49-115 g/m2 LVOT Diam: 2.20 3.0+(-)1.3 cm 2D Systolic Function EF 4C: 61.60 >55% EF 2C: 59.20 >55% EF BiP: 59.90 >55% Mitral Valve MV Pk E: 1.32 MV Decel Time: 219.00 E'Lateral: 9.25 E'Medial: 6.31 E/E' Med: 20.90 E/E' Lat: 14.30 PHT: 64.00 MVA PHT: 3.44 Decel [place]: 6.15 MR Vol - PW Dopp: 40.04 MR VTI: 1.82 MR ERO: 22.00 MR Alias Lew: 0.37 MR RAD: 0.70 Aortic Valve AoV Pk Lew: 1.12 AoV Mn Lew: 0.79 AoV VTI: 0.22 AoV Pk Grad: 5.00 Aov Mn Grad: 3.00 MARCIAL Cont.VTI: 2.61 LVOT LVOT Pk Lew: 0.79 LVOT Mn Lew: 0.52 LVOT VTI: 0.15 LVOT Pk Grad: 2.00 LVOT Mn Grad: 1.00 LVOT Diam: 2.20 LVOT Area: 3.80 Diastolic Function MV Pk E: 1.32 E'Medial: 6.31 E/E' Med: 20.90 E' Laterial: 9.25 E/E' Lat: 14.30 Right Ventricle TAPSE (mm): 19.90 TVS' Lew: 8.40 Tricuspid Valve TR Pk Lew: 2.86 TR Pk Grad: 33.00 RA Press: 8.00 RVSP: 41.00 Great Vessels Aorta Sinus of Valsalva: 4.10 2.0-3.[address] [place]: 2.67 1.7-3.4 cm Ao Asc: 4.10 2.1-3.4 cm Updated in Other Vendor System with Status of Final Mina Kim MD electronically signed on 03/29/2022 1:20:23 PM with status of Final
[2022-03-29] MEDS: Finasteride 5 MG TABLET PO (13:14)
[2022-03-29 14:00] VITALS: BP 106/54; PULSE 85; RESP 18; O2SAT 96
--- NOTE | 2022-03-29 14:35 | P.PNIM_ITS ---
Subjective Subjective Date of Service: 03/29/22 Interval History: cC: syncope interval history: no events Cardiovascular Cardiovascular: Reports no additional cardiovascular complaints Respiratory Respiratory: Reports no additional respiratory complaints Physical Exam Vital Signs: Vital Signs: Last Vital Signs Temp 97.2 F 03/29/22 09:33 Pulse 72 03/29/22 09:33 Resp 16 03/29/22 09:33 BP 121/73 03/29/22 09:33 Pulse Ox 100 03/29/22 09:33 O2 Del Method 03/29/22 09:33 BMI result Body Mass Index 34.8 General: AO X 3, no acute distress Resp: CTA bilateral, no accessory muscles used CVS: S1,S2,irregular GI: soft, non tender, non distended Neuro: motor grossly intact, alert Psych: appropriate affect, appropriate insight Objective Data Active Medications Allopurinol (Allopurinol 100 Mg Tablet) 100 mg PO DAILY [facility] Last Admin: 03/29/22 08:52 Dose: 100 mg Documented By: PARVEEN Amiodarone HCl (Amiodarone Hcl 200 Mg Tablet) 200 mg PO DAILY [facility] Last Admin: 03/29/22 08:52 Dose: 200 mg Documented By: PARVEEN Amlodipine Besylate (Amlodipine Besylate 5 Mg Tablet) 5 mg PO DAILY [facility]; Protocol Last Admin: 03/29/22 08:52 Dose: 5 mg Documented By: PARVEEN Apixaban (Apixaban 5 Mg Tablet) 5 mg PO BID [facility] Last Admin: 03/29/22 08:52 Dose: 5 mg Documented By: PARVEEN Ascorbic Acid (Ascorbic Acid 500 Mg Tablet) 500 mg PO DAILY [facility] Last Admin: 03/29/22 08:52 Dose: 500 mg Documented By: PARVEEN Atorvastatin Calcium (Atorvastatin Calcium 40 Mg Tablet) 40 mg PO BEDTIME [facility] Last Admin: 03/28/22 20:53 Dose: 40 mg Documented By: MAEGAN Cyanocobalamin (Cyanocobalamin (Vitamin B-12) 1,000 Mcg Tablet) 1,000 mcg PO DAILY [facility] Last Admin: 03/29/22 08:52 Dose: 1,000 mcg Documented By: PARVEEN Finasteride (Finasteride 5 Mg Tablet) 5 mg PO DAILY@1200 [facility] Last Admin: 03/29/22 13:14 Dose: 5 mg Documented By: PARVEEN Folic Acid (Folic Acid 1 Mg Tablet) 1 mg PO DAILY [facility] Last Admin: 03/29/22 08:52 Dose: 1 mg Documented By: PARVEEN Furosemide (Furosemide 40 Mg Tablet) 40 mg PO DAILY [facility]; Protocol Last Admin: 03/29/22 08:53 Dose: 40 mg Documented By: PARVEEN Gabapentin (Gabapentin 300 Mg Capsule) 300 mg PO BEDTIME [facility] Last Admin: 03/28/22 20:53 Dose: 300 mg Documented By: MAEGAN Metoprolol Succinate (Metoprolol Succinate Er 50 Mg Tab.Er.24h) 50 mg PO DAILY [facility]; Protocol Last Admin: 03/29/22 08:53 Dose: 50 mg Documented By: PARVEEN Multivitamins/Vitamin C (Multivitamin Tablet) 1 tab PO DAILY [facility] Last Admin: 03/29/22 08:53 Dose: 1 tab Documented By: PARVEEN Nitroglycerin (Nitroglycerin 0.4 Mg Tab.Subl) 0.4 mg SUBLINGUAL Q5M PRN PRN Reason: chest pain Omeprazole (Omeprazole 20 Mg Capsule.Dr) 20 mg PO DAILY@0630 [facility] Last Admin: 03/29/22 09:03 Dose: 20 mg Documented By: PARVEEN Pharmacy Consult (Consult Rx Perform Med Rec) 1 each MISCELLANE ONCE PRN PRN Reason: Consult order Sertraline HCl (Sertraline Hcl 25 Mg Tablet) 25 mg PO DAILY [facility] Last Admin: 03/29/22 08:52 Dose: 25 mg Documented By: PARVEEN Sodium Chloride (0.9 % Sodium Chloride Flush 3 Ml Syringe) 3 ml IVFLUSH QSHIFT [facility] Last Admin: 03/29/22 09:03 Dose: 3 ml Documented By: PARVEEN Vitamin D (Cholecalciferol (Vitamin D3) 25 Mcg Tablet) 25 mcg PO DAILY [facility] Last Admin: 03/29/22 08:52 Dose: 25 mcg Documented By: PARVEEN Labs CBC & Chem 7: 03/28/22 06:17 03/28/22 06:17 Microbiology Microbiology Results: Microbiology 03/27/22 Unknown Urine Culture - Final Urine clean catch - Urine caruso top No growth. Assessment and Plan (1) Syncope: Status: Acute Plan 82M PMH CAD, Pafib, dementia, hld, htn, gout, JODI, chronic diastolic chf presented with syncope syncope concern for cardigenic, no events on tele, echo normal EF, mild pulm htn will check ddimer, may need event monitor CAD continue beta-blockers, eliquis, statin being followed by Dr. Bean as outpatient, no chest pain normal troponin paroxysmal atrial fibrillation continue amio, eliquis and metoprolol htn BP soft on arrival to emergency room 103/55, on metoprolol, amlodipine and Lasix , will hold amlodipine gout allopurinol neuropathy on gabapentin 400 mg at bedtime can reduce dose to 300 mg at bedtime chornic diastolic chf no acute exacerbation, continue lasix history of obstructive sleep apnea dvt prophyalxis - on eliquis full code reason for continued hospitalization:working up syncope Time Spent With Patient Time: Total time managing care of this patient today ____ minutes. Quality Stroke Does the patient have a stroke diagnosis?: No VTE Prior VTE?: No VTE Risk Level:: Medical - moderate - high VTE Device Contraindication: Treatment Not Indicated VTE Drug Contraindication: N/A - Med Ordered
[2022-03-29 16:00] VITALS: BP 98/60; PULSE 74; RESP 16; TEMP 36.7; O2SAT 98
[2022-03-29 16:09] LABS: D Dimer High Sensitivity 241 NG/ML
--- NOTE | 2022-03-29 16:17 | PM.DS ---
DS: Providers Provider Date of Service: 03/29/22 Date of admission: 03/27/22 21:22 Primary care physician: Miller Pineda MD Consults: 03/27/22 21:22 Consult to Cardiology Routine Consulting Provider: Mina Kim Reason for consultation: syncope Has provider been notified: Yes DS: Diagnosis Discharge Diagnosis (1) Syncope: Status: Acute DS: Summary Hospital Course Hospital Course: from initial hpi: 82M PMH CAD, Pafib, dementia, hld, htn, gout, JODI, chronic diastolic chf, presented with syncope. patient does not remember event. he states he was at home walking and next thing he remembers he was on the floor having hit his head. was witnessed by , states patient fell to left side, was only out for several seconds. denies any symptoms prior or after. patient had 2 episodes on day ptp. hospital course: Patient was admitted for syncope with concern for cardiogenic cause. He had no events on telemetry. His echocardiogram showed normal EF with mild pulmonary hypertension. D-dimer was unremarkable 240. He was seen by Cardiology recommended outpatient event monitor. First coronary disease he was continued on beta-blockers, Eliquis, statin. for his paroxysmal atrial fibrillation is continue on amiodarone, Eliquis, metoprolol. For his hypertension his blood pressure was low normal, therefore, is amlodipine will be held on discharge. For his gout he was continued on allopurinol. For his neuropathy was continue on gabapentin. For his chronic diastolic CHF he was continued on Lasix. Patient will be discharged home and will follow up outpatient with Cardiology. Time Spent with Patient Time attestation: Total time managing care of this patient today ____ minutes. Discharge coordination time: Greater than 30 minutes Quality: Safe Use of Opioids Does Pt have an Active Cancer Diagnosis on the Problem List?: No Quality: Stroke Does the patient have a stroke diagnosis?: No Physical Exam Vital Signs: Vital Signs: Last Vital Signs Temp 97.2 F 03/29/22 09:33 Pulse 85 03/29/22 14:00 Resp 18 03/29/22 14:00 BP 106/54 L 03/29/22 14:00 Pulse Ox 96 03/29/22 14:00 O2 Del Method 03/29/22 14:00 BMI result Body Mass Index 34.8 General: AO X 3, no acute distress Resp: CTA bilateral, no accessory muscles used CVS: S1,S2,irregular GI: soft, non tender, non distended Neuro: motor grossly intact, alert Psych: appropriate affect, appropriate insight DS: Data Data Completed and Pending Labs on day of discharge: Laboratory Results - last 24 hr 03/29/22 15:27 D-Dimer High Sensitivty 241 Discharge Plan Discharge Anticipated Discharge Date/Time: 03/29/22 16:13 Patient Disposition: Home, Self-Care Discharge Diagnosis: syncope Referrals: Miller Pineda MD [Primary Care Provider] - 1 Week Discharge Medications: Continued furosemide 40 mg tablet 40 mg PO DAILY 90 Days Qty: 90 1RF gabapentin 400 mg capsule 400 mg PO BEDTIME 30 Days Qty: 30 6RF folic acid 1 mg tablet 1 mg PO DAILY Qty: 90 3RF potassium chloride 20 mEq tablet extended release 40 meq PO BID 30 Days Qty: 120 5RF nitroglycerin 0.4 mg tablet, sublingual 0.4 mg sublingual Q5M PRN (Reason: chest pain) Qty: 30 5RF Rx Instructions: do not exceed 3 doses per episode amiodarone 200 mg tablet 200 mg PO DAILY Qty: 90 3RF metoprolol succinate [Toprol XL] 50 mg tablet extended release 24 hr 50 mg PO DAILY Qty: 90 3RF multivitamin Tablet 1 tab PO DAILY cyanocobalamin (vitamin B-12) 1,000 mcg Tablet 1,000 mcg PO DAILY nystatin-triamcinolone 100,000-0.1 unit/gram-% ointment 1 appl topical BID PRN (Reason: Rash) Rx Instructions: apply to folds on legs ascorbic acid (vitamin C) [Vitamin C] 500 mg Tablet 500 mg PO DAILY methotrexate sodium 2.5 mg tablet 4 tab PO CHARLES@0900,2100 vitamin E 200 unit Tablet 90 mg PO DAILY cholecalciferol (vitamin D3) [Vitamin D3] 25 mcg (1,000 unit) Tablet 25 mcg PO DAILY omega 7-qmr-zwy-fish oil [Fish Oil] 360-1,200 mg Capsule,Delayed Release(Dr/Ec) 1 cap PO BEDTIME atorvastatin 40 mg tablet 40 mg PO BEDTIME nystatin [Nystop] 100,000 unit/gram powder 1 appl topical TID PRN (Reason: Rash) Rx Instructions: apply to folds on legs finasteride 5 mg tablet 5 mg PO DAILY@1200 sertraline 25 mg tablet 25 mg PO DAILY omeprazole 20 mg capsule,delayed release(DR/EC) 20 mg PO DAILY@0630 apixaban 5 mg tablet 5 mg PO BID 90 Days Qty: 180 3RF donepezil 10 mg tablet 10 mg PO BEDTIME allopurinol 100 mg tablet 100 mg PO DAILY Qty: 90 1RF Discontinued amlodipine 5 mg Tablet 5 mg PO DAILY Discharge Orders: Discharge Order (Routine); Ordered 03/29/22 Ordered By: Mark Barr Diet: Advance to usual diet Activity on Discharge: As tolerated Stand Alone Forms: Patient Portal Discharge page Care Plan Goals: recovery Health Concerns: sycnope Plan of Treatment: hold amlodipine for now, follow up with cardio Assessment: see above
== END 2022-03-29 17:32 | disposition home or self-care (01) ==
LOC: HO.ED 19:40 → HO.EDOVER 21:35
PROVIDERS: Physician Assistant; Admitting Provider Internal Medicine; Emergency Provider Emergency Medicine Emergency Medical Services; PCP Internal Medicine; Visit Provider Internal Medicine
DX: R55 Syncope and collapse (principal); S00.83XA Contusion of other part of head, initial encounter; W19.XXXA Unspecified fall, initial encounter; F03.90 Unspecified dementia, unspecified severity, without behavioral disturbance, psychotic disturbance, mood disturbance, and anxiety; I11.0 Hypertensive heart disease with heart failure; I50.32 Chronic diastolic (congestive) heart failure; I48.0 Paroxysmal atrial fibrillation; E78.00 Pure hypercholesterolemia, unspecified; G47.33 Obstructive sleep apnea (adult) (pediatric); E66.9 Obesity, unspecified; Z68.34 Body mass index [BMI] 34.0-34.9, adult; Z91.81 History of falling; Z20.822 Contact with and (suspected) exposure to COVID-19; Z86.73 Personal history of transient ischemic attack (TIA), and cerebral infarction without residual deficits; Z85.46 Personal history of malignant neoplasm of prostate; Z99.89 Dependence on other enabling machines and devices; Y93.9 Activity, unspecified; Y92.019 Unspecified place in single-family (private) house as the place of occurrence of the external cause; Y99.9 Unspecified external cause status; Z79.899 Other long term (current) drug therapy; Z79.02 Long term (current) use of antithrombotics/antiplatelets; Z79.01 Long term (current) use of anticoagulants
CPT/HCPCS: 0241U; 36415; 70450; 71250; 72125; 74176; 80048; 80053; 81001; 83735; 84484; 85025; 85027; 85379; 85610; 85730; 87086; 93306; 96360; 96361; 99219; 99285; Q9957

== ENCOUNTER 2022-04-12 09:13 | Day surgery (SDC) | payer MEDICARE, SELFPAY ==
[2022-04-06 13:06] VITALS: BMI 33.9
--- NOTE | 2022-04-11 10:47 | HO.ANESPROP2 ---
Documented by User: Asmita Manriquez NP 04/11/22 10:51 HPI - Anesthesia Eval Consult details Narrative: 82yo M for Cardioversion Eliquis for afib PMFSH Active Problems Active Problems: All Active Problems (Updated 04/06/22 @ 12:55 by Bambi Reese RN) Localized edema (Acute) Obstructive sleep apnea (Acute) Bilateral primary osteoarthritis of knee (Acute) Current use of GnRH antagonist (Acute) Anemia (Acute) Fatigue (Acute) Intertrigo (Acute) Diarrhea (Acute) JODI treated with BiPAP (Acute) Syncope (Acute) Obesity (BMI 30-39.9) (Acute) Osteoarthritis (Acute) Pure hypercholesterolemia (Acute) Prostate cancer (Acute) Erosive osteoarthritis (Acute) Gout (Acute) Psoriatic arthritis (Acute) Stented coronary artery (Acute) JODI on CPAP (Acute) Essential hypertension (Acute) Embolic stroke (Acute) PAF (paroxysmal atrial fibrillation) (Acute) Atherosclerotic cardiovascular disease (Acute) Past Medical History Medical History (Updated 04/06/22 @ 12:55 by Bambi Reese RN) Atherosclerotic cardiovascular disease Embolic stroke Erosive osteoarthritis Essential hypertension Gout History of cardioversion Obesity (BMI 30-39.9) JODI on CPAP Osteoarthritis PAF (paroxysmal atrial fibrillation) Prostate cancer Psoriatic arthritis Pure hypercholesterolemia Family History Family History Father No problems noted. Mother No problems noted. Family history of problems with anesthesia: No Surgical History Surgical History Hx of cardiac cath Hx of cholecystectomy Hx of colonoscopy Hx of eye surgery Stented coronary artery History of Problems with Anesthesia: No Social History Social History Housing: House Alcohol intake: never Patient Tobacco Use Status: Never used Tobacco Second Hand Smoke Exposure: No Use of substances other than those prescribed or required for medical reasons: No Are you DNR?: No Advance Directives: Yes Advance Directives on File: Yes Advance Directives Date on File: 03/28/22 service: No Current occupational status: retired Meds Allergies Allergy/AdvReac Type Severity Reaction Status Date / Time penicillin V Allergy Intermediate hives Verified 03/21/22 15:00 Home Medications Medication Instructions Recorded Confirmed Last Taken Type omeprazole 20 mg capsule,delayed 20 mg PO DAILY@0630 02/04/20 04/06/22 03/27/22 History release sertraline 25 mg tablet 25 mg PO DAILY 03/16/21 04/06/22 03/27/22 History donepezil 10 mg tablet 10 mg PO BEDTIME 05/23/21 04/06/22 03/26/22 History ascorbic acid (vitamin C) 500 mg 500 mg PO DAILY 03/27/22 04/06/22 03/27/22 History tablet (Vitamin C) atorvastatin 40 mg tablet 40 mg PO BEDTIME 03/27/22 04/06/22 03/26/22 History cholecalciferol (vitamin D3) 25 25 mcg PO DAILY 03/27/22 04/06/22 03/27/22 History mcg (1,000 unit) tablet (Vitamin D3) cyanocobalamin (vitamin B-12) 1,000 mcg PO DAILY 03/27/22 04/06/22 03/27/22 History 1,000 mcg tablet finasteride 5 mg tablet 5 mg PO DAILY@1200 03/27/22 04/06/22 03/26/22 History methotrexate sodium 2.5 mg tablet 4 tab PO CHARLES@0900,2100 03/27/22 04/06/22 03/25/22 History multivitamin 1 tab PO DAILY 03/27/22 04/06/22 03/27/22 History nystatin 100,000 unit/gram topical 1 appl topical TID PRN Rash 03/27/22 04/06/22 Unknown History powder (Nystop) nystatin-triamcinolone 100,000 1 appl topical BID PRN Rash 03/27/22 04/06/22 Unknown History unit/gram-0.1 % topical ointment omega-3 360 ks-diz-jtj-fish oil 1 cap PO BEDTIME 03/27/22 04/06/22 03/26/22 History 1,200 mg capsule,delayed release (Fish Oil) vitamin E 200 unit tablet 90 mg PO DAILY 03/27/22 04/06/22 03/27/22 History amlodipine 10 mg tablet 1 tab PO DAILY 04/06/22 04/06/22 Unknown History Exam Exam Date and Time: April 11, 2022 1047 Height,Weight and Vital Signs: Height 5 ft 10 in Weight 107.2 kg Pertinent Lab Results Pertinent Lab Results: Laboratory Tests 03/28/22 03/28/22 06:17 06:17 WBC 5.9 Hgb 11.4 L Hct 35.2 L Plt Count 170 Sodium 138 Potassium 3.7 Chloride 105 Carbon Dioxide 24 BUN 18 H Creatinine 0.89 Narrative Narrative: ECHO 03/2022 Conclusions: - Normal left ventricular size and systolic function. There is ? mildly increased left ventricular wall thickness.? The visually? estimated ejection fraction is between 60-65%. ? - Normal right ventricular cavity size.? There is borderline ? ? right ventricular systolic function. ? - Mildly elevated right atrial pressure.? Mild pulmonary ? hypertension is present. ? - There is mild dilatation of the sinuses of Valsalva measuring? 4.10 cm and mild dilatation of the ascending aorta measuring 4.10 cm.?? EKG 03/2022 atrial fibrillation at 68/Min; right bundle-branch block pattern Assessment and Plan Assessment Anesthesia Assessment: Chart Reviewed Final Anesthetic Review Family History of Problems with Anesthesia: No History of Problems with Anesthesia: No Documented by User: Marco Ferguson MD 04/12/22 10:44 [facility] Past Medical History Medical History (Updated 04/06/22 @ 12:55 by Bambi Reese RN) Atherosclerotic cardiovascular disease Embolic stroke Erosive osteoarthritis Essential hypertension Gout History of cardioversion Obesity (BMI 30-39.9) JODI on CPAP Osteoarthritis PAF (paroxysmal atrial fibrillation) Prostate cancer Psoriatic arthritis Pure hypercholesterolemia Family History Family History Father No problems noted. Mother No problems noted. Surgical History Surgical History Hx of cardiac cath Hx of cholecystectomy Hx of colonoscopy Hx of eye surgery Stented coronary artery Social History Social History Housing: House Alcohol intake: never Patient Tobacco Use Status: Never used Tobacco Second Hand Smoke Exposure: No Use of substances other than those prescribed or required for medical reasons: No Are you DNR?: No Advance Directives: Yes Advance Directives on File: Yes Advance Directives Date on File: 03/28/22 service: No Current occupational status: retired Meds Allergies Allergy/AdvReac Type Severity Reaction Status Date / Time penicillin V Allergy Intermediate hives Verified 03/21/22 15:00 Home Medications Medication Instructions Recorded Confirmed Last Taken Type omeprazole 20 mg capsule,delayed 20 mg PO DAILY@0630 02/04/20 04/06/22 03/27/22 History release sertraline 25 mg tablet 25 mg PO DAILY 03/16/21 04/06/22 03/27/22 History donepezil 10 mg tablet 10 mg PO BEDTIME 05/23/21 04/06/22 03/26/22 History ascorbic acid (vitamin C) 500 mg 500 mg PO DAILY 03/27/22 04/06/22 03/27/22 History tablet (Vitamin C) atorvastatin 40 mg tablet 40 mg PO BEDTIME 03/27/22 04/06/22 03/26/22 History cholecalciferol (vitamin D3) 25 25 mcg PO DAILY 03/27/22 04/06/22 03/27/22 History mcg (1,000 unit) tablet (Vitamin D3) cyanocobalamin (vitamin B-12) 1,000 mcg PO DAILY 03/27/22 04/06/22 03/27/22 History 1,000 mcg tablet finasteride 5 mg tablet 5 mg PO DAILY@1200 03/27/22 04/06/22 03/26/22 History methotrexate sodium 2.5 mg tablet 4 tab PO CHARLES@0900,2100 03/27/22 04/06/22 03/25/22 History multivitamin 1 tab PO DAILY 03/27/22 04/06/22 03/27/22 History nystatin 100,000 unit/gram topical 1 appl topical TID PRN Rash 03/27/22 04/06/22 Unknown History powder (Nystop) nystatin-triamcinolone 100,000 1 appl topical BID PRN Rash 03/27/22 04/06/22 Unknown History unit/gram-0.1 % topical ointment omega-3 360 nb-jec-cwu-fish oil 1 cap PO BEDTIME 03/27/22 04/06/22 03/26/22 History 1,200 mg capsule,delayed release (Fish Oil) vitamin E 200 unit tablet 90 mg PO DAILY 03/27/22 04/06/22 03/27/22 History amlodipine 10 mg tablet 1 tab PO DAILY 04/06/22 04/06/22 Unknown History Exam Airway Mallampati Class: II TM Dist: >3cm Denture: Upper and Lower Loose/Missing/Broken Teeth: Yes Assessment and Plan Assessment Anesthesia Assessment: Anesthesia Plan Discussed Final Anesthetic Review NPO: Yes ASA Class: III Final Preanesthetic Review: No Changes in Pt Med Stat, Meds/Allgs Chart Reviewed, Consent Obtained/Reviewed and Anes Risks/Benef Reviewed Patient Risk: Intermediate Procedure Risk: Low Anesthetic Plan Anesthetic Plan: MAC: Disposition: Standard PACU
--- NOTE | 2022-04-12 10:02 | MHC.SHP ---
Pre-Procedural Eval Section A Date of Service: 04/12/22 The patient is an INPATIENT: No Section B Chief Complaint: afib Allergies: Allergies Allergy/AdvReac Type Severity Reaction Status Date / Time penicillin V Allergy Intermediate hives Verified 03/21/22 15:00 Plan I have reviewed the history and physical and performed a pertinent physical examination on my patient. No changes have occurred unless specified. Time Spent With Patient Time: Total time managing care of this patient today ____ minutes.
--- NOTE | 2022-04-12 10:03 | HO.CARDIVERS ---
Cardioversion Procedure Note Cardioversion Date of Procedure: 04/12/2022 Ordering Provider: Dr. Bean Performing Provider: Dr. Bean Indication for Procedure: Symptomatic atrial fibrillation Pre-Op Diagnosis: Atrial fibrillation controlled ventricular rate Post-Op Diagnosis: Sinus rhythm BYRON findings (if BYRON Performed): Not performed History: See office consultation Consent: Informed consent obtained Procedure: After informed consent was obtained, patient was taken to the PACU. The patient was then positioned appropriately. The cardioversion pads were placed in anteroposterior position. Once under anesthesia, 120 joules of synchronized shock was administered. The rhythm converted from atrial fibrillation to sinus rhythm. Patient remained in sinus rhythm after the end of procedure. Complications: None Impression: Successful cardioversion from atrial fibrillation to sinus rhythm Recommendations: Obtain EKG. Continue amiodarone. Continue anticoagulation. Will arrange office follow-up.
[2022-04-12 10:13] VITALS: BP 126/68; PULSE 73; RESP 16; TEMP 36.1; O2SAT 98
[2022-04-12] MEDS: Lactated Ringers 1,000 ML 50 ML IVCONT (10:16)
--- NOTE | 2022-04-12 11:23 | ECG_ITS ---
Test Reason : post cardioversion Blood Pressure : / mmHG Vent. Rate : 045 BPM Atrial Rate : 045 BPM P-R Int : 220 ms QRS Dur : 094 ms QT Int : 472 ms P-R-T Axes : 093 001 -15 degrees QTc Int : 408 ms Sinus bradycardia with 1st degree A-V block with Premature atrial complexes with Aberrant conduction Inferior-posterior infarct , age undetermined Abnormal ECG When compared with ECG of 27-FEB-2022 11:20, Aberrant conduction is now Present Right bundle branch block is no longer Present Inferior-posterior infarct is now Present Referred By: Donn Ardon Electronically Signed By:DONN ARDON
[2022-04-12 11:29] VITALS: BP 116/56; PULSE 47; RESP 11; TEMP 36.5; O2SAT 98
[2022-04-12 11:34] VITALS: BP 109/53; PULSE 48; RESP 12; O2SAT 100
[2022-04-12 11:39] VITALS: BP 103/56; PULSE 50; RESP 16; O2SAT 100
[2022-04-12 11:44] VITALS: BP 106/57; PULSE 50; RESP 16; TEMP 36.4; O2SAT 100
[2022-04-12 11:59] VITALS: BP 120/58; PULSE 51; RESP 16; TEMP 36.4; O2SAT 100
== END 2022-04-12 12:35 | disposition home or self-care (01) ==
PROVIDERS: PCP Internal Medicine; Visit Provider Internal Medicine
PROC: 5A2204Z Restoration of Cardiac Rhythm, Single (ICD-10-PCS; principal; 2022-04-12 10:30)
DX: I48.19 Other persistent atrial fibrillation (principal); G47.33 Obstructive sleep apnea (adult) (pediatric); I48.0 Paroxysmal atrial fibrillation; I10 Essential (primary) hypertension; I25.10 Atherosclerotic heart disease of native coronary artery without angina pectoris; Z98.61 Coronary angioplasty status; E78.00 Pure hypercholesterolemia, unspecified; E66.9 Obesity, unspecified; Z68.33 Body mass index [BMI] 33.0-33.9, adult; L40.50 Arthropathic psoriasis, unspecified; C61 Malignant neoplasm of prostate; Z79.01 Long term (current) use of anticoagulants; Z79.899 Other long term (current) drug therapy; Z99.89 Dependence on other enabling machines and devices; Z88.0 Allergy status to penicillin; Z86.73 Personal history of transient ischemic attack (TIA), and cerebral infarction without residual deficits
CPT/HCPCS: 92960; 93005

== ENCOUNTER → 2022-04-19 11:05 | Outpatient (BNVA) | payer MEDICARE, SELFPAY | PROVIDERS: PCP Internal Medicine; Referring Provider Internal Medicine; Visit Provider Internal Medicine | DX: I48.0 Paroxysmal atrial fibrillation (principal); I25.10 Atherosclerotic heart disease of native coronary artery without angina pectoris; I10 Essential (primary) hypertension; I63.40 Cerebral infarction due to embolism of unspecified cerebral artery; R60.0 Localized edema; G47.33 Obstructive sleep apnea (adult) (pediatric); Z99.89 Dependence on other enabling machines and devices | CPT/HCPCS: 93005; 99212 ==

== ENCOUNTER → 2022-05-14 11:26 | Outpatient (BNVA) | payer MEDICARE, SELFPAY | PROVIDERS: PCP Internal Medicine; Visit Provider Nurse Practitioner Family | DX: G47.33 Obstructive sleep apnea (adult) (pediatric) (principal); I48.19 Other persistent atrial fibrillation | CPT/HCPCS: 99212 ==

== ENCOUNTER 2022-05-15 11:13 | Outpatient (REF) | payer MEDICARE, SELFPAY ==
--- NOTE | ~2022-05-15 | XR_ITS ---
EXAMINATION: XR LUMBOSACRAL SPINE CLINICAL INFORMATION: Low back pain COMPARISON: None TECHNIQUE: Three views of the lumbosacral spine. FINDINGS: There is normal lumbar lordosis. The vertebral heights and alignment is normal. There is loss of disc height virtually at every disc level with ventral and lateral spondylosis. No aggressive lytic or sclerotic process seen. SI joints are symmetrical. Paravertebral soft tissues are normal. XR/XR lumbar spine 2-3V IMPRESSION: Degenerative disc changes with spondylosis throughout lumbar spine. No visible acute fracture, dislocation or lytic process seen.
[2022-05-15 11:46] LABS: MANUAL DIFF FLAG NO
[2022-05-15 11:59] LABS: Basophils Absolute Auto 0.1 X10*3/uL (0.0-0.2); Basophils Percent Auto 1.2 % (0-2); Eosinophils Absolute Auto 0.1 X10*3/uL (0.0-0.4); Eosinophils Percent Auto 1.7 % (0-4); Hematocrit 39.3 % (42.0-52.0); Hemoglobin 12.9 g/dl (14.0-18.0); Lymphocytes Absolute Auto 0.6 X10*3/uL (1.2-4.9); Lymphocytes Percent Auto 14.7 % (20-40); Mean Corpuscular HGB Conc 32.8 g/dl (31.0-36.0); Mean Corpuscular Hemoglobin 31.5 pg (27.0-33.0); Mean Corpuscular Volume 96.1 fL (80.0-98.0); Mean Platelet Volume 10.5 fL (9.4-12.4); Monocytes Absolute Auto 0.2 X10*3/uL (0.1-1.2); Monocytes Percent Auto 5.5 % (2-11); Neutrophils Absolute Auto 3.2 x10*3/uL (2.0-8.3); Neutrophils Percent Auto 76.9 % (45-73); Platelet Count 209 X10*3/uL (160-400); Red Blood Count 4.09 X10*6/uL (4.60-5.80); Red Cell Distribution Width 16.8 % (11.0-16.0); White Blood Count 4.2 X10*3/uL (4.8-10.8)
[2022-05-15 12:19] LABS: Appearance Urine Turbid; Color Urine Yellow; Glucose Urine UA Negative (Negative); Leukocyte Esterase Urine Large (3+) (Negative); Nitrite Urine Negative (Negative); PH 7.5 (5.0-9.0); Specific Gravity - Urine 1.015 (1.005-1.025); UMIC TRIGGER UACC YES; Urine Blood Moderate (2+) (Negative); Urine Ketones Negative (Negative); Urine Protein Trace mg/dL (Neg-Trace)
[2022-05-15 12:30] LABS: Bacteria Urine 1+ (None Seen); Calcium Oxalate Crystals Urine Present; Other Crystals Urine Present; RBC Urine >20 /HPF (0-2); UACC Culture Trigger YES; WBC Urine >50 /HPF (0-5)
[2022-05-15 12:32] LABS: Iron 198 mcg/dL (45-160); Percent Iron Saturation 63 % (15-50); Total Iron Binding Capacity 314 mcg/dL (228-428); Unsaturated Iron Binding 116 ug/dL; Uric Acid 3.5 mg/dL (3.4-7.0)
[2022-05-15 12:35] LABS: Alanine Aminotransferase 31 U/L (0-40); Albumin Level 3.9 g/dL (3.5-5.0); Alkaline Phosphatase 106 U/L (39-117); Anion Gap 16 (12-20); Aspartate Amino Transferase 28 U/L (5-37); Bilirubin Total 0.7 mg/dL (0.0-1.0); Blood Urea Nitrogen 14 mg/dL (9-16); Calcium 9.1 mg/dL (8.4-10.2); Carbon Dioxide 24 mmol/L (22-29); Chloride 107 mmol/L (96-108); Cholesterol 124 mg/dL; Estimated Glomerular Filt Rate > 60; Glucose Fasting 116 mg/dL (60-99); HDL Cholesterol 43 mg/dL; LDL Cholesterol Calculated 61 mg/dl; Potassium 4.1 mmol/L (3.3-5.1); Sodium 143 mmol/L (135-145); Total Protein 6.1 g/dL (6.5-8.0); Triglycerides 104 mg/dL
[2022-05-15 12:44] LABS: TSH reflex Free T4 1.75 uIU/mL (0.32-4.0); Vitamin D 25-OH Total 42.4 ng/mL (>30)
[2022-05-15 12:49] LABS: Ferritin 84 ng/mL (20-250)
[2022-05-15 13:05] LABS: Folate > 20.0 ng/mL (> or = 4.0); Prostate Specific Antigen 2.09 ng/mL (<0.05-4.0); Vitamin B12 1639 pg/mL (200-900)
== END 2022-05-15 11:14 | disposition home or self-care (01) ==
LOC: HO.XRAY 11:13
PROVIDERS: Absent Provider Urology; PCP Internal Medicine; Visit Provider Nurse Practitioner Family
DX: Z12.5 Encounter for screening for malignant neoplasm of prostate (principal); M54.50 Low back pain, unspecified; M10.9 Gout, unspecified; D64.9 Anemia, unspecified; C61 Malignant neoplasm of prostate; E55.9 Vitamin D deficiency, unspecified; I10 Essential (primary) hypertension; E78.00 Pure hypercholesterolemia, unspecified; R82.90 Unspecified abnormal findings in urine
CPT/HCPCS: 36415; 72100; 80053; 80061; 81001; 82306; 82607; 82728; 82746; 83540; 84153; 84443; 84550; 85025; 87086

== ENCOUNTER → 2022-05-17 10:20 | Outpatient (BNVA) | payer MEDICARE, SELFPAY | PROVIDERS: PCP Internal Medicine; Visit Provider Nurse Practitioner Family | DX: C61 Malignant neoplasm of prostate (principal); L40.50 Arthropathic psoriasis, unspecified; M54.50 Low back pain, unspecified; M1A.00X0 Idiopathic chronic gout, unspecified site, without tophus (tophi); M15.4 Erosive (osteo)arthritis; M17.0 Bilateral primary osteoarthritis of knee; D64.9 Anemia, unspecified | CPT/HCPCS: 99212; Q3014 ==

== ENCOUNTER → 2022-07-09 20:56 | Outpatient (REF) | payer MEDICARE, SELFPAY | LOC: HO.SL 20:56 | PROVIDERS: Visit Provider Nurse Practitioner Family | DX: G47.33 Obstructive sleep apnea (adult) (pediatric) (principal); I48.91 Unspecified atrial fibrillation; E66.9 Obesity, unspecified; I10 Essential (primary) hypertension; I25.10 Atherosclerotic heart disease of native coronary artery without angina pectoris | CPT/HCPCS: 95811 ==

== ENCOUNTER → 2022-07-16 14:06 | Outpatient (BNVA) | payer MEDICARE, SELFPAY | PROVIDERS: PCP Internal Medicine; Referring Provider Internal Medicine; Visit Provider Internal Medicine | DX: I48.0 Paroxysmal atrial fibrillation (principal); I25.10 Atherosclerotic heart disease of native coronary artery without angina pectoris; I10 Essential (primary) hypertension; R60.0 Localized edema; G47.33 Obstructive sleep apnea (adult) (pediatric); Z86.73 Personal history of transient ischemic attack (TIA), and cerebral infarction without residual deficits; Z79.01 Long term (current) use of anticoagulants; Z79.899 Other long term (current) drug therapy; Z99.89 Dependence on other enabling machines and devices | CPT/HCPCS: 93005; 99212 ==

== ENCOUNTER 2022-09-26 06:30 | Outpatient (REF) | payer MEDICARE, SELFPAY | END 2022-09-26 06:31 | disposition home or self-care (01) | LOC: HO.MMNH1L 06:30 | PROVIDERS: Visit Provider Family Medicine | DX: Z13.89 Encounter for screening for other disorder (principal) | CPT/HCPCS: 87086 ==

== ENCOUNTER 2022-10-07 17:52 | Emergency (ER) | payer MEDICARE, SELFPAY ==
[2022-10-07] VITALS (11 sets, daily range): BP systolic 90–151; BP diastolic 47–73; PULSE 64–87; RESP 12–16; TEMP 36.4–37.2; O2SAT 97–100; BMI 33.9
--- NOTE | 2022-10-07 18:30 | PC.NURSE ---
alert&orientedx3, vss, pt has a hx of afib but showing nsr on the hall monitor, pt brought in by ems for upper left quadrant pain, pt states having more chest pain rated at a 5/10 rather than abdominal pain, hyperactive bs noted upon auscultation, pt denies tenderness upon palpation but hard knot-like notch felt at the midsternum area and states that he has never noticed/felt that there before, pt denies pain in that region,will continue to monitor
--- NOTE | 2022-10-07 19:06 | PC.NURSE ---
assumed care of patient at 1900 - pt resting comfortably on stretcher with at bedside. pt on conveyor monitor NSR. pt reports midsternal/epigastric chest pains radiating to LUQ. will order protocol labs. ekg done. pt waiting to be seen by ED provider. call [place] within reach will CTM
--- NOTE | 2022-10-07 19:25 | MHC.EDTECH ---
PATIENT VITALS SIGN TAKEN ,BLOOD DRAWN AND URINE SAMPLE COLLECTED AND SENT TO LAB ,PT VITALS ARE STABLE ,PT AT BEDSIDE ,PT RESTING IN BED .
[2022-10-07 19:53] LABS: Alanine Aminotransferase 17 U/L (0-40); Albumin Level 3.2 g/dL (3.5-5.0); Alkaline Phosphatase 98 U/L (39-117); Anion Gap 15 (12-20); Aspartate Amino Transferase 26 U/L (5-37); Bilirubin Direct 0.3 mg/dL (0.0-0.5); Bilirubin Total 0.8 mg/dL (0.0-1.0); Blood Urea Nitrogen 12 mg/dL (9-16); Calcium 8.8 mg/dL (8.4-10.2); Carbon Dioxide 22 mmol/L (22-29); Chloride 106 mmol/L (96-108); Creatinine Clr Calc Pharmacy 68.1; Estimated Glomerular Filt Rate > 60; Glucose Random 101 mg/dL (60-115); Lipase 34 U/L (8-78); Potassium 3.8 mmol/L (3.3-5.1); Sodium 139 mmol/L (135-145); Total Protein 6.2 g/dL (6.5-8.0)
--- NOTE | 2022-10-07 20:07 | ED.GENADULT ---
HPI - General Adult General Chief complaint: Abdominal Pain Stated complaint: ULQ PAIN X 30MINS Time Seen by Provider: 10/07/22 19:52 Source: patient and family Mode of arrival: EMS Limitations: no limitations History of Present Illness HPI narrative: Patient comes to the emergency room via ambulance from [facility]. Patient complaining of a combination of chest pain and abdominal pain. Patient has history of dementia and is is a poor historian. Patient's is at bedside, explaining that the patient has been having chest pain since approximately 4 hours ago. When patient asked where he has pain, he points towards the chest and the abdomen . Patient's explains that patient has been in rehab for 6 weeks. Patient was diagnosed initially with COVID, and since then, patient has been gradually declining, becoming weaker, and has fallen 4 times over the last 6 weeks. To patient's 's knowledge, he has not had any recent falls. Also, patient had 2 UTIs fall he was in rehab. Patient suddenly started crying, when I asked what is wrong, patient looks at his then asks her what is wrong with him Related Data Home Medications Medication Instructions Recorded Confirmed omeprazole 20 mg capsule,delayed 20 mg PO DAILY@0630 02/04/20 07/16/22 release ascorbic acid (vitamin C) 500 mg 500 mg PO DAILY 03/27/22 07/16/22 tablet (Vitamin C) cholecalciferol (vitamin D3) 25 25 mcg PO DAILY 03/27/22 07/16/22 mcg (1,000 unit) tablet (Vitamin D3) cyanocobalamin (vitamin B-12) 1,000 mcg PO DAILY 03/27/22 07/16/22 1,000 mcg tablet multivitamin 1 tab PO DAILY 03/27/22 07/16/22 nystatin 100,000 unit/gram topical 1 appl topical TID PRN Rash 03/27/22 07/16/22 powder (Nystop) nystatin-triamcinolone 100,000 1 appl topical BID PRN Rash 03/27/22 07/16/22 unit/gram-0.1 % topical ointment omega-3 360 vw-mlr-xqy-fish oil 1 cap PO BEDTIME 03/27/22 07/16/22 1,200 mg capsule,delayed release (Fish Oil) vitamin E 200 unit tablet 90 mg PO DAILY 03/27/22 07/16/22 ammonium lactate 12 % topical cream appl topical BID 05/17/22 07/16/22 potassium chloride 20 mEq 40 meq PO QID 07/16/22 07/16/22 tablet,extended release sertraline 50 mg tablet 50 mg PO DAILY 07/16/22 07/16/22 Previous Rx's Medication Instructions Recorded folic acid 1 mg tablet 1 mg PO DAILY #90 tabs 11/15/21 nitroglycerin 0.4 mg sublingual 0.4 mg sublingual Q5M PRN chest 01/11/22 tablet pain #30 tabs ROLLATOR (with seat) - XL #1 ea 04/13/22 TOILET SAFETY RAILS (both sides) #1 ea 04/13/22 finasteride 5 mg tablet 5 mg PO DAILY 90 days #90 tabs 05/03/22 methotrexate sodium 2.5 mg tablet 20 mg PO QWEEK #96 tabs 05/17/22 allopurinol 100 mg tablet 100 mg PO DAILY #90 tabs 06/29/22 amiodarone 200 mg tablet 200 mg PO DAILY #90 tabs 07/02/22 amlodipine 10 mg tablet 10 mg PO DAILY #90 tabs 07/02/22 apixaban 5 mg tablet (Eliquis) 5 mg PO BID #180 tabs 07/16/22 gabapentin 400 mg capsule 400 mg PO BEDTIME 90 days #90 caps 07/20/22 atorvastatin 40 mg tablet 40 mg PO BEDTIME 90 days #90 tabs 07/26/22 furosemide 40 mg tablet 40 mg PO DAILY 90 days #90 tabs 07/26/22 cefuroxime axetil 500 mg tablet 500 mg PO BID #14 tabs 10/08/22 Allergies Allergy/AdvReac Type Severity Reaction Status Date / Time penicillin V Allergy Intermediate hives Verified 07/16/22 14:19 Review of Systems Review of Systems: Constitutional : No Weight loss, No Fever, No Chills, No Night Sweats, No Fatigue, No Malaise ENT/Mouth : No Hearing loss, No Ear Pain, No Nasal Congestion, No Sinus Pain, No Hoarseness, No sore throat, No Rhinorrhea, No Swallowing Difficulty Eyes: No Eye Pain, No Swelling, No Redness, No Foreign Body, No Discharge, No Vision Changes Cardiovascular : No Chest Pain, No SOB, No Dyspnea on Exertion, No Orthopnea, No Edema, No Palpitations Respiratory : No Cough, No Sputum, No Wheezing, No Smoke Exposure, No Dyspnea Gastrointestinal : No Nausea, No Vomiting, No Diarrhea, No Constipation, No abdominal Pain, No Hematochezia, No Melena Genitourinary : no irregular bleeding, No Dysuria, No Urinary Frequency, No Hematuria, No Urinary Incontinence, No Urgency, No Flank Pain, No Urinary Flow Changes, No Hesitancy Musculoskeletal : No joint pain, No Myalgias, No Joint Swelling Skin : No Skin Lesions, No rash Neuro : No Weakness, No Numbness, No Paresthesias, No Loss of Consciousness, No Dizziness, No Headache Psych : No Anxiety/Panic, No Depression, No SI/HI/AH/VH, No Social Issues, Heme/Lymph: No Bruising, No Bleeding,No Lymphadenopathy Endocrine : No Polyuria, No Polydipsia, No Temperature Intolerance PMFSH Past Medical History Medical History Atherosclerotic cardiovascular disease Dementia with behavioral disturbance Embolic stroke Erosive osteoarthritis Essential hypertension Gout History of cardioversion Obesity (BMI 30-39.9) JODI on CPAP Osteoarthritis PAF (paroxysmal atrial fibrillation) Prostate cancer Psoriatic arthritis Pure hypercholesterolemia Surgical History Hx of cardiac cath Hx of cholecystectomy Hx of colonoscopy Hx of eye surgery Stented coronary artery Family History Family History Father No problems noted. Mother No problems noted. Social History Social History Housing: House Alcohol intake: never Patient Tobacco Use Status: Never used Tobacco Smoked in Last 30 Days: No Second Hand Smoke Exposure: No Use of substances other than those prescribed or required for medical reasons: No Advance Directives: Yes Advance Directives on File: Yes Advance Directives Date on File: 03/28/22 service: No Current occupational status: retired Cognitive needs: No Hearing needs: No Vision needs: No Physical Exam ED Vital Signs: Vital Signs - 24 hr 10/07/22 18:05 10/07/22 18:29 10/07/22 19:18 Temperature 97.7 F 97.7 F 98.9 F Pulse Rate 65 67 73 Respiratory Rate 13 16 Blood Pressure 121/56 L 128/56 L 132/66 Pulse Oximetry 100 100 98 Oxygen Delivery Method Room Air Room Air Room Air 10/07/22 21:07 10/07/22 21:07 10/07/22 21:08 Temperature Pulse Rate 71 71 87 Respiratory Rate Blood Pressure 139/73 139/61 119/49 L Pulse Oximetry Oxygen Delivery Method 10/07/22 22:00 10/07/22 23:32 10/07/22 23:36 Temperature 98.2 F 97.6 F Pulse Rate 67 66 66 Respiratory Rate 16 12 Blood Pressure 151/52 H 109/49 L 116/53 L Pulse Oximetry 97 100 Oxygen Delivery Method Room Air Room Air 10/07/22 23:37 10/07/22 23:39 Temperature Pulse Rate 72 80 Respiratory Rate Blood Pressure 107/47 L 90/47 L Pulse Oximetry Oxygen Delivery Method BMI result Body Mass Index 33.9 Const Other: Appearance: Alert. Oriented X2. No acute distress. Eyes: Pupils equal, round and reactive to light. ENT: Pharynx normal. Neck: Normal inspection. Neck supple. No lymph nodes noted. No crepitus CVS: Normal heart rate and rhythm. Pulses normal. Normal S1 and S2 Respiratory: No respiratory distress. Breath sounds normal. No Wheezing. No rales Abdomen: Soft and nontender. No rigidity. No distention. Skin: Skin warm and dry. Normal skin color. Normal skin turgor. Extremities: No lower extremity edema. No Lacerations. No Rash Neuro: Oriented X2. No motor deficit. No sensory deficit. Moving all extremities. No slurred speech. CN 2 through 12 grossly intact Psych: calm, cooperative, teary Medications Administered Discontinued Medications Generic Name Dose Route Start Last Admin Trade Name Freq PRN Reason Stop Dose Admin Sodium Chloride 1,000 mls @ 999 mls/hr 10/07/22 21:25 10/07/22 23:02 Ns IVCONT 10/07/22 22:25 Infused .Q1H1M ONE Infusion Ceftriaxone Sodium 1 gm/ 50 mls @ 100 mls/hr 10/07/22 21:45 10/07/22 22:32 Sodium Chloride IV 10/07/22 22:14 Infused ONCE ONE Infusion Medical Decision Making Medical Decision Making MDM Narrative: Patient coming with chest pain, abdominal pain, considering admission. Workup pending -patient's troponin 31 Was 31.3, repeat troponin 28.8 -mention the patient EKG: Normal sinus rhythm, rate 74, was a pressure elevation, T-wave inversion. Patient does not have a wide QRS complexes -23:50, patient does not have any chest pain or shortness of breath -patient's orthostatic vitals were positive, patient given 1 L of fluids -after 1 L of fluids, patient's orthostatics were negative, patient did not have any lightheadedness or weakness. -patient was given 1 dose of IV ceftriaxone. Patient will continue p.o. cefuroxime, sepsis not suspected -my interpretation of labs, LFTs normal, lipase normal, white blood cell count normal. -patient had several physical abdominal exams, patient is not tender in any of the quadrants, patient denies any chest pain Differential Diagnosis Differential Diagnoses: The differential diagnosis associated with the presentation includes (UTI, dementia, decompensation) Admission/Observation Consideration of admission/observation: Escalation of care including admission/observation considered Lab Data MDM Lab Attestation statement: I reviewed the patient's lab results. (Lipase normal, LFTs normal) 10/07/22 19:24 10/07/22 19:24 Labs: Lab Results 10/07/22 10/07/22 10/07/22 Range/Units 19:24 19:24 19:24 WBC 6.3 (4.8-10.8) X10*3/uL RBC 3.31 L D (4.60-5.80) X10*6/uL Hgb 10.5 L D (14.0-18.0) g/dl Hct 31.8 L (42.0-52.0) % MCV 96.1 (80.0-98.0) fL MCH 31.7 (27.0-33.0) pg MCHC 33.0 (31.0-36.0) g/dl RDW 16.3 H (11.0-16.0) % Plt Count 292 (160-400) X10*3/uL MPV 9.5 (9.4-12.4) fL Immature Gran % (Auto) 0.2 (0.0-0.4) % Neut % (Auto) 66.8 (45-73) % Lymph % (Auto) 18.0 L (20-40) % [place] % (Auto) 12.8 H (2-11) % Eos % (Auto) 1.4 (0-4) % Baso % (Auto) 0.8 (0-2) % Lymph # (Auto) 1.1 L (1.2-4.9) X10*3/uL [place] # (Auto) 0.8 (0.1-1.2) X10*3/uL Eos # (Auto) 0.1 (0.0-0.4) X10*3/uL Baso # (Auto) 0.1 (0.0-0.2) X10*3/uL Abs Immat Gran (auto) 0.01 (0.00-0.03) X10*3/uL Absolute Neuts (auto) 4.2 (2.0-8.3) x10*3/uL Absolute Nucleated RBC 0.000 (0.0-0.012) X10*3/uL Nucleated RBC % (auto) 0.0 (0.0-0.2) /100WBC Sodium 139 (135-145) mmol/L Potassium 3.8 (3.3-5.1) mmol/L Chloride 106 (96-108) mmol/L Carbon Dioxide 22 (22-29) mmol/L Anion Gap 15 (12-20) BUN 12 (9-16) mg/dL Creatinine 0.96 (0.5-1.4) mg/dL Estim Creat Clear Calc 68.1 Estimated GFR > 60 Random Glucose 101 (60-115) mg/dL Calcium 8.8 (8.4-10.2) mg/dL Total Bilirubin 0.8 (0.0-1.0) mg/dL Direct Bilirubin 0.3 (0.0-0.5) mg/dL AST 26 (5-37) U/L ALT 17 (0-40) U/L Alkaline Phosphatase 98 (39-117) U/L Troponin I High Sens 31.3 D (<3.5-35.0) ng/L Total Protein 6.2 L (6.5-8.0) g/dL Albumin 3.2 L (3.5-5.0) g/dL Lipase 34 (8-78) U/L Urine Color Urine Appearance Urine pH (5.0-9.0) Ur Specific [place] (1.005-1.025) Urine Protein (Neg-Trace) mg/dL Urine Glucose (UA) (Negative) mg/dL Urine Ketones (Negative) mg/dL Urine Blood (Negative) Urine Nitrite (Negative) Ur Leukocyte Esterase (Negative) Urine RBC (0-2) /HPF Urine WBC (0-5) /HPF Ur Squamous Epith Cells (0-2) /HPF Calcium Oxalate Crystal Urine Bacteria (None Seen) Hyaline Casts (0-2) /LPF 10/07/22 10/07/22 Range/Units 19:24 22:07 WBC (4.8-10.8) X10*3/uL RBC (4.60-5.80) X10*6/uL Hgb (14.0-18.0) g/dl Hct (42.0-52.0) % MCV (80.0-98.0) fL MCH (27.0-33.0) pg MCHC (31.0-36.0) g/dl RDW (11.0-16.0) % Plt Count (160-400) X10*3/uL MPV (9.4-12.4) fL Immature Gran % (Auto) (0.0-0.4) % Neut % (Auto) (45-73) % Lymph % (Auto) (20-40) % [place] % (Auto) (2-11) % Eos % (Auto) (0-4) % Baso % (Auto) (0-2) % Lymph # (Auto) (1.2-4.9) X10*3/uL [place] # (Auto) (0.1-1.2) X10*3/uL Eos # (Auto) (0.0-0.4) X10*3/uL Baso # (Auto) (0.0-0.2) X10*3/uL Abs Immat Gran (auto) (0.00-0.03) X10*3/uL Absolute Neuts (auto) (2.0-8.3) x10*3/uL Absolute Nucleated RBC (0.0-0.012) X10*3/uL Nucleated RBC % (auto) (0.0-0.2) /100WBC Sodium (135-145) mmol/L Potassium (3.3-5.1) mmol/L Chloride (96-108) mmol/L Carbon Dioxide (22-29) mmol/L Anion Gap (12-20) BUN (9-16) mg/dL Creatinine (0.5-1.4) mg/dL Estim Creat Clear Calc Estimated GFR Random Glucose (60-115) mg/dL Calcium (8.4-10.2) mg/dL Total Bilirubin (0.0-1.0) mg/dL Direct Bilirubin (0.0-0.5) mg/dL AST (5-37) U/L ALT (0-40) U/L Alkaline Phosphatase (39-117) U/L Troponin I High Sens 28.8 (<3.5-35.0) ng/L Total Protein (6.5-8.0) g/dL Albumin (3.5-5.0) g/dL Lipase (8-78) U/L Urine Color Yellow Urine Appearance Cloudy Urine pH 6.0 (5.0-9.0) Ur Specific [place] 1.015 (1.005-1.025) Urine Protein 30 (1+) H (Neg-Trace) mg/dL Urine Glucose (UA) Negative (Negative) mg/dL Urine Ketones Negative (Negative) mg/dL Urine Blood Small (1+) H (Negative) Urine Nitrite Negative (Negative) Ur Leukocyte Esterase Large (3+) H (Negative) Urine RBC 3-5 H (0-2) /HPF Urine WBC 11-20 (0-5) /HPF Ur Squamous Epith Cells 0-2 (0-2) /HPF Calcium Oxalate Crystal Present Urine Bacteria Trace (None Seen) Hyaline Casts 3-5 (0-2) /LPF Critical Care Time Critical Care Time Critical Care Time: Yes Total Critical Care Time: 30 Attestation: I have personally provided critical care time. Time includes review of lab data, radiology results, discussion with consultants, and monitoring for potential decompensation. Intervention performed as documented. Discharge Plan Discharge Clinical Impression: Acute UTI, Orthostatic hypotension Patient Disposition: Home, Self-Care Instructions: Urinary Tract Infection in Men (ED) Additional Instructions: Please follow-up with your primary care physician tomorrow. If you have any worsening or new symptoms, please return to the emergency room or call 911 Prescriptions: New cefuroxime axetil 500 mg tablet 500 mg PO BID Qty: 14 0RF No Action folic acid 1 mg tablet 1 mg PO DAILY Qty: 90 3RF nitroglycerin 0.4 mg tablet, sublingual 0.4 mg sublingual Q5M PRN (Reason: chest pain) Qty: 30 5RF Rx Instructions: do not exceed 3 doses per episode finasteride 5 mg tablet 5 mg PO DAILY 90 Days Qty: 90 1RF allopurinol 100 mg tablet 100 mg PO DAILY Qty: 90 1RF amlodipine 10 mg tablet 10 mg PO DAILY Qty: 90 3RF amiodarone 200 mg tablet 200 mg PO DAILY Qty: 90 3RF Eliquis 5 mg tablet 5 mg PO BID Qty: 180 3RF gabapentin 400 mg capsule 400 mg PO BEDTIME 90 Days Qty: 90 1RF furosemide 40 mg tablet 40 mg PO DAILY 90 Days Qty: 90 3RF atorvastatin 40 mg tablet 40 mg PO BEDTIME 90 Days Qty: 90 3RF multivitamin Tablet 1 tab PO DAILY cyanocobalamin (vitamin B-12) 1,000 mcg Tablet 1,000 mcg PO DAILY nystatin-triamcinolone 100,000-0.1 unit/gram-% ointment 1 appl topical BID PRN (Reason: Rash) Rx Instructions: apply to folds on legs ascorbic acid (vitamin C) [Vitamin C] 500 mg Tablet 500 mg PO DAILY vitamin E 200 unit Tablet 90 mg PO DAILY cholecalciferol (vitamin D3) [Vitamin D3] 25 mcg (1,000 unit) Tablet 25 mcg PO DAILY omega 5-orw-gki-fish oil [Fish Oil] 360-1,200 mg Capsule,Delayed Release(Dr/Ec) 1 cap PO BEDTIME nystatin [Nystop] 100,000 unit/gram powder 1 appl topical TID PRN (Reason: Rash) Rx Instructions: apply to folds on legs (DME) TOILET SAFETY RAILS (both sides) See Rx Instructions .Route .MEDSUPPLY Qty: 1 0RF Rx Instructions: As directed (DME) ROLLATOR (with seat) - XL XL See Rx Instructions .Route .MEDSUPPLY Qty: 1 0RF Rx Instructions: As directed omeprazole 20 mg capsule,delayed release(DR/EC) 20 mg PO DAILY@0630 methotrexate sodium 2.5 mg tablet 20 mg PO QWEEK Qty: 96 0RF ammonium lactate 12 % cream topical BID sertraline 50 mg tablet 50 mg PO DAILY potassium chloride 20 mEq tablet extended release 40 meq PO QID
--- NOTE | 2022-10-07 21:12 | MHC.EDTECH ---
PATIENT ORTOSTATICS VITALS SIGN TAKEN ,THEN BACK IN BED ,PATIENT VERY CONFUSED AND RESTLESS ,RN LORI AWARE .
--- NOTE | 2022-10-07 22:09 | MHC.EDTECH ---
2200 rounding done ,vitals sign taken repeated trop drawn and sent to lab .
--- NOTE | 2022-10-08 00:10 | PC.NURSE ---
MD Branch made aware of patients orthostatic vital signs. Aware patient BP falls to 90/47 when standing.
--- NOTE | 2022-10-08 00:18 | PC.NURSE ---
engineering secretary informed that pt needs ambulance ride back to facility
--- NOTE | 2022-10-08 00:30 | MHC.EDTECH ---
call out to [facility] to book transport back to SNF at 0031, ETA given was 0100
== END 2022-10-08 01:19 | disposition home or self-care (01) ==
PROVIDERS: Emergency Provider Emergency Medicine
DX: N39.0 Urinary tract infection, site not specified (principal); I95.1 Orthostatic hypotension; R07.9 Chest pain, unspecified; R10.10 Upper abdominal pain, unspecified; F03.90 Unspecified dementia, unspecified severity, without behavioral disturbance, psychotic disturbance, mood disturbance, and anxiety; I48.0 Paroxysmal atrial fibrillation
CPT/HCPCS: 36415; 71045; 80048; 80076; 81001; 81003; 83690; 84484; 85025; 87086; 87088; 87186; 93005; 96361; 96374; 99284; 99285; J0696

== ENCOUNTER 2022-11-23 22:08 | Emergency (ER) | payer MEDICARE, SELFPAY ==
--- NOTE | ~2022-11-23 | XR_ITS ---
EXAMINATION: XR ABDOMEN KUB CLINICAL INDICATION: Fecal impaction COMPARISON: 03/27/2022 TECHNIQUE: AP view of the abdomen. FINDINGS: Nonobstructive bowel gas pattern. No dilated loops of bowel. Gas and stool throughout the colon with large diffuse colonic stool burden. The visualized left lung base is clear. Degenerative changes throughout the spine. Degenerative changes in both hips. XR/XR KUB IMPRESSION: Large colonic stool burden.
[2022-11-23 22:16] VITALS: BP 128/59; PULSE 84; RESP 18; TEMP 36.9; O2SAT 100
[2022-11-23 22:29] VITALS: BP 129/78; BP 158/80; PULSE 81; PULSE 85; RESP 20; TEMP 38.1; O2SAT 96; O2SAT 98; BMI 33.8
[2022-11-23 23:21] VITALS: BP 176/92; PULSE 82; RESP 16; TEMP 37.1; O2SAT 98
[2022-11-23 23:21] LABS: MANUAL DIFF FLAG NO
[2022-11-23 23:22] LABS: Basophils Percent Auto 0.6 % (0-2); Eosinophils Absolute Auto 0.1 X10*3/uL (0.0-0.4); Eosinophils Percent Auto 0.8 % (0-4); Hemoglobin 10.6 g/dl (14.0-18.0); Imm Gran Abs Auto 0.02 X10*3/uL (0.00-0.03); Imm Gran Pct Auto 0.3 % (0.0-0.4); Lymphocytes Absolute Auto 0.6 X10*3/uL (1.2-4.9); Lymphocytes Percent Auto 8.5 % (20-40); Mean Corpuscular HGB Conc 33.1 g/dl (31.0-36.0); Mean Corpuscular Hemoglobin 31.5 pg (27.0-33.0); Mean Corpuscular Volume 95.2 fL (80.0-98.0); Mean Platelet Volume 9.6 fL (9.4-12.4); Monocytes Absolute Auto 0.9 X10*3/uL (0.1-1.2); Neutrophils Absolute Auto 5.7 x10*3/uL (2.0-8.3); Neutrophils Percent Auto 77.8 % (45-73); Platelet Count 217 X10*3/uL (160-400); Red Blood Count 3.36 X10*6/uL (4.60-5.80); Red Cell Distribution Width 15.4 % (11.0-16.0); White Blood Count 7.3 X10*3/uL (4.8-10.8)
--- NOTE | 2022-11-23 23:25 | MHC.EDTECH ---
PATIENT CAME IN VIA EMS ,VITALS SIGN TAKEN ,PT BLOOD DRAWN AND SENT TO LAB ,PATIENT AWAKE TALKING TO HIMSELF .
--- NOTE | 2022-11-23 23:33 | ED_ITS ---
HPI - General Adult General Chief complaint: General Medical Stated complaint: DEMENTIA WAS BEING AGGRESSIVE Time Seen by Provider: 11/23/22 23:30 Source: EMS and RN notes reviewed Mode of arrival: EMS Limitations: altered mental status History of Present Illness HPI narrative: Patient has significant dementia brought by EMS from home for being more aggressive towards his . Patient been aggressive with her for last few weeks more so last few days unable to direct him patient did have history of UTI few weeks ago although patient does have history of constipation no fever no cough Related Data Home Medications Medication Instructions Recorded Confirmed omeprazole 20 mg capsule,delayed 20 mg PO DAILY@0630 02/04/20 07/16/22 release ascorbic acid (vitamin C) 500 mg 500 mg PO DAILY 03/27/22 07/16/22 tablet (Vitamin C) cholecalciferol (vitamin D3) 25 25 mcg PO DAILY 03/27/22 07/16/22 mcg (1,000 unit) tablet (Vitamin D3) cyanocobalamin (vitamin B-12) 1,000 mcg PO DAILY 03/27/22 07/16/22 1,000 mcg tablet multivitamin 1 tab PO DAILY 03/27/22 07/16/22 nystatin 100,000 unit/gram topical 1 appl topical TID PRN Rash 03/27/22 07/16/22 powder (Nystop) nystatin-triamcinolone 100,000 1 appl topical BID PRN Rash 03/27/22 07/16/22 unit/gram-0.1 % topical ointment omega-3 360 li-iqj-eaq-fish oil 1 cap PO BEDTIME 03/27/22 07/16/22 1,200 mg capsule,delayed release (Fish Oil) vitamin E 200 unit tablet 90 mg PO DAILY 03/27/22 07/16/22 ammonium lactate 12 % topical cream appl topical BID 05/17/22 07/16/22 potassium chloride 20 mEq 40 meq PO QID 07/16/22 07/16/22 tablet,extended release sertraline 50 mg tablet 50 mg PO DAILY 07/16/22 07/16/22 Previous Rx's Medication Instructions Recorded nitroglycerin 0.4 mg sublingual 0.4 mg sublingual Q5M PRN chest 01/11/22 tablet pain #30 tabs ROLLATOR (with seat) - XL #1 ea 04/13/22 TOILET SAFETY RAILS (both sides) #1 ea 04/13/22 finasteride 5 mg tablet 5 mg PO DAILY 90 days #90 tabs 05/03/22 methotrexate sodium 2.5 mg tablet 20 mg PO QWEEK #96 tabs 05/17/22 allopurinol 100 mg tablet 100 mg PO DAILY #90 tabs 06/29/22 amiodarone 200 mg tablet 200 mg PO DAILY #90 tabs 07/02/22 amlodipine 10 mg tablet 10 mg PO DAILY #90 tabs 07/02/22 apixaban 5 mg tablet (Eliquis) 5 mg PO BID #180 tabs 07/16/22 gabapentin 400 mg capsule 400 mg PO BEDTIME 90 days #90 caps 07/20/22 atorvastatin 40 mg tablet 40 mg PO BEDTIME 90 days #90 tabs 07/26/22 furosemide 40 mg tablet 40 mg PO DAILY 90 days #90 tabs 07/26/22 cefuroxime axetil 500 mg tablet 500 mg PO BID #14 tabs 10/08/22 folic acid 1 mg tablet 1 mg PO DAILY #90 tabs 10/19/22 BEDSIDE COMMODE (LARGE) #1 ea 11/08/22 olanzapine 2.5 mg tablet 2.5 mg PO QAM 90 days #90 tabs 11/14/22 olanzapine 5 mg tablet 5 mg PO BEDTIME 90 days #90 tabs 11/14/22 Allergies Allergy/AdvReac Type Severity Reaction Status Date / Time penicillin V Allergy Intermediate hives Verified 11/23/22 22:39 Review of Systems Review of Systems: Yes Unobtainable due to mental status PMFSH Past Medical History Medical History Atherosclerotic cardiovascular disease Dementia with behavioral disturbance Embolic stroke Erosive osteoarthritis Essential hypertension Gout History of cardioversion Obesity (BMI 30-39.9) JODI on CPAP Osteoarthritis PAF (paroxysmal atrial fibrillation) Prostate cancer Psoriatic arthritis Pure hypercholesterolemia Surgical History Hx of cardiac cath Hx of cholecystectomy Hx of colonoscopy Hx of eye surgery Stented coronary artery Family History Family History Father No problems noted. Mother No problems noted. Social History Social History Housing: House Alcohol intake: never Patient Tobacco Use Status: Never used Tobacco Smoked in Last 30 Days: No Second Hand Smoke Exposure: No Use of substances other than those prescribed or required for medical reasons: No Advance Directives: Yes Advance Directives on File: Yes Advance Directives Date on File: 03/28/22 service: No Current occupational status: retired Cognitive needs: No Hearing needs: No Vision needs: No Physical Exam ED Vital Signs: Vital Signs - 24 hr 11/23/22 22:16 11/23/22 22:29 11/23/22 23:21 Temperature 98.4 F 100.5 F H 98.8 F Pulse Rate 84 81 82 Respiratory Rate 18 20 16 Blood Pressure 128/59 L 129/78 176/92 H Pulse Oximetry 100 98 98 Oxygen Delivery Method Room Air Room Air Room Air 11/24/22 02:48 11/24/22 04:00 11/24/22 05:16 Temperature 97.5 F 97.7 F 98.4 F Pulse Rate 66 72 69 Respiratory Rate 18 16 16 Blood Pressure 113/53 L 132/60 133/55 L Pulse Oximetry 93 98 98 Oxygen Delivery Method Room Air Room Air Room Air BMI result Body Mass Index 33.8 Appearance: Alert. And awake No acute distress. Eyes: PERRLA, No Nystagmus ENT: Pharynx normal. Oral Mucosa moist Neck: Normal inspection. Neck supple. CVS: Normal heart rate and rhythm. Pulses normal. Respiratory: No respiratory distress. Equal air entry bilateral, no wheezing/rales/rhonchi Abdomen: Soft and nontender. Bowel sounds are present, no mass palpable, no CVA tenderness Skin: Skin warm and dry. Normal skin color. Normal skin turgor. Extremities: No lower extremity edema. No calf tenderness Neuro: Alert and awake. No motor deficit. No sensory deficit.No cerebellar signs , cranial nerves II-XII intact Medications Administered Discontinued Medications Generic Name Dose Route Start Last Admin Trade Name Freq PRN Reason Stop Dose Admin Bisacodyl 10 mg 11/24/22 01:56 11/24/22 03:11 Bisacodyl 5 Mg Tablet.Dr FLOREZ 11/24/22 01:57 10 mg ONCE ONE Administration Magnesium Hydroxide 30 ml 11/24/22 01:56 11/24/22 03:12 Milk Of Magnesia 30 Ml Oral.Susp PO 11/24/22 01:57 30 ml ONCE ONE Administration Medical Decision Making Medical Decision Making MDM Narrative: Patient has severe dementia with difficulty to manage at home with aggression case discussed with patient's requesting for placement as family cannot manage him at home will consult case management Lab Data MDM Lab Attestation statement: I reviewed the patient's lab results. 11/23/22 23:17 11/23/22 23:17 Labs: Lab Results 11/23/22 11/23/22 11/24/22 Range/Units 23:17 23:17 05:28 WBC 7.3 (4.8-10.8) X10*3/uL RBC 3.36 L (4.60-5.80) X10*6/uL Hgb 10.6 L (14.0-18.0) g/dl Hct 32.0 L (42.0-52.0) % MCV 95.2 (80.0-98.0) fL MCH 31.5 (27.0-33.0) pg MCHC 33.1 (31.0-36.0) g/dl RDW 15.4 (11.0-16.0) % Plt Count 217 (160-400) X10*3/uL MPV 9.6 (9.4-12.4) fL Immature Gran % (Auto) 0.3 (0.0-0.4) % Neut % (Auto) 77.8 H (45-73) % Lymph % (Auto) 8.5 L (20-40) % [place] % (Auto) 12.0 H (2-11) % Eos % (Auto) 0.8 (0-4) % Baso % (Auto) 0.6 (0-2) % Lymph # (Auto) 0.6 L (1.2-4.9) X10*3/uL [place] # (Auto) 0.9 (0.1-1.2) X10*3/uL Eos # (Auto) 0.1 (0.0-0.4) X10*3/uL Baso # (Auto) 0.0 (0.0-0.2) X10*3/uL Abs Immat Gran (auto) 0.02 (0.00-0.03) X10*3/uL Absolute Neuts (auto) 5.7 (2.0-8.3) x10*3/uL Absolute Nucleated RBC 0.000 (0.0-0.012) X10*3/uL Nucleated RBC % (auto) 0.0 (0.0-0.2) /100WBC Sodium 142 (135-145) mmol/L Potassium 3.1 L (3.3-5.1) mmol/L Chloride 103 (96-108) mmol/L Carbon Dioxide 28 (22-29) mmol/L Anion Gap 14 (12-20) BUN 13 (9-16) mg/dL Creatinine 0.78 (0.5-1.4) mg/dL Estim Creat Clear Calc 81.1 Estimated GFR > 60 Random Glucose 95 (60-115) mg/dL Calcium 8.1 L (8.4-10.2) mg/dL Total Bilirubin 0.6 (0.0-1.0) mg/dL AST 18 (5-37) U/L ALT 12 (0-40) U/L Alkaline Phosphatase 86 (39-117) U/L Total Protein 6.0 L (6.5-8.0) g/dL Albumin 3.0 L (3.5-5.0) g/dL Urine Color Yellow Urine Appearance Turbid Urine pH 8.0 (5.0-9.0) Ur Specific [place] 1.015 (1.005-1.025) Urine Protein Negative (Neg-Trace) mg/dL Urine Glucose (UA) Negative (Negative) mg/dL Urine Ketones Negative (Negative) mg/dL Urine Blood Negative (Negative) Urine Nitrite Negative (Negative) Ur Leukocyte Esterase Trace H (Negative) Urine RBC 3-5 H (0-2) /HPF Urine WBC 0-5 (0-5) /HPF Ur Squamous Epith Cells 0-2 (0-2) /HPF Urine Bacteria None Seen (None Seen) Hyaline Casts 0-2 (0-2) /LPF Independent Interpretation I performed an independent interpretation of an: EKG Interpretation: Normal sinus rhythm heart rate 80 beats per minute RBBB no acute ST T wave changes no acute ischemia Discharge Plan Discharge Clinical Impression: Dementia with aggressive behavior Patient Disposition: Still a Patient Prescriptions: No Action nitroglycerin 0.4 mg tablet, sublingual 0.4 mg sublingual Q5M PRN (Reason: chest pain) Qty: 30 5RF Rx Instructions: do not exceed 3 doses per episode finasteride 5 mg tablet 5 mg PO DAILY 90 Days Qty: 90 1RF allopurinol 100 mg tablet 100 mg PO DAILY Qty: 90 1RF amlodipine 10 mg tablet 10 mg PO DAILY Qty: 90 3RF amiodarone 200 mg tablet 200 mg PO DAILY Qty: 90 3RF Eliquis 5 mg tablet 5 mg PO BID Qty: 180 3RF gabapentin 400 mg capsule 400 mg PO BEDTIME 90 Days Qty: 90 1RF furosemide 40 mg tablet 40 mg PO DAILY 90 Days Qty: 90 3RF atorvastatin 40 mg tablet 40 mg PO BEDTIME 90 Days Qty: 90 3RF folic acid 1 mg tablet 1 mg PO DAILY Qty: 90 1RF (DME) BEDSIDE COMMODE (LARGE) large See Rx Instructions .Route .MEDSUPPLY Qty: 1 0RF Rx Instructions: As directed olanzapine 2.5 mg tablet 2.5 mg PO QAM 90 Days Qty: 90 1RF olanzapine 5 mg tablet 5 mg PO BEDTIME 90 Days Qty: 90 1RF multivitamin Tablet 1 tab PO DAILY cyanocobalamin (vitamin B-12) 1,000 mcg Tablet 1,000 mcg PO DAILY nystatin-triamcinolone 100,000-0.1 unit/gram-% ointment 1 appl topical BID PRN (Reason: Rash) Rx Instructions: apply to folds on legs ascorbic acid (vitamin C) [Vitamin C] 500 mg Tablet 500 mg PO DAILY vitamin E 200 unit Tablet 90 mg PO DAILY cholecalciferol (vitamin D3) [Vitamin D3] 25 mcg (1,000 unit) Tablet 25 mcg PO DAILY omega 4-cdv-ssk-fish oil [Fish Oil] 360-1,200 mg Capsule,Delayed Release(Dr/Ec) 1 cap PO BEDTIME nystatin [Nystop] 100,000 unit/gram powder 1 appl topical TID PRN (Reason: Rash) Rx Instructions: apply to folds on legs cefuroxime axetil 500 mg tablet 500 mg PO BID Qty: 14 0RF (DME) TOILET SAFETY RAILS (both sides) See Rx Instructions .Route .MEDSUPPLY Qty: 1 0RF Rx Instructions: As directed (DME) ROLLATOR (with seat) - XL XL See Rx Instructions .Route .MEDSUPPLY Qty: 1 0RF Rx Instructions: As directed omeprazole 20 mg capsule,delayed release(DR/EC) 20 mg PO DAILY@0630 methotrexate sodium 2.5 mg tablet 20 mg PO QWEEK Qty: 96 0RF ammonium lactate 12 % cream topical BID sertraline 50 mg tablet 50 mg PO DAILY potassium chloride 20 mEq tablet extended release 40 meq PO QID
[2022-11-23 23:36] LABS: Alanine Aminotransferase 12 U/L (0-40); Alkaline Phosphatase 86 U/L (39-117); Anion Gap 14 (12-20); Aspartate Amino Transferase 18 U/L (5-37); Bilirubin Total 0.6 mg/dL (0.0-1.0); Blood Urea Nitrogen 13 mg/dL (9-16); Calcium 8.1 mg/dL (8.4-10.2); Carbon Dioxide 28 mmol/L (22-29); Chloride 103 mmol/L (96-108); Creatinine Clr Calc Pharmacy 81.1; Estimated Glomerular Filt Rate > 60; Glucose Random 95 mg/dL (60-115); Potassium 3.1 mmol/L (3.3-5.1); Sodium 142 mmol/L (135-145)
--- NOTE | 2022-11-24 00:03 | ECG_ITS ---
Test Reason : COMBATIVE Blood Pressure : / mmHG Vent. Rate : 080 BPM Atrial Rate : 080 BPM P-R Int : 202 ms QRS Dur : 146 ms QT Int : 472 ms P-R-T Axes : 069 -20 016 degrees QTc Int : 544 ms Normal sinus rhythm Right bundle branch block Cannot rule out Inferior infarct (cited on or before 24-NOV-2022) Abnormal ECG When compared with ECG of 07-OCT-2022 18:37, No significant change was found Referred By: Marbin Dumas Electronically Signed By:GI PACE
--- NOTE | 2022-11-24 00:32 | MHC.EDTECH ---
PATIENT EKG TAKEN AND WAS READ BY PROVIDER .
--- NOTE | 2022-11-24 00:53 | PC.NURSE ---
Addendum entered by Dana Alejandra 11/24/22 06:33: Pt appears to be sleeping, awakens with verbal stimuli, Pt provided urine sample with staff assist to urinal. Three nickel size skin tears noted to right elbow area, cleaned and dressing applied. Unsuccessful attempt made to call for home med rec. Original Note: Pt BIBA from home for increase aggression towards . reports Pt has not been listening to simple commands, put self on floor and did not want to get up, hurt my back last week attempting to help him get into bed, he does not sleep at night and cant settle down . Per Pt has hx of UTI, unknown last BM, no ABD tenderness, + bowel sounds x 4. Pt A&O to self, calm and cooperative, denies any pain, disorganized thoughts. Lab work obtained and sent to lab, EKG obtained and reviewed by provider, bladder scan obtained 95 mL.
[2022-11-24 02:48] VITALS: BP 113/53; PULSE 66; RESP 18; TEMP 36.4; O2SAT 93
[2022-11-24] MEDS: bisacodyL 5 MG TABLET.DR 10 MG PO (03:11)
[2022-11-24] MEDS: Milk of Magnesia 30 ML ORAL.SUSP PO (03:12)
[2022-11-24 04:00] VITALS: BP 132/60; PULSE 72; RESP 16; TEMP 36.5; O2SAT 98
[2022-11-24 05:16] VITALS: BP 133/55; PULSE 69; RESP 16; TEMP 36.9; O2SAT 98
[2022-11-24 05:34] LABS: Appearance Urine Turbid; Color Urine Yellow; Glucose Urine UA Negative (Negative); Leukocyte Esterase Urine Trace (Negative); Nitrite Urine Negative (Negative); Specific Gravity - Urine 1.015 (1.005-1.025); UMIC TRIGGER UACC YES; Urine Blood Negative (Negative); Urine Ketones Negative (Negative); Urine Protein Negative (Neg-Trace)
[2022-11-24 05:39] LABS: Bacteria Urine None Seen (None Seen); Hyaline Casts Urine 0-2 /LPF (0-2); Squamous Epithelial Cell Urine 0-2 /HPF (0-2); WBC Urine 0-5 /HPF (0-5)
--- NOTE | 2022-11-24 08:06 | PC.NURSE ---
assumed care of pt at 0700. pt awake, alert, but confused. consumed breakfast independently., pt rails up, but pt keeps trying to slide out of bed. sitter camera and curtain open for pt safety. called pharmacy, med rec being completed by pharmacy right now. call [facility] within pt reach. all pt needs met jazmine
--- NOTE | 2022-11-24 08:19 | PHA.MEDREC ---
Pharmacy Consult ? Medication Reconciliation Pharmacy has completed the medication reconciliation. spoke with patients over the phone and confirmed medications.
[2022-11-24] MEDS: Furosemide 40 MG TABLET PO (10:18)
[2022-11-24] MEDS: Potassium Chloride ER 20 MEQ TAB.ER.PRT 40 MEQ PO ×2 (10:19→19:56)
[2022-11-24] MEDS: amLODIPine Besylate 10 MG TABLET PO (10:19)
[2022-11-24] MEDS: Omeprazole 20 MG CAPSULE.DR PO (10:19)
[2022-11-24] MEDS: Sertraline HCL 50 MG TABLET PO (10:19)
[2022-11-24] MEDS: Amiodarone HCL 200 MG TABLET PO (10:19)
[2022-11-24] MEDS: Apixaban 5 MG TABLET PO ×2 (10:19→19:56)
[2022-11-24] MEDS: Folic Acid 1 MG TABLET PO (10:19)
[2022-11-24] MEDS: allopurinoL 100 MG TABLET PO (10:20)
[2022-11-24] MEDS: Finasteride 5 MG TABLET PO (10:41)
--- NOTE | 2022-11-24 11:14 | PC.NURSE ---
pt medicated per mar, tolerated PO meds well. currently resting in stretcher, rr even/unlabored.
--- NOTE | 2022-11-24 12:54 | HE.COMHEA ---
CM RECEIVED CONSULT FOR PT W/DMENTIA AND WORSENING AND AGGRESSIVE BEHAVIORS TOWARDS , CM CONTACTED PT''S /HCP/POA LORRAINE AT 12:28PM, LORRAINE REPORTS PT HAS HAD SEVERAL FALLS AND SHE UNABLE TO PICK HIM UP OFF FLOOR AND HAS BEEN CALLING EMT'S TO ASSIST GETTING PT OFF FLOOR, PT HAS ALSO BEEN GATTING MORE AGGRESSIVE AND WHEN LORRAINE ATTEMPTS TO ASSIST HE GETS AGGRESSIVE AND DOESN'T SEEM TO REMEMBER HOW TO HOLD ON TO WALKER OR FOLLOW INSTRUCTIONS. PT WAS D/C[facility]D FROM [facility] OR [id number], PT WAS NOT SENT HOME W/[facility] SERVICES, PT HAS A WALKER, 2 WC'S, 2 RECLINERS AND ONE THAT STANDS PT HOWEVER HE HAS SLID OUT OF IT ONTO FLOOR), SHOWERR CHAIR, BEDSIDE COMMONDE GRAB BARS IN . PT'S HAS HAD PRIVATE DUTY ANIMAL CONTROL SPECIALIST'S AT TIMES FOR PT AND PT STILL FALLS. PT'S PCP IS SHELBI FUENTES, HCP IS LORRAINE AND SON GI & COPY ON FILE, PT FULLY VACCINATED FOR COVID19. PT EVAL STILL PENDING AND PT WILL NEED ST W/TRANS TO LTC, DOES NOT NEED SECURE UNIT.
--- NOTE | 2022-11-24 13:43 | PC.NURSE ---
pt switched to hospital bed for comfort and safety. sitter camera in room. PT at bedside
--- NOTE | 2022-11-24 13:57 | PC.NURSE ---
pt found to be saturated in urine. pt cleaned up and full bed changeover. pt resting comfortably, rr even/unlabored. skin wpd. sitter camera at bedside
--- NOTE | 2022-11-24 14:31 | MHC.CM.PN ---
Addendum entered by Johana Limon RN 11/24/22 14:58: broad referral placed for 50 mile radius for STR w/transition to LTC bed [facility]. Original Note: CM RECEIVED CONSULT FOR PT W/DMENTIA AND WORSENING AND AGGRESSIVE BEHAVIORS TOWARDS , CM CONTACTED PT''S /HCP/POA LORRAINE AT 12:28PM, LORRAINE REPORTS PT HAS HAD SEVERAL FALLS AND SHE UNABLE TO PICK HIM UP OFF FLOOR AND HAS BEEN CALLING EMT'S TO ASSIST GETTING PT OFF FLOOR, PT HAS ALSO BEEN GATTING MORE AGGRESSIVE AND WHEN LORRAINE ATTEMPTS TO ASSIST HE GETS AGGRESSIVE AND DOESN'T SEEM TO REMEMBER HOW TO HOLD ON TO WALKER OR FOLLOW INSTRUCTIONS. PT WAS D/C'D FROM [facility] OR [id number], PT WAS NOT SENT HOME W/[facility] SERVICES, PT HAS A WALKER, 2 WC'S, 2 RECLINERS AND ONE THAT STANDS PT HOWEVER HE HAS SLID OUT OF IT ONTO FLOOR), SHOWERR CHAIR, BEDSIDE COMMONDE GRAB BARS IN BR. 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 PT'S PCP IS SHELBI FUENTES, HCP IS LORRAINE AND SON GI & COPY ON FILE, PT FULLY VACCINATED FOR COVID19. PT EVAL STILL PENDING AND PT WILL NEED ST W/TRANS TO LTC, DOES NOT NEED SECURE UNIT.
--- NOTE | 2022-11-24 15:26 | PC.NURSE ---
report given to michael Dumont. currently being transported by gurvinder to overflow bed 3
[2022-11-24 15:38] VITALS: BP 165/79; PULSE 70; RESP 18; TEMP 36.6; O2SAT 98
[2022-11-24] MEDS: Atorvastatin Calcium 40 MG TABLET PO (19:56)
[2022-11-24] MEDS: Gabapentin 400 MG CAPSULE PO (19:56)
[2022-11-24] MEDS: OLANZapine 5 MG TABLET PO (19:57)
[2022-11-24 22:59] VITALS: BP 132/67; PULSE 67; RESP 17; TEMP 36.6; O2SAT 97
--- NOTE | 2022-11-25 06:08 | PC.NURSE ---
Assumed care at 1900. Pt was so confused. Calling for his . He tried to get out of bed. Camera in place. High fall risk.
[2022-11-25] MEDS: Omeprazole 20 MG CAPSULE.DR PO (06:19)
[2022-11-25 07:21] VITALS: BP 132/54; PULSE 78; RESP 19; TEMP 37.1; O2SAT 99
--- NOTE | 2022-11-25 09:15 | MHC.EDTECH ---
Addendum entered by Maile Prieto CNA 11/25/22 13:19: patient requested/given bedpan. no urine noted. Original Note: patient washed and total bed changed. patient unable to use the urinal, patient incontinent. co-operative to care.
[2022-11-25] MEDS: OLANZapine 2.5 MG TABLET PO ×3 (09:36→19:51)
[2022-11-25] MEDS: Potassium Chloride ER 20 MEQ TAB.ER.PRT 40 MEQ PO ×2 (09:36→19:50)
[2022-11-25] MEDS: metHOTREXate sodium 2.5 MG TABLET 20 MG PO (09:36)
[2022-11-25] MEDS: Sertraline HCL 50 MG TABLET PO (09:36)
[2022-11-25] MEDS: allopurinoL 100 MG TABLET PO (09:37)
[2022-11-25] MEDS: amLODIPine Besylate 10 MG TABLET PO (09:37)
[2022-11-25] MEDS: Furosemide 40 MG TABLET PO (09:37)
[2022-11-25] MEDS: Folic Acid 1 MG TABLET PO (09:37)
[2022-11-25] MEDS: Apixaban 5 MG TABLET PO ×2 (09:37→19:51)
[2022-11-25] MEDS: Finasteride 5 MG TABLET PO (09:37)
[2022-11-25] MEDS: Amiodarone HCL 200 MG TABLET PO (09:38)
--- NOTE | 2022-11-25 10:04 | PC.NURSE ---
PT IS SLEEPING/RESTING, RESP EVEN AND UNLABORED. PT HOB UP AND TOOK MEDS WHOLE WITHOUT ANY ISSUES.
--- NOTE | 2022-11-25 13:16 | MHC.CM.PN ---
Addendum entered by Johana Limon RN 11/25/22 13:30: NO CLOSER BED OFFERS AT THIS TIME. Addendum entered by Johana Limon RN 11/25/22 13:29: PER [facility] REQUEST, HCP AND NURSES NOTES SENT IN REFERRAL. Original Note: CM CONTACTED PT'S SON/ALT HCP GI AT NUMBER ON HCP PER PT'S LORRAINE'S REQUEST TO OBTAIN EMAIL TO SEND LIST OF DOCUMENTS NEEDED FOR MH LTC (OVER 65) POLI, GI AND HIS DANIELLE WERE ON SPEAKER PHONE AND WERE AWARE PT WILL NOT QUALIFY FOR STR HE IS NOT ADMITTED TO HOSPITAL AND WILL NOT HAVE A QUALIFYING STAY AND WILL NEED TO PRIVATE PAY UNTIL MH GOES INTO AFFECT, EMAIL SENT TO GI AT [email or web address]-[email or web address] WHICH INCLUDED 'S [employer] CONTACT NUMBER WELL. FAMILY WOULD LIKE PT TO BE PLACED CLOSE TO HOME HAS POSSIBLE HOWEVER ARE AWARE LTC BEDS FOR MEMORY CARE ARE HARD TO CME BY, 3 FACILITIES HAVE SHOWN INTEREST HOWEVER [facility] REH[facility] IN [place] IS CLOSEST AND THE ONE THEY WOULD BE AGREEABLE TO IF NO CLOSER BED OFFERS W/PLAN TO HAVE MOVED CLOSER ONCE BED IS AVAILABLE.
--- NOTE | 2022-11-25 13:20 | PC.NURSE ---
THERE IS NO INDICATION AT THIS TIME WHEN THE PT LAST HAD A BM. PT 'S IS AT BED SIDE AND STATES THAT AT HOME SHE WAS GIVEN HIM DULCOLAX, TALISHA LAX WITH LITTLE RESULT. MLP (STEFAN Brar) AWARE.
--- NOTE | 2022-11-25 14:14 | MHC.EDTECH ---
patient refusing vitals. he was stating to leave him alone.
--- NOTE | 2022-11-25 14:27 | PC.NURSE ---
pt seen by dr. charlton (psych) pt aware of plan of care.
--- NOTE | 2022-11-25 14:28 | PM.PSYCN ---
History of Present Illness Date of Service: 11/25/22 Chief Complaint: DEMENTIA WAS BEING AGGRESSIVE Reason for Consult: capacity, mgmt of behavioral disturbance HPI Narrative: pt seen in ED overflow. welcoming and reasonably pleasant, cooperative with evaluation. on attempted interview, it became rapidly apparent that this pt suffers from very advanced dementia or delirium. on being asked what town we are [place], he [place], [place]. on being asked what facility we are in, he responded, this way to the door over there [gesturing across the argueta]... trying to think... used to be... i'll give it to the moihni. on being asked why he is here in this place, he replied, the fellow in the white shirt used to be my boss at [employer]. similar difficulties were encountered during MSE. almost no cogent communication was made by pt. as he is unable to engage in meaningful exchange of information with others, he lacks capacity for medical decisions. 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 reported he worked at [employer]. Substance History: unable to collect history Trauma History: unknown Diagnostics Vital Signs (24Hr): Vital Signs - 24 hr 11/24/22 15:38 11/24/22 22:59 11/25/22 07:21 Temperature 97.9 F 98 F 98.7 F Pulse Rate 70 67 78 Respiratory Rate 18 17 19 Blood Pressure 165/79 H 132/67 132/54 L Pulse Oximetry 98 97 99 Oxygen Delivery Method Room Air Room Air Room Air BMI result Body Mass Index 33.8 Labs 11/23/22 23:17 11/23/22 23:17 Labs: Laboratory Results - last 48 hr 11/23/22 11/23/22 11/24/22 23:17 23:17 05:28 WBC 7.3 RBC 3.36 L Hgb 10.6 L Hct 32.0 L MCV 95.2 MCH 31.5 MCHC 33.1 RDW 15.4 Plt Count 217 MPV 9.6 Immature Gran % (Auto) 0.3 Neut % (Auto) 77.8 H Lymph % (Auto) 8.5 L [place] % (Auto) 12.0 H Eos % (Auto) 0.8 Baso % (Auto) 0.6 Lymph # (Auto) 0.6 L [place] # (Auto) 0.9 Eos # (Auto) 0.1 Baso # (Auto) 0.0 Abs Immat Gran (auto) 0.02 Absolute Neuts (auto) 5.7 Absolute Nucleated RBC 0.000 Nucleated RBC % (auto) 0.0 Sodium 142 Potassium 3.1 L Chloride 103 Carbon Dioxide 28 Anion Gap 14 BUN 13 Creatinine 0.78 Estim Creat Clear Calc 81.1 Estimated GFR > 60 Random Glucose 95 Calcium 8.1 L Total Bilirubin 0.6 AST 18 ALT 12 Alkaline Phosphatase 86 Total Protein 6.0 L Albumin 3.0 L Urine Color Yellow Urine Appearance Turbid Urine pH 8.0 Ur Specific [place] 1.015 Urine Protein Negative Urine Glucose (UA) Negative Urine Ketones Negative Urine Blood Negative Urine Nitrite Negative Ur Leukocyte Esterase Trace H Urine RBC 3-5 H Urine WBC 0-5 Ur Squamous Epith Cells 0-2 Urine Bacteria None Seen Hyaline Casts 0-2 Imaging Radiology Impressions: ITS Impressions KUB X-Ray 11/24/22 00:49 IMPRESSION: Large colonic stool burden. Mental Status Exam Mental Status Exam Narrative: lying in his hospital bed wearing gown, fidgeting with his drapery and lines throughout interview as if attempting to readjust them to a more comfortable arrangement. cooperative. speech spontaneous, nml rate, amount, incr loudness, nml latency. thoughts disorganized, attention apparently severely impaired. affect constricted, normo-intense, min-labile. mood not bad... it cost me a few dollars, though. what cost you a few dollars? the diggers. denies HI, word salad response to SI/SIBI questions. Medications Medications Current Medications Allopurinol (Allopurinol 100 Mg Tablet) 100 mg PO DAILY RAÚL Last Admin: 11/25/22 09:37 Dose: 100 mg Amiodarone HCl (Amiodarone Hcl 200 Mg Tablet) 200 mg PO DAILY [facility] Last Admin: 11/25/22 09:38 Dose: 200 mg Amlodipine Besylate (Amlodipine Besylate 10 Mg Tablet) 10 mg PO DAILY [facility]; Protocol Last Admin: 11/25/22 09:37 Dose: 10 mg Apixaban (Apixaban 5 Mg Tablet) 5 mg PO BID [facility] Last Admin: 11/25/22 09:37 Dose: 5 mg Atorvastatin Calcium (Atorvastatin Calcium 40 Mg Tablet) 40 mg PO BEDTIME [facility] Last Admin: 11/24/22 19:56 Dose: 40 mg Finasteride (Finasteride 5 Mg Tablet) 5 mg PO DAILY [facility] Last Admin: 11/25/22 09:37 Dose: 5 mg Folic Acid (Folic Acid 1 Mg Tablet) 1 mg PO DAILY [facility] Last Admin: 11/25/22 09:37 Dose: 1 mg Furosemide (Furosemide 40 Mg Tablet) 40 mg PO DAILY [facility]; Protocol Last Admin: 11/25/22 09:37 Dose: 40 mg Gabapentin (Gabapentin 400 Mg Capsule) 400 mg PO BEDTIME [facility] Last Admin: 11/24/22 19:56 Dose: 400 mg Methotrexate (Methotrexate Sodium 2.5 Mg Tablet) 20 mg PO CHARLES [facility] Last Admin: 11/25/22 09:36 Dose: 20 mg Nitroglycerin (Nitroglycerin 0.4 Mg Tab.Subl) 0.4 mg SUBLINGUAL Q5M PRN PRN Reason: chest pain Nystatin (Nystatin Powder 15 Gm Bottle) 1 appl TOPICAL TID PRN; Protocol PRN Reason: Rash Nystatin/Triamcinolone Acetonide (Nystatin/Triamcinolone Oint 15 Gm Tube) 1 appl TOPICAL BID PRN; Protocol PRN Reason: Rash Olanzapine (Olanzapine 2.5 Mg Tablet) 2.5 mg PO DAILY [facility] Last Admin: 11/25/22 09:36 Dose: 2.5 mg Olanzapine (Olanzapine 5 Mg Tablet) 5 mg PO BEDTIME [facility] Last Admin: 11/24/22 19:57 Dose: 5 mg Omeprazole (Omeprazole 20 Mg Capsule.Dr) 20 mg PO DAILY@0630 [facility] Last Admin: 11/25/22 06:19 Dose: 20 mg Pharmacy Consult (Consult Rx Perform Med Rec) 1 each MISCELLANE ONCE PRN PRN Reason: Consult order Potassium Chloride (Potassium Chloride Er 20 Meq Tab.Er.Prt) 40 meq PO BID [facility] Last Admin: 11/25/22 09:36 Dose: 40 meq Sertraline HCl (Sertraline Hcl 50 Mg Tablet) 50 mg PO DAILY [facility] Last Admin: 11/25/22 09:36 Dose: 50 mg Allergies Allergies Allergy/AdvReac Type Severity Reaction Status Date / Time penicillin V Allergy Intermediate hives Verified 11/23/22 22:39 Assessment & Plan Assessment & Plan (1) Dementia with aggressive behavior: Status: Acute Code(s): F03.918 - Unspecified dementia, unspecified severity, with other behavioral disturbance Plan rule out delirium; if pt's mental status is dependably as at present, it is not delirium. if level of consciousness waxes and wanes, he may be delirious. at present, with known diagnosis of dementia with behavioral disturbance, i am assuming he is at mental status baseline for purposes of assessment and recommendations below: currently on zyprexa 5 at HS and 2.5 daily. would add zyprexa 2.5 mg Q4H PRN agitation. pt lacks capacity for medical decision-making, suffering from advanced dementia presently. surrogate decision-maker should be invoked. Total time managing care of this patient today __35__ minutes.
--- NOTE | 2022-11-25 14:39 | PC.NURSE ---
pt continues to be agitated and wants to get oob, camera at bedside.
[2022-11-25] MEDS: Mineral OiL enema 133 ML ENEMA PR (17:00)
--- NOTE | 2022-11-25 17:24 | PC.NURSE ---
Attempted to straight cath patient both with straight tip catheter and once with coude catheter with no success. ADAN Ramirez informed.
--- NOTE | 2022-11-25 17:44 | PC.NURSE ---
Patient incontinent a large amount of urine.
[2022-11-25 19:35] VITALS: BP 154/68; PULSE 82; RESP 17; TEMP 36.8; O2SAT 98
[2022-11-25] MEDS: Gabapentin 400 MG CAPSULE PO (19:50)
[2022-11-25] MEDS: OLANZapine 5 MG TABLET PO (19:51)
[2022-11-25] MEDS: Atorvastatin Calcium 40 MG TABLET PO (19:51)
--- NOTE | 2022-11-25 20:30 | PC.NURSE ---
Patient had been given enema this shift, patient incontinent of stool. Pericare provided to patient
[2022-11-25] MEDS: diphenhydrAMINE HCL 25 MG CAPSULE PO (22:42)
[2022-11-25 23:34] VITALS: BP 141/73; PULSE 78; RESP 18; TEMP 36.6; O2SAT 98
--- NOTE | 2022-11-26 02:24 | PC.NURSE ---
Patient incontinent of a large amount of urine and some stool. Patient given pericare and given a warm blanket. Patient now resting on bed no s/s of distress noted.
--- NOTE | 2022-11-26 03:28 | PC.NURSE ---
Assumed care of pt. Pt sleeping, no acute distress at this time. Security camera in place for safety. Continuing plan of care.
[2022-11-26] MEDS: Omeprazole 20 MG CAPSULE.DR PO (06:22)
[2022-11-26] MEDS: allopurinoL 100 MG TABLET PO (10:00)
[2022-11-26] MEDS: Apixaban 5 MG TABLET PO ×2 (10:00→21:40)
[2022-11-26] MEDS: Sertraline HCL 50 MG TABLET PO (10:00)
[2022-11-26] MEDS: Furosemide 40 MG TABLET PO (10:00)
[2022-11-26] MEDS: Amiodarone HCL 200 MG TABLET PO (10:00)
[2022-11-26] MEDS: OLANZapine 2.5 MG TABLET PO ×3 (10:00→21:39)
[2022-11-26] MEDS: Finasteride 5 MG TABLET PO (10:00)
[2022-11-26] MEDS: Potassium Chloride ER 20 MEQ TAB.ER.PRT 40 MEQ PO ×2 (10:00→21:40)
[2022-11-26] MEDS: amLODIPine Besylate 10 MG TABLET PO (10:00)
[2022-11-26] MEDS: Folic Acid 1 MG TABLET PO (10:00)
--- NOTE | 2022-11-26 11:27 | MHC.CM.ED ---
Review of referrals noted: requested updates/specific info sent to [facility] in [place]: waiting for determination: family aware of private pay status until MH can be obtained. Will await Facility response before contacting family.
[2022-11-26 15:00] VITALS: BP 112/56; PULSE 63; RESP 16; TEMP 36.4; O2SAT 99
[2022-11-26 15:09] VITALS: BP 112/56; PULSE 63; RESP 16; TEMP 36.4; O2SAT 99
--- NOTE | 2022-11-26 16:15 | MHC.EDTECH ---
THIS PCT ASSUMED CARE OF PT AT 1500 ,PATIENT IS DRY AND WAS REPOSITION ,PATIENT AWAKE AND TALKING TO STAFF .
--- NOTE | 2022-11-26 17:28 | MHC.CM.ED ---
[facility] and [facility] following. No bed offers as of yet. 2 messages left with Adali to return call. Per Dr. Pimentel, patient lacks capacity to make medical decisions and has invoked the HCP. , Adali is the HCP. According to report, family will private pay until MH application is approved. I do not believe MH application has been submitted.
--- NOTE | 2022-11-26 17:46 | MHC.EDTECH ---
PT WAS SET UP WITH DINNER ,FED HIMSELF ATE 100 % OF MEAL ,DRANK 360 ML FLUIDS .
[2022-11-26] MEDS: Acetaminophen 325 MG TABLET 975 MG PO (18:24)
--- NOTE | 2022-11-26 19:10 | MHC.EDTECH ---
PT WAS ASSISTED UNTO BED LANCE ,HAD SMALL BOWEL MOVEMENT ,CARE GIVEN AND PT AT BEDSIDE .
--- NOTE | 2022-11-26 19:46 | PC.NURSE ---
Assumed care at 07:00. Patient alert and oriented to person only, very forgetful and impulsive. Seemed to get more confused in the early evening, PRN zyprexa with effect. Halting thought content. Pulls on tubes. Patient repeatedly reporting left hip pain, tender to touch, no redness or bruising on site. Patient with no pain medications ordered during daytime; ice packs applied to left hip and offloaded with some effect, Patient continued to complain of left hip pain, provider notified, new order for tylenol, administered with effect. 2 BMs this shift. [place] catheter patient tends to pull off. telesitter and 1:1 sitter in use. Patient took pills whole with thin liquids this morning, but this evening as he has been more confused, required pills to be crushed, and his , Adali, who was in today, says she crushes his pills for him at home. Skin with fungal groin rash, scabs scattered through arms and legs, and pink, blanchable buttocks.
--- NOTE | 2022-11-26 19:56 | MHC.EDTECH ---
pt had a medium loose bowel movement ,care given ,bedding change ,warm blanket given ,bed alarm on .
[2022-11-26 20:47] VITALS: BP 123/79; PULSE 83; RESP 16; TEMP 36.9; O2SAT 98
--- NOTE | 2022-11-26 21:26 | MHC.CM.ED ---
CM met with / invoked HCP Adali Huang. Adali can no longer care for her at home. Referral/contact information given to Adali for the [employer] for assistance with MH application process. Adali tell CM she can private pay for 1-2 months. Adali is aware that the psychiatrist has invoked the HCP, as her husbands dementia is advancing and he cannot make medical decisions for himself. Adali is aware that [facility] and [facility] are following. Updates made in [facility]. Adali aware that if bed offers are made, she will need to arrange payment with the facility. Zyprexa med changes made by psych. No IM medications given. CM contact information given. CM following for discharge planning.
[2022-11-26] MEDS: OLANZapine 5 MG TABLET PO (21:39)
[2022-11-26] MEDS: Gabapentin 400 MG CAPSULE PO (21:39)
[2022-11-26] MEDS: Atorvastatin Calcium 40 MG TABLET PO (21:39)
--- NOTE | 2022-11-27 00:14 | MHC.EDTECH ---
0000 ROUNDING DONE ,PT WAS INCONIENT OF SMALL AMOUNT OF STOOL CARE GIVEN ,PT AWAKE IN BED ,BED ALARM ON .
--- NOTE | 2022-11-27 01:02 | MHC.EDTECH ---
0100 pt was inconient of large amount of loose stool ,care given ,bedding change ,pt is awake in bed .
--- NOTE | 2022-11-27 02:00 | MHC.EDTECH ---
0200 ROUNDING DONE .PT SLEEPING .
--- NOTE | 2022-11-27 04:12 | PC.NURSE ---
Assumed care at 1900. Medicated per JUN, given additional PRN zyprexa at approximately 2140. Pt remained restless, agitated throughout night. Able to fall asleep around 0330. Alert, oriented to self only. Nonsensical speech. Requires frequent redirection. Multiple BMs overnight - loose, liquid stools. Cleaned, repositioned, barrier cream applied to red buttocks for skin protection. Scattered scabs and bruises, LAY. Small reopened scab to R forearm with scant amount of blood, covered with bandaid. Red rash to groin, nystatin ordered. No c/o pain. Sitter at bedside. Telesitter in place. Care ongoing.
[2022-11-27 06:40] VITALS: BP 123/64; PULSE 66; RESP 16; TEMP 36.3; O2SAT 99
--- NOTE | 2022-11-27 06:49 | MHC.EDTECH ---
pt was incontinent of urine ,care given and bedding change ,warm blanket given .
[2022-11-27] MEDS: Folic Acid 1 MG TABLET PO (07:34)
[2022-11-27] MEDS: amLODIPine Besylate 10 MG TABLET PO (07:34)
[2022-11-27] MEDS: allopurinoL 100 MG TABLET PO (07:34)
[2022-11-27] MEDS: OLANZapine 2.5 MG TABLET PO (07:34)
[2022-11-27] MEDS: Furosemide 40 MG TABLET PO (07:34)
[2022-11-27] MEDS: Sertraline HCL 50 MG TABLET PO (07:34)
[2022-11-27] MEDS: Apixaban 5 MG TABLET PO ×2 (07:34→20:14)
[2022-11-27] MEDS: Finasteride 5 MG TABLET PO (07:35)
[2022-11-27] MEDS: Amiodarone HCL 200 MG TABLET PO (07:35)
--- NOTE | 2022-11-27 08:34 | MHC.CM.ED ---
Addendum entered by Corinne Hendrix 11/27/22 14:21: Patient's Adali, given update via telephone. Adali is concerned about patient being transferred to a facility that is far away because of her inability to drive long distances. T/W explained about options being limited due to patient requiring a locked unit. Adali verbalized understanding and would be agreeable to [facility] at [place]. Adali also aware patient received PRN Zyprexa and transfer to facility is not appropriate at this time. Addendum entered by Corinne Hendrix 11/27/22 09:04: Received notification from both facilities that they will not be able to offer a bed because patient received PRN Zyprexa and has camera sitter. Original Note: Patient remains in ER overflow. Clinical updates sent to [facility] and [facility] at [place]. These are the only 2 facilities following patient at this time. Continue to monitor for d/c needs.
[2022-11-27] MEDS: Potassium Chloride ER 20 MEQ TAB.ER.PRT 40 MEQ PO ×2 (11:51→20:14)
--- NOTE | 2022-11-27 12:30 | PC.NURSE ---
Pt fed lunch. Full bed change done, pt repositioned for comfort.
[2022-11-27 14:04] VITALS: BP 139/70; PULSE 66; RESP 16; TEMP 36.5; O2SAT 96
--- NOTE | 2022-11-27 19:52 | MHC.CM.ED ---
Addendum entered by Brandy Osborn 11/27/22 20:09: Primary RN and Clinical coordinator aware of plan of care. Original Note: Only [facility] is following. 41 referrals made. Will not consider until patient is sitter free and prn psych med free for 24-48 hours. Family aware. Abhijeet ARELLANO aware. Will d/c prn zyprexa. Pt has zyprexa ordered daily and at hs. If patient needs more medication, will consult psych. Family has meeting with the [employer] tomorrow 11/28. Family visiting and very supportive. Patient calm and pleasant. CM following for discharge needs.
[2022-11-27] MEDS: Atorvastatin Calcium 40 MG TABLET PO (20:14)
[2022-11-27] MEDS: Gabapentin 400 MG CAPSULE PO (20:14)
[2022-11-27] MEDS: OLANZapine 5 MG TABLET PO (20:14)
[2022-11-27 21:35] VITALS: BP 138/58; PULSE 85; RESP 18; TEMP 36.3; O2SAT 94
--- NOTE | 2022-11-27 22:40 | PC.NURSE ---
This RN assumed care at 1900. Patient currently on 1:1 with sitter present. Patient took pills whole with applesauce and strawberry shake. Changed with DIAZO TECHNICIAN, currently resting in bed with sitter present, vital signs stable at this time.
[2022-11-28 07:41] VITALS: BP 111/51; PULSE 80; RESP 14; O2SAT 99
[2022-11-28] MEDS: amLODIPine Besylate 10 MG TABLET PO (09:27)
[2022-11-28] MEDS: Furosemide 40 MG TABLET PO (09:27)
[2022-11-28] MEDS: allopurinoL 100 MG TABLET PO (09:27)
[2022-11-28] MEDS: Finasteride 5 MG TABLET PO (09:27)
[2022-11-28] MEDS: Amiodarone HCL 200 MG TABLET PO (09:27)
[2022-11-28] MEDS: Apixaban 5 MG TABLET PO ×2 (09:28→20:19)
[2022-11-28] MEDS: Folic Acid 1 MG TABLET PO (09:28)
[2022-11-28] MEDS: OLANZapine 2.5 MG TABLET PO (09:28)
[2022-11-28] MEDS: Potassium Chloride ER 20 MEQ TAB.ER.PRT 40 MEQ PO ×2 (09:28→20:19)
[2022-11-28] MEDS: Sertraline HCL 50 MG TABLET PO (09:28)
--- NOTE | 2022-11-28 13:32 | MHC.CM.ED ---
Patient remains in ER overflow. Has sitter documented. Nursing staff has been asked to discharge sitter if safe to do so. [facility] is only facility still following patient. Patient will need to be sitter free and not receive any PRN antipsychotic medications. Continue to monitor for d/c needs.
[2022-11-28 15:47] VITALS: BP 154/83; PULSE 110; RESP 20; O2SAT 93
--- NOTE | 2022-11-28 17:09 | MHC.EDTECH ---
Patient given tray and feed
--- NOTE | 2022-11-28 17:36 | MHC.CM.ED ---
Pt daughter/HCP Nimco here to sign paperwork for [facility]. Pt to be transferred to facility for LTC 11/29 at 10 am via BLS.
--- NOTE | 2022-11-28 20:03 | MHC.EDTECH ---
Pad changed and patient repostioned
[2022-11-28] MEDS: Atorvastatin Calcium 40 MG TABLET PO (20:19)
[2022-11-28] MEDS: Gabapentin 400 MG CAPSULE PO (20:19)
[2022-11-28] MEDS: OLANZapine 5 MG TABLET PO (20:19)
--- NOTE | 2022-11-28 21:42 | MHC.EDTECH ---
Patient used urinal
[2022-11-28 23:44] VITALS: BP 147/68; PULSE 96; RESP 20; TEMP 36.9; O2SAT 97
[2022-11-29] MEDS: OLANZapine 2.5 MG TABLET PO ×4 (00:20→17:06)
[2022-11-29 07:34] VITALS: PULSE 68; RESP 20; TEMP 36.3; O2SAT 94
--- NOTE | 2022-11-29 07:36 | PC.NURSE ---
this nurse attempted to call nurse to [facility], this nurse was told by Stella- who answered the phone that she doesn't have the patient as coming today but their call center coordinator wasnt in as of yet so she could have it set up and they weren't told of the admit. this nurse requested that they call us back to obtain report when they find out where in the facility the patient will be and that an ambulance has already been booked for the patient to go to the facility for 10 am. Stella ensured this will be taken care of and took our number to have a return call.
--- NOTE | 2022-11-29 07:48 | PC.NURSE ---
[facility] admissions Zahida spoke with this nurse about this patient, currently they have no referral for this patient to go to their facility. This nurse then spoke with our test case developer Corinne who said that [facility] that they were still in search for a facility for him. this nurse then called the medical assistant secretary to tell her that there will be no discharge for the patient and if an ambulance has been booked that it should be cancelled.
--- NOTE | 2022-11-29 08:19 | PC.NURSE ---
per overnight nurse, patient was awake and restless throughout the night and was told to allow the patient to sleep as he had just fallen asleep prior to this nurse taking report. pt is currently sleeping, RR and O2 sat was wnl, chest rise equil bilaterally, fall precautions intact, call [place] within reach, will continue to monitor.
--- NOTE | 2022-11-29 09:36 | PC.NURSE ---
this nurse is holding off giving patient am meds as pt is currently sleeping and hadnt slept. will reassess shortly
[2022-11-29] MEDS: Omeprazole 20 MG CAPSULE.DR PO (10:29)
[2022-11-29] MEDS: Sertraline HCL 50 MG TABLET PO (10:29)
[2022-11-29] MEDS: Furosemide 40 MG TABLET PO (10:29)
[2022-11-29] MEDS: amLODIPine Besylate 10 MG TABLET PO (10:29)
[2022-11-29] MEDS: Folic Acid 1 MG TABLET PO (10:30)
[2022-11-29] MEDS: Amiodarone HCL 200 MG TABLET PO (10:30)
[2022-11-29] MEDS: Apixaban 5 MG TABLET PO ×2 (10:30→22:04)
[2022-11-29] MEDS: Potassium Chloride ER 20 MEQ TAB.ER.PRT 40 MEQ PO ×2 (10:33→22:03)
[2022-11-29] MEDS: allopurinoL 100 MG TABLET PO (10:34)
[2022-11-29] MEDS: Finasteride 5 MG TABLET PO (10:34)
--- NOTE | 2022-11-29 12:15 | MHC.CM.ED ---
Patient remains in ER overflow. Clinical updates sent to [facility] at [facility]. Received notification from [facility] that they would be willing to review patient. Requested clinical info be sent via [facility]. Info sent. [facility] requesting copy of MH application. T/W explained patient's , Adali, was going to meet with [employer] on 11/28. [facility] . Will provide to patient's when she is on-site. Continue to monitor for d/c needs.
[2022-11-29 14:00] VITALS: BP 120/60; PULSE 64; RESP 20; TEMP 36.6; O2SAT 100
--- NOTE | 2022-11-29 15:00 | PC.NURSE ---
pt activity increased as he repeatedly set off the bed alarm, pt was undirectable as he became agitated with staff while trying to redirect. pt bed moved from bed 1 to bed 3 to have a better visual presence of the patient, pt also medicated with prn med. will continue to monitor.
--- NOTE | 2022-11-29 15:31 | PC.NURSE ---
patient oob with heavy 2 person assist to commode for BM, pt then returned back to a recliner chair, chair alarm placed for fall precautions/red socks intact, call [place] within reach, will continue to monitor.
--- NOTE | 2022-11-29 17:07 | PC.NURSE ---
patient continues to be agitated and hallucinating, pt has been sitting in recliner chair speaking to, yelling at and hitting his who he states is in the bed next to him, he states shes not listening to me , pt repeatedly attempting to get out of recliner and has been difficult to redirect, this nurse called provider who ordered additional zyprexa, pt was medicated per order, will continue to monitor.
--- NOTE | 2022-11-29 17:33 | PC.NURSE ---
pt continues to be agitated/hallucinating- pt was assisted from recliner to commode with 2 person-heavy assist, pt was then assisted from commode back to his bed. pt stated he is speaking with his exgirlfriend who he states and believes is at bedside- pt has no visitors at this time. this nurse called to speak with charge- jose cruz answered, she was notified of what was occurring with the patient and if he doesnt settle that the patient may need a sitter, we will continue to monitor the effectiveness of the medication recently given and reassess the need. fall precautions intact at this time.
--- NOTE | 2022-11-29 18:11 | PC.NURSE ---
the patient continues to be agitated and unsettled/hallucinating. this nurse notified the charge of the need for a sitter overnight, also notified the nursing auto rental supervisor, a sitter will be provided for the patient, the ED provider also put in a psych consult for the patient. this nurse sat at bedside with the patient to keep him safe as he continue to set off the bed alarm as well as the camera alarm. the patients arrived and we discussed why the patient was moved out of room 1 to room 3 for safety, patient stated that she had issues with him every night starting around 4pm through the entire night- this nurse also had noted that the patients increased activity and excessive agitation began late afternoon and continues despite medication administration. the stated she had medicated him at home without relief as well, she states that she was unable to handle him at home. She stated a second time that it was very difficult for her in the evening and overnight to care for her .
--- NOTE | 2022-11-29 19:13 | MHC.CM.ED ---
CM spoke with provider with regards to use of prn zyprexa and inability to place patient at a facility with prn antipsychotics. Provider placed consult to psych for medication management, with request to d/c prn meds.
[2022-11-29 19:36] VITALS: BP 140/74; PULSE 74; RESP 20; TEMP 36.6; O2SAT 100
[2022-11-29] MEDS: Gabapentin 400 MG CAPSULE PO (22:03)
[2022-11-29] MEDS: Atorvastatin Calcium 40 MG TABLET PO (22:03)
[2022-11-29] MEDS: OLANZapine 5 MG TABLET PO (22:04)
--- NOTE | 2022-11-29 22:15 | PC.NURSE ---
Medications administered as per MAR in applesauce. PT reports no pain. Needing frequent redirection from sitter as he continues to attempts to get out of bed. PT disoriented.
--- NOTE | 2022-11-30 | ECG_ITS ---
Test Reason : QTC PROLONG Blood Pressure : / mmHG Vent. Rate : 073 BPM Atrial Rate : 073 BPM P-R Int : 202 ms QRS Dur : 136 ms QT Int : 468 ms P-R-T Axes : 105 -33 000 degrees QTc Int : 515 ms Sinus rhythm with occasional Premature ventricular complexes Left axis deviation Right bundle branch block Inferior infarct (cited on or before 24-NOV-2022) Abnormal ECG When compared with ECG of 24-NOV-2022 00:25, Premature ventricular complexes are now Present Questionable change in initial forces of Inferior leads Referred By: Keena Whitehead Electronically Signed By:GI PACE
[2022-11-30 06:57] VITALS: BP 116/53; PULSE 66; RESP 14; TEMP 36.6; O2SAT 95
--- NOTE | 2022-11-30 08:48 | PC.NURSE ---
Pt sleeping, respirations even and unlabored, skin pwd, no apparent distress. 1:[address] for safety. Per night nurse, pt has tendency to try to get out of bed
--- NOTE | 2022-11-30 10:43 | PC.NURSE ---
pt has been sleeping, respirations even and unlabored. 0900 medications held due to patient finally being able to sleep after having been agitated all night. LUIS ANGEL Vaughn aware and will be taking over for patient at 1100
--- NOTE | 2022-11-30 10:55 | PC.NURSE ---
report given to LUIS ANGEL Beltran at [facility]
[2022-11-30 12:53] VITALS: BP 134/69; PULSE 68; RESP 16; O2SAT 99
[2022-11-30] MEDS: OLANZapine 2.5 MG TABLET PO (12:54)
[2022-11-30] MEDS: Finasteride 5 MG TABLET PO (12:54)
[2022-11-30] MEDS: Folic Acid 1 MG TABLET PO (12:54)
[2022-11-30] MEDS: allopurinoL 100 MG TABLET PO (12:54)
[2022-11-30] MEDS: Furosemide 40 MG TABLET PO (12:54)
[2022-11-30] MEDS: Amiodarone HCL 200 MG TABLET PO (12:54)
[2022-11-30] MEDS: amLODIPine Besylate 10 MG TABLET PO (12:55)
[2022-11-30] MEDS: Apixaban 5 MG TABLET PO ×2 (12:55→20:45)
[2022-11-30] MEDS: Sertraline HCL 50 MG TABLET PO (12:55)
[2022-11-30 14:09] LABS: Alanine Aminotransferase 16 U/L (0-40); Albumin Level 3.1 g/dL (3.5-5.0); Alkaline Phosphatase 99 U/L (39-117); Anion Gap 12 (12-20); Aspartate Amino Transferase 24 U/L (5-37); Bilirubin Total 0.4 mg/dL (0.0-1.0); Blood Urea Nitrogen 13 mg/dL (9-16); Calcium 8.6 mg/dL (8.4-10.2); Carbon Dioxide 27 mmol/L (22-29); Chloride 105 mmol/L (96-108); Creatinine Clr Calc Pharmacy 79.1; Estimated Glomerular Filt Rate > 60; Glucose Random 112 mg/dL (60-115); Potassium 3.7 mmol/L (3.3-5.1); Sodium 140 mmol/L (135-145); Total Protein 6.4 g/dL (6.5-8.0)
[2022-11-30 14:31] LABS: TSH reflex Free T4 1.56 uIU/mL (0.32-4.0)
[2022-11-30 15:37] VITALS: BP 124/61; PULSE 72; RESP 16; O2SAT 99
[2022-11-30 15:40] LABS: Folate 13.9 ng/mL (> or = 4.0); Vitamin B12 664 pg/mL (200-900)
--- NOTE | 2022-11-30 16:29 | P.CNPS_ITS ---
History of Present Illness Date of Service: 11/30/2022 Chief Complaint: DEMENTIA WAS BEING AGGRESSIVE Reason for Consult: combative behaviors Discussed with referring provider: Yes Sources of Information: patient interviewed, chart reviewed and crisis/core team assessment reviewed HPI Narrative: Mr. Huang is a 82 year-old male with hx of advanced dementia. He is awaiting LT placement, previously living with his who is unable to care for him. Pt has been presenting with increased confusion, visual hallucination of animals and people mostly at night and in the evening, trying to ambulate on his own without awareness of his own safety. He has had difficulty falling asleep and st aying asleep. He has been taking olazapine 5mg po qhs, with additional doses of olanzapine 2.5mg. He has had a total of 6 doses of prn olanzapine since he was admitted to the hospital. Per nursing, olanzapine has not been very effective. Pt has not had any significant aggressive behaviors and for the most part he is in bed and ambulated with 2 people assist. Per , pt at home was up most nights, reporting seeing animals and people that were not there. Pt seen in ED. He is lying in bed, in NAD. He is pleasant on approach. He is able to tell this senior mortgage underwriter that this is the hospital. He does not know since when he has been here or why. He denies any physical concern. But also unable to provide more information. Past Psychiatric History: unable to collect Hx Medical Evaluation Reviewed: Yes [facility] Medical History Atherosclerotic cardiovascular disease Dementia with behavioral disturbance Embolic stroke Erosive osteoarthritis Essential hypertension Gout History of cardioversion Obesity (BMI 30-39.9) JODI on CPAP Osteoarthritis PAF (paroxysmal atrial fibrillation) Prostate cancer Psoriatic arthritis Pure hypercholesterolemia Surgical History Hx of cardiac cath Hx of cholecystectomy Hx of colonoscopy Hx of eye surgery Stented coronary artery Family History: unable to collect history Social History: has been living with his until now. reported he worked at [employer]. Trauma History: unknown Diagnostics Vital Signs (24Hr): Vital Signs - 24 hr 11/29/22 19:36 11/30/22 06:57 11/30/22 12:53 Temperature 98 F 97.8 F Pulse Rate 74 66 68 Respiratory Rate 20 14 16 Blood Pressure 140/74 H 116/53 L 134/69 Pulse Oximetry 100 95 99 Oxygen Delivery Method Room Air Room Air Room Air 11/30/22 15:37 Temperature Pulse Rate 72 Respiratory Rate 16 Blood Pressure 124/61 Pulse Oximetry 99 Oxygen Delivery Method Room Air BMI result Body Mass Index 33.8 Labs 11/23/22 23:17 11/30/22 13:45 Labs: Laboratory Results - last 48 hr 11/30/22 11/30/22 11/30/22 13:45 13:45 13:45 Sodium 140 Potassium 3.7 Chloride 105 Carbon Dioxide 27 Anion Gap 12 BUN 13 Creatinine 0.80 Estim Creat Clear Calc 79.1 Estimated GFR > 60 Random Glucose 112 Calcium 8.6 D Magnesium 2.0 Total Bilirubin 0.4 AST 24 ALT 16 Alkaline Phosphatase 99 Total Protein 6.4 L Albumin 3.1 L Vitamin B12 664 Folate 13.9 TSH 1.56 Imaging Radiology Impressions: ITS Impressions KUB X-Ray 11/24/22 00:49 IMPRESSION: Large colonic stool burden. Mental Status Exam Mental Status Exam Narrative: Appearance:wearing hospital gown, fair hygiene, in NAD Behavior:cooperative Speech: mumbles at times, spontaneous Psychomotor:no agitation or retardation noted TP: derailment TC:going home Mood: okay Affect: congruent SI: denies HI: none VH/AH: on and off, especially in evening and nights pt sees animals and people who are not there. Sometimes during the day but less so. Delusions: some suspiciousness, no overt delusional content noted or reported. Insight/judgment: impaired x 2. Memory/cog: alert, not oriented to situation, month, date or say. He does say this is a hospital. Medications Medications Current Medications Allopurinol (Allopurinol 100 Mg Tablet) 100 mg PO DAILY [facility]ÚL Last Admin: 11/30/22 12:54 Dose: 100 mg Amiodarone HCl (Amiodarone Hcl 200 Mg Tablet) 200 mg PO DAILY [facility] Last Admin: 11/30/22 12:54 Dose: 200 mg Amlodipine Besylate (Amlodipine Besylate 10 Mg Tablet) 10 mg PO DAILY [facility]; Protocol Last Admin: 11/30/22 12:55 Dose: 10 mg Apixaban (Apixaban 5 Mg Tablet) 5 mg PO BID [facility] Last Admin: 11/30/22 12:55 Dose: 5 mg Atorvastatin Calcium (Atorvastatin Calcium 40 Mg Tablet) 40 mg PO BEDTIME [facility] Last Admin: 11/29/22 22:03 Dose: 40 mg Finasteride (Finasteride 5 Mg Tablet) 5 mg PO DAILY [facility] Last Admin: 11/30/22 12:54 Dose: 5 mg Folic Acid (Folic Acid 1 Mg Tablet) 1 mg PO DAILY [facility] Last Admin: 11/30/22 12:54 Dose: 1 mg Furosemide (Furosemide 40 Mg Tablet) 40 mg PO DAILY [facility]; Protocol Last Admin: 11/30/22 12:54 Dose: 40 mg Gabapentin (Gabapentin 400 Mg Capsule) 400 mg PO BEDTIME [facility] Last Admin: 11/29/22 22:03 Dose: 400 mg Methotrexate (Methotrexate Sodium 2.5 Mg Tablet) 20 mg PO CHARLES RAÚL Last Admin: 11/25/22 09:36 Dose: 20 mg Nitroglycerin (Nitroglycerin 0.4 Mg Tab.Subl) 0.4 mg SUBLINGUAL Q5M PRN PRN Reason: chest pain Nystatin (Nystatin Powder 15 Gm Bottle) 1 appl TOPICAL TID PRN; Protocol PRN Reason: Rash Nystatin/Triamcinolone Acetonide (Nystatin/Triamcinolone Oint 15 Gm Tube) 1 appl TOPICAL BID PRN; Protocol PRN Reason: Rash Olanzapine (Olanzapine 5 Mg Tablet) 5 mg PO BEDTIME [facility] Last Admin: 11/29/22 22:04 Dose: 5 mg Omeprazole (Omeprazole 20 Mg Capsule.Dr) 20 mg PO DAILY@0700 [facility] Potassium Chloride (Potassium Chloride Er 20 Meq Tab.Er.Prt) 40 meq PO BID [facility] Last Admin: 11/30/22 12:55 Dose: Not Given Quetiapine Fumarate (Quetiapine Fumarate 50 Mg Tablet) 50 mg PO BID@1400,2100 [facility] Sertraline HCl (Sertraline Hcl 50 Mg Tablet) 50 mg PO DAILY [facility] Last Admin: 11/30/22 12:55 Dose: 50 mg Allergies Allergies Allergy/AdvReac Type Severity Reaction Status Date / Time penicillin V Allergy Intermediate hives Verified 11/23/22 22:39 Assessment & Plan Assessment & Plan (1) Major neurocognitive disorder due to multiple etiologies, with psychotic disturbance: Status: Acute Code(s): F02.82 - Dementia in other diseases classified elsewhere, unspecified severity, with psychotic disturbance Plan Mr. Huang is an 82 year-old male with hx of advanced dementia awaiting placement. He has had difficulty sleeping at night, seeing animals and people that are not there, which is not new. I do not suspect these are s/s of delirium but manifestation of underlying dementia, which most likely is of mixed etiology. Pt has been taking olanzapine with limited effect in terms of sleep and VH. I discussed with pt's who is his HCP switching from olanzapine to seroquel. Note that pt has right bundle branch block and QTc on admission was 544ms, today his Qtc 515ms (with corrected formula for RBBB, Qtc would be 460ms). 1. Continue to monitor QTc (adjusted by RBBB), maintain K>4, Mg>2. Will recheck ekg in few days to see effect of seroquel on QTc. We also discuss starting exelon as if may help with VH, if some element of Lewy Body Dementia. 2. Start Seroquel 50mg po at 3pm and 9pm. Hold for excessive sedation 3. d/c olanzapine. d/c prn doses. will continue to monitor and adjust schedule medications as needed. 4. May consider starting exelon 1.5mg po BID Total time managing care of this patient today ____ minutes.
--- NOTE | 2022-11-30 17:55 | MHC.CM.ED ---
Pt assessed by [facility] receptionist. Will speak with and make medication changes. Pt needs to be prn and sitter free 24-48 hours prior to LTC acceptance.
--- NOTE | 2022-11-30 18:25 | MHC.CM.ED ---
Spoke with , Adali, who is visiting with her . Adali tells CM that she is working with [employer] on the MH application for her . States she will need to pay down some funds. Adali will meet with them again on Saturday. Adali aware that CM will need a copy of the MH application so we can share it with interested facilities. [facility] is following. Adali would like a local facility if possible. She is aware that CM may need to refer farther. Adali was updated regarding psych referral and medication adjustments. [facility] Keena MARTINS called and spoke with her.
[2022-11-30] MEDS: Gabapentin 400 MG CAPSULE PO (20:43)
[2022-11-30] MEDS: OLANZapine 5 MG TABLET PO (20:45)
[2022-11-30] MEDS: QUEtiapine Fumarate 50 MG TABLET PO (20:45)
[2022-11-30] MEDS: Atorvastatin Calcium 40 MG TABLET PO (20:46)
--- NOTE | 2022-11-30 20:52 | PC.NURSE ---
pt medicated according to camila with apple sauce. 1:[address]
[2022-11-30 23:44] VITALS: BP 119/74; PULSE 66; RESP 16; TEMP 36.9; O2SAT 95
--- NOTE | 2022-11-30 23:45 | MHC.EDTECH ---
THIS PCT ASSUMED CARE OF PT AT 2300 ,VITALS SIGN TAKEN ,PT WAS INCONTINENT OF URINE AND SMALL AMOUNT OF STOOL ,CARE GIVEN ,TELE SITTER IN ROOM AND BED ALARM ON .
[2022-12-01] VITALS (11 sets, daily range): BP systolic 105–133; BP diastolic 51–64; PULSE 59–83; RESP 14–17; TEMP 35.3–37.1; O2SAT 95–100
--- NOTE | 2022-12-01 07:12 | PC.NURSE ---
assumed care of pt at this time. pt sleeping in bed; respirations even and unlabored sats 95% RA. 1:1 sitter at bedside. call livingston within reach.
[2022-12-01] MEDS: Finasteride 5 MG TABLET PO (12:25)
[2022-12-01] MEDS: allopurinoL 100 MG TABLET PO (12:25)
[2022-12-01] MEDS: Amiodarone HCL 200 MG TABLET PO (12:27)
[2022-12-01] MEDS: Sertraline HCL 50 MG TABLET PO (12:27)
[2022-12-01] MEDS: Apixaban 5 MG TABLET PO ×2 (12:28→20:06)
[2022-12-01] MEDS: amLODIPine Besylate 10 MG TABLET PO (12:33)
[2022-12-01] MEDS: Furosemide 40 MG TABLET PO (12:33)
--- NOTE | 2022-12-01 12:41 | PC.NURSE ---
unable to administer meds per mar; pt sleeping; PA aware. able to give most meds per MAR.
--- NOTE | 2022-12-01 13:06 | PC.NURSE ---
hypothermic 95.4F rectal temp; sats 95% RA, VSS, no cough/n/v/d present. pt denies cp. Mary ARELLANO aware. pending labs. warm blankets placed on pt.
[2022-12-01 13:36] LABS: MANUAL DIFF FLAG NO
[2022-12-01 13:37] LABS: Eosinophils Absolute Auto 0.2 X10*3/uL (0.0-0.4); Eosinophils Percent Auto 7.6 % (0-4); Hematocrit 37.7 % (42.0-52.0); Hemoglobin 12.1 g/dl (14.0-18.0); Imm Gran Abs Auto 0.01 X10*3/uL (0.00-0.03); Imm Gran Pct Auto 0.3 % (0.0-0.4); Lymphocytes Absolute Auto 0.5 X10*3/uL (1.2-4.9); Lymphocytes Percent Auto 17.2 % (20-40); Mean Corpuscular HGB Conc 32.1 g/dl (31.0-36.0); Mean Corpuscular Hemoglobin 30.7 pg (27.0-33.0); Mean Corpuscular Volume 95.7 fL (80.0-98.0); Mean Platelet Volume 9.7 fL (9.4-12.4); Monocytes Absolute Auto 0.4 X10*3/uL (0.1-1.2); Monocytes Percent Auto 11.6 % (2-11); Neutrophils Absolute Auto 1.9 x10*3/uL (2.0-8.3); Neutrophils Percent Auto 62.3 % (45-73); Platelet Count 258 X10*3/uL (160-400); Red Blood Count 3.94 X10*6/uL (4.60-5.80); Red Cell Distribution Width 14.9 % (11.0-16.0)
[2022-12-01 13:51] LABS: IDNOW Serial# BCCEAD1C
[2022-12-01 13:52] LABS: COVID-19 Test Negative (Negative)
[2022-12-01 13:54] LABS: Alanine Aminotransferase 18 U/L (0-40); Albumin Level 3.3 g/dL (3.5-5.0); Alkaline Phosphatase 98 U/L (39-117); Anion Gap 14 (12-20); Aspartate Amino Transferase 25 U/L (5-37); Bilirubin Direct 0.2 mg/dL (0.0-0.5); Bilirubin Total 0.3 mg/dL (0.0-1.0); Blood Urea Nitrogen 15 mg/dL (9-16); Calcium 8.9 mg/dL (8.4-10.2); Carbon Dioxide 27 mmol/L (22-29); Chloride 106 mmol/L (96-108); Creatinine Clr Calc Pharmacy 83.3; Estimated Glomerular Filt Rate > 60; Glucose Random 86 mg/dL (60-115); Magnesium 2.1 mg/dL (1.6-2.6); Potassium 3.6 mmol/L (3.3-5.1); Sodium 143 mmol/L (135-145); Total Protein 6.5 g/dL (6.5-8.0)
--- NOTE | 2022-12-01 14:16 | PC.NURSE ---
straight cathed; 150 mL clear dark yellow urine. UA sent to lab; pt tolerated well. rectal temp remains 95.6F; Mary ARELLANO aware.
[2022-12-01 14:22] LABS: Appearance Urine Clear; Color Urine Yellow; Glucose Urine UA Negative (Negative); Leukocyte Esterase Urine Trace (Negative); Nitrite Urine Negative (Negative); PH 6.5 (5.0-9.0); UMIC TRIGGER UACC YES; Urine Blood Trace (Negative); Urine Ketones Negative (Negative); Urine Protein Negative (Neg-Trace)
[2022-12-01 14:37] LABS: Bacteria Urine None Seen (None Seen); Calcium Oxalate Crystals Urine Present; Hyaline Casts Urine 0-2 /LPF (0-2); RBC Urine 0-2 /HPF (0-2); Squamous Epithelial Cell Urine 0-2 /HPF (0-2); WBC Urine 0-5 /HPF (0-5)
[2022-12-01] MEDS: QUEtiapine Fumarate 50 MG TABLET PO ×2 (16:24→21:48)
--- NOTE | 2022-12-01 17:38 | PC.NURSE ---
pt temp return to WNL; last rectal temp 97.6F. pt appears more alert. respirations even and unlabored. bed alarm armed. pt assisted with toileting by tech. all needs met at this time. call livingston within reach.
--- NOTE | 2022-12-01 19:05 | PC.NURSE ---
this RN assumed care of patient at 1900, resting comfortably with visitor at bedside. Pt verbalizes comfort at this time, respirations even and unlabored, skin pwd
[2022-12-01] MEDS: Gabapentin 400 MG CAPSULE PO (20:06)
[2022-12-01] MEDS: Atorvastatin Calcium 40 MG TABLET PO (20:06)
[2022-12-01] MEDS: Potassium Chloride ER 20 MEQ TAB.ER.PRT 40 MEQ PO (20:06)
--- NOTE | 2022-12-01 22:00 | PC.NURSE ---
pt medicated per JUN, pt ate medications with pudding and applesauce. Offers no complaints to this RN. Alert and oriented x1, respirations even and unlabored, skin pwd. Assisted patient with using urinal
--- NOTE | 2022-12-02 01:09 | PC.NURSE ---
pt sleeping at this time, respirations equal and unlabored, skin pwd, pt changed approximately 30 minutes prior with new bed protector and blankets. Continue plan of care for PT/CM managment review
[2022-12-02 05:29] VITALS: BP 107/62; PULSE 89; RESP 17; TEMP 36.4; O2SAT 97
[2022-12-02 06:00] VITALS: PULSE 63; RESP 17; O2SAT 94
--- NOTE | 2022-12-02 07:31 | PC.NURSE ---
patient currently sleeping, vss, fall precautions intact, camera intact, will attempt to wake patient to medicate shortly, call livingston within reach, will continue to monitor.
--- NOTE | 2022-12-02 07:37 | PC.NURSE ---
this nurse called pharmacy about possibly retiming medications that are scheduled for 7, 8 am as patient is not awake at these times, attempts to wake the patient on multiple days early in the am are unsuccessful as he has been up during the night. pharmacy to look at early am medications and see if they can be changed.
[2022-12-02 08:59] VITALS: BP 126/59; PULSE 67; RESP 14; O2SAT 98
[2022-12-02] MEDS: Furosemide 40 MG TABLET PO (09:01)
[2022-12-02] MEDS: Omeprazole 20 MG CAPSULE.DR PO (09:01)
[2022-12-02] MEDS: Sertraline HCL 50 MG TABLET PO (09:01)
[2022-12-02] MEDS: Apixaban 5 MG TABLET PO ×2 (09:01→19:55)
[2022-12-02] MEDS: allopurinoL 100 MG TABLET PO (09:02)
[2022-12-02] MEDS: Folic Acid 1 MG TABLET PO (09:02)
[2022-12-02] MEDS: Potassium Chloride ER 20 MEQ TAB.ER.PRT 40 MEQ PO ×2 (09:02→19:56)
[2022-12-02] MEDS: amLODIPine Besylate 10 MG TABLET PO (09:02)
[2022-12-02] MEDS: Amiodarone HCL 200 MG TABLET PO (09:14)
[2022-12-02] MEDS: Finasteride 5 MG TABLET PO (09:36)
--- NOTE | 2022-12-02 09:38 | PC.NURSE ---
vss, pt not being cooperative while administering medications. had to sternal rub pt to awake so medications could be administered. pt somewhat arousable to sternal rub. medications crushed/mixed/administered with vanilla pudding.
--- NOTE | 2022-12-02 10:23 | HE.PHANOTE ---
RE: CHANGE OF TIMING ON MORNING MEDICATIONS Spoke with nursing about patient having difficulty rousing in morning to take medications. Reviewed administration times over the last week and noted that they are being given on average about 2 hours late. Moved administration times on all scheduled morning medications back by 2 hours to hopefully make it easier for nursing to allow patient to sleep and still take medications in morning.
--- NOTE | 2022-12-02 11:29 | PC.NURSE ---
pt sleeping, fall precautions intact, patient safety monitor intact, call livingston within reach, will continue to monitor.
[2022-12-02 14:00] VITALS: BP 121/63; PULSE 73; RESP 16; TEMP 36.7; O2SAT 98
[2022-12-02] MEDS: QUEtiapine Fumarate 50 MG TABLET PO ×3 (14:24→20:18)
--- NOTE | 2022-12-02 14:45 | PC.NURSE ---
patient woke to verbal stimulus, vss, pt medicated per order- pills crushed in pudding as he has been cheeking full tablets, fall precautions intact, pt incontinent of large amount of urine- full bed change performed, pt washed up/ lotion and powder applied, call livingston within reach, will continue to monitor.
--- NOTE | 2022-12-02 15:32 | PC.NURSE ---
pt awake and resting comfortably in no apparent distress. lights dimmed with call livingston placed within reach.
--- NOTE | 2022-12-02 18:44 | PC.NURSE ---
spoke with this nurse and said she was concerned that her wasnt waking up earlier in the morning, this nurse explained to the that the patient has been awake all night for most nights, we also explained that the provider had started him on new medications which this nurse has noticed a big difference in the patient throughout today. He was dozing on and off this morning- around 1300 he refused lunch but has been fully awake and non-combative without hallucinations since. patient has needed redirecting as he continuously sets off the bed alarm/camera alarm trying to get oob on his own. pts also stated she has seen an improvement in him today. this nurse told the that sometimes it takes a little while for the body to get fully adjusted to new medications so hopefully we will see continued improvement and the patient will sleep better at night and be awake more for longer periods of time earlier in the day.
[2022-12-02] MEDS: Gabapentin 400 MG CAPSULE PO (19:55)
[2022-12-02] MEDS: Atorvastatin Calcium 40 MG TABLET PO (19:56)
--- NOTE | 2022-12-02 20:20 | PC.NURSE ---
1st serquoel po wasted, pt dropped on floor. pharmacy aware
--- NOTE | 2022-12-02 21:13 | PC.NURSE ---
pt restless, repositioned for comfort
[2022-12-02] MEDS: OLANZapine 10 MG TABLET PO (21:44)
--- NOTE | 2022-12-02 22:01 | PC.NURSE ---
pt medicated with 10mgof Zyprexa po
--- NOTE | 2022-12-03 07:30 | PC.NURSE ---
Pt currently sleeping, no apparent pain or discomfort noted, sitter at bedside.
--- NOTE | 2022-12-03 09:00 | ECG_ITS ---
Test Reason : QTC Prolongation Blood Pressure : / mmHG Vent. Rate : 069 BPM Atrial Rate : 069 BPM P-R Int : 222 ms QRS Dur : 138 ms QT Int : 482 ms P-R-T Axes : 093 -28 013 degrees QTc Int : 516 ms Sinus rhythm with 1st degree A-V block Right bundle branch block Cannot rule out Inferior infarct (cited on or before 24-NOV-2022) Abnormal ECG When compared with ECG of 30-NOV-2022 12:35, Premature ventricular complexes are no longer Present Referred By: Keena Whitehead Electronically Signed By:GI PACE
[2022-12-03] MEDS: amLODIPine Besylate 10 MG TABLET PO (11:49)
[2022-12-03] MEDS: Potassium Chloride ER 20 MEQ TAB.ER.PRT 40 MEQ PO ×2 (11:49→21:00)
[2022-12-03] MEDS: allopurinoL 100 MG TABLET PO (11:49)
[2022-12-03] MEDS: Furosemide 40 MG TABLET PO (11:49)
[2022-12-03] MEDS: Sertraline HCL 50 MG TABLET PO (11:49)
[2022-12-03] MEDS: Folic Acid 1 MG TABLET PO (11:50)
[2022-12-03] MEDS: Finasteride 5 MG TABLET PO (11:50)
[2022-12-03] MEDS: Apixaban 5 MG TABLET PO ×2 (11:50→21:01)
[2022-12-03] MEDS: Amiodarone HCL 200 MG TABLET PO (11:51)
[2022-12-03 15:10] VITALS: BP 124/64; PULSE 69; RESP 18; O2SAT 99
[2022-12-03 15:53] VITALS: BP 135/61; PULSE 70; RESP 16; TEMP 37; O2SAT 98
--- NOTE | 2022-12-03 15:54 | MHC.EDTECH ---
pt was incontinent of urine ,care given ,bedding change ,vitals sign taken ,pt resting quietly in bed .
[2022-12-03 18:36] VITALS: BP 132/68; PULSE 83; RESP 19; O2SAT 100
--- NOTE | 2022-12-03 18:37 | MHC.EDTECH ---
pt ate 50% dinner, drank 240 ml. pt intermittently sad, bursting into tears at random
[2022-12-03] MEDS: QUEtiapine Fumarate 50 MG TABLET PO (21:00)
[2022-12-03] MEDS: Atorvastatin Calcium 40 MG TABLET PO (21:00)
[2022-12-03] MEDS: Gabapentin 400 MG CAPSULE PO (21:01)
--- NOTE | 2022-12-03 21:11 | MHC.EDTECH ---
pt asked to go to bathroom. t/w assisted pt w urinal. pt void 400 ml continent.
[2022-12-03 23:54] VITALS: BP 119/58; PULSE 78; RESP 16; O2SAT 98
--- NOTE | 2022-12-04 07:35 | PC.NURSE ---
PT CONTINUES TO SLEEP AT THIS TIME, RESP EVEN AND UNLABORED. CAMERA AT BEDSIDE FOR FALL RISK.
[2022-12-04 09:22] VITALS: RESP 15
--- NOTE | 2022-12-04 09:38 | PC.NURSE ---
pt continues to sleep at this time. resp even and unlabored.
--- NOTE | 2022-12-04 11:09 | PC.NURSE ---
Just took over care of this patient. Patient is sleeping emerging technologies director at bedside and camera.
[2022-12-04] MEDS: Finasteride 5 MG TABLET PO (12:38)
[2022-12-04] MEDS: Folic Acid 1 MG TABLET PO (12:38)
[2022-12-04] MEDS: Apixaban 5 MG TABLET PO ×2 (12:38→20:34)
[2022-12-04] MEDS: allopurinoL 100 MG TABLET PO (12:39)
[2022-12-04] MEDS: Amiodarone HCL 200 MG TABLET PO (12:39)
[2022-12-04] MEDS: Furosemide 40 MG TABLET PO (12:39)
[2022-12-04] MEDS: Omeprazole 20 MG CAPSULE.DR PO (12:39)
[2022-12-04] MEDS: Sertraline HCL 50 MG TABLET PO (12:40)
[2022-12-04] MEDS: Potassium Chloride ER 20 MEQ TAB.ER.PRT 40 MEQ PO ×2 (12:40→20:34)
[2022-12-04] MEDS: amLODIPine Besylate 10 MG TABLET PO (12:40)
[2022-12-04] MEDS: QUEtiapine Fumarate 50 MG TABLET PO ×2 (12:43→20:34)
--- NOTE | 2022-12-04 15:38 | PM.PSYCN ---
History of Present Illness Date of Service: 12/04/2022 Chief Complaint: DEMENTIA WAS BEING AGGRESSIVE Reason for Consult: f/u Discussed with referring provider: Yes Sources of Information: patient interviewed, chart reviewed and crisis/core team assessment reviewed HPI Narrative: Interim Hx: Pt started on seroquel on 11/30 50mg po BID. It appears pt not sleeping most night, sleeping during the day. No combative behaviors. Pt sleeping during the day when this automatic typewriter inspector attempted to see him. EKG on Saturday no significant changes in QTc with seroquel. Past Psychiatric History: unable to collect Hx Medical Evaluation Reviewed: Yes [facility] Medical History Atherosclerotic cardiovascular disease Dementia with behavioral disturbance Embolic stroke Erosive osteoarthritis Essential hypertension Gout History of cardioversion Obesity (BMI 30-39.9) JODI on CPAP Osteoarthritis PAF (paroxysmal atrial fibrillation) Prostate cancer Psoriatic arthritis Pure hypercholesterolemia Surgical History Hx of cardiac cath Hx of cholecystectomy Hx of colonoscopy Hx of eye surgery Stented coronary artery Family History: unable to collect history Social History: has been living with his until now. reported he worked at [employer]. Trauma History: unknown Diagnostics Vital Signs (24Hr): Vital Signs - 24 hr 12/03/22 15:53 12/03/22 18:36 12/03/22 23:54 Temperature 98.6 F Pulse Rate 70 83 78 Respiratory Rate 16 19 16 Blood Pressure 135/61 132/68 119/58 L Pulse Oximetry 98 100 98 Oxygen Delivery Method Room Air Room Air Room Air 12/04/22 09:22 Temperature Pulse Rate Respiratory Rate 15 Blood Pressure Pulse Oximetry Oxygen Delivery Method BMI result Body Mass Index 33.8 Labs 12/01/22 13:25 12/01/22 13:25 Imaging Radiology Impressions: ITS Impressions [facility] X-Ray 11/24/22 00:49 IMPRESSION: Large colonic stool burden. Mental Status Exam Mental Status Exam Narrative: Pt sleeping, in NAD Medications Medications Current Medications Allopurinol (Allopurinol 100 Mg Tablet) 100 mg PO DAILY@1100 [facility] Last Admin: 12/04/22 12:39 Dose: 100 mg Amiodarone HCl (Amiodarone Hcl 200 Mg Tablet) 200 mg PO DAILY@1100 [facility] Last Admin: 12/04/22 12:39 Dose: 200 mg Amlodipine Besylate (Amlodipine Besylate 10 Mg Tablet) 10 mg PO DAILY@1100 [facility]; Protocol Last Admin: 12/04/22 12:40 Dose: 10 mg Apixaban (Apixaban 5 Mg Tablet) 5 mg PO BID@1099,2099 [facility] Last Admin: 12/04/22 12:38 Dose: 5 mg Atorvastatin Calcium (Atorvastatin Calcium 40 Mg Tablet) 40 mg PO BEDTIME [facility] Last Admin: 12/03/22 21:00 Dose: 40 mg Finasteride (Finasteride 5 Mg Tablet) 5 mg PO DAILY@1099 [facility] Last Admin: 12/04/22 12:38 Dose: 5 mg Folic Acid (Folic Acid 1 Mg Tablet) 1 mg PO DAILY@1099 [facility] Last Admin: 12/04/22 12:38 Dose: 1 mg Furosemide (Furosemide 40 Mg Tablet) 40 mg PO DAILY@1099 [facility]; Protocol Last Admin: 12/04/22 12:39 Dose: 40 mg Gabapentin (Gabapentin 400 Mg Capsule) 400 mg PO BEDTIME [facility] Last Admin: 12/03/22 21:01 Dose: 400 mg Methotrexate (Methotrexate Sodium 2.5 Mg Tablet) 20 mg PO Kaplan@1099 [facility] Nitroglycerin (Nitroglycerin 0.4 Mg Tab.Subl) 0.4 mg SUBLINGUAL Q5M PRN PRN Reason: chest pain Nystatin (Nystatin Powder 15 Gm Bottle) 1 appl TOPICAL TID PRN; Protocol PRN Reason: Rash Nystatin/Triamcinolone Acetonide (Nystatin/Triamcinolone Oint 15 Gm Tube) 1 appl TOPICAL BID PRN; Protocol PRN Reason: Rash Omeprazole (Omeprazole 20 Mg Capsule.Dr) 20 mg PO DAILY@0900 [facility] Last Admin: 12/04/22 12:39 Dose: 20 mg Potassium Chloride (Potassium Chloride Er 20 Meq Tab.Er.Prt) 40 meq PO BID@1099,2099 [facility] Last Admin: 12/04/22 12:40 Dose: 40 meq Quetiapine Fumarate (Quetiapine Fumarate 50 Mg Tablet) 50 mg PO BID@1399,2099 [facility] Last Admin: 12/04/22 12:43 Dose: 50 mg Sertraline HCl (Sertraline Hcl 50 Mg Tablet) 50 mg PO DAILY@1100 [facility] Last Admin: 12/04/22 12:40 Dose: 50 mg Allergies Allergies Allergy/AdvReac Type Severity Reaction Status Date / Time penicillin V Allergy Intermediate hives Verified 11/23/22 22:39 Assessment & Plan Assessment & Plan (1) Major neurocognitive disorder due to multiple etiologies, with psychotic disturbance: Status: Acute Code(s): F02.82 - Dementia in other diseases classified elsewhere, unspecified severity, with psychotic disturbance Plan 1.Continue to monitor over sedation during the day. He has been up most of the nights, will try to reverse cycle. 2. Monitor EKG, Qtc adjusted considering he has RBBB, Maintain K>4, Mg>2mg. 3. Noted Neutropenia and chronic Leukopenia. 4. No change in medication at this time 5. Awaiting placement. Total time managing care of this patient today ____ minutes.
[2022-12-04 16:08] VITALS: BP 111/53; PULSE 69; RESP 16; TEMP 36.4; O2SAT 99
--- NOTE | 2022-12-04 17:44 | PC.NURSE ---
Pt waking up and conversing with . Pt confused. Inc large amount of urine, changed and repositioned
--- NOTE | 2022-12-04 18:20 | MHC.CM.ED ---
CM spoke with patient's . States that she is still working with [employer] to complete the MH application. States she is almost done. CM explained that [facility] is still following and [facility] is following. Explained that patient is no longer getting prn medications, and that motion study technician is making some medication recommendations, as patient sleeps during the day and is awake all night. Explained to primary RN that patient needs to be sitter free for 2 days per facility. Pt remains pleasant, confused and essentially cooperative. Staff does not report any behaviors. CM following for discharge planning.
[2022-12-04] MEDS: Gabapentin 400 MG CAPSULE PO (20:34)
[2022-12-04] MEDS: Atorvastatin Calcium 40 MG TABLET PO (20:41)
[2022-12-04 21:16] VITALS: BP 117/59; PULSE 80; RESP 18; TEMP 37.2; O2SAT 99
--- NOTE | 2022-12-05 06:01 | PC.NURSE ---
pt slept during the shift, pleasant, calm, sitter present
--- NOTE | 2022-12-05 09:26 | PC.NURSE ---
pt currently asleep jazmine - sitter bedside w/ pt. eye in the beckie present. bed alarm turned on. call livingston placed within reach.
[2022-12-05] MEDS: Sertraline HCL 50 MG TABLET PO (12:04)
[2022-12-05] MEDS: Finasteride 5 MG TABLET PO (12:06)
[2022-12-05] MEDS: amLODIPine Besylate 10 MG TABLET PO (12:07)
[2022-12-05] MEDS: Amiodarone HCL 200 MG TABLET PO (12:07)
[2022-12-05] MEDS: Furosemide 40 MG TABLET PO (12:08)
[2022-12-05] MEDS: Apixaban 5 MG TABLET PO ×2 (12:08→20:21)
[2022-12-05] MEDS: Folic Acid 1 MG TABLET PO (12:09)
[2022-12-05] MEDS: allopurinoL 100 MG TABLET PO (12:10)
[2022-12-05] MEDS: Potassium Chloride ER 20 MEQ TAB.ER.PRT 40 MEQ PO ×2 (12:10→20:21)
[2022-12-05] MEDS: Omeprazole 20 MG CAPSULE.DR PO (12:10)
--- NOTE | 2022-12-05 12:16 | PC.NURSE ---
pt now awake. medications administered late d/t pt sleeping. all medications were administered non-crushed PO w/o complications per provider order. pt resting comfortably watching television and eating lunch. sitter bedside as well as video camera/monitor. call livingston placed within reach.
[2022-12-05] MEDS: QUEtiapine Fumarate 50 MG TABLET PO ×2 (13:07→20:21)
--- NOTE | 2022-12-05 13:09 | PC.NURSE ---
medication administered per provider order. pt restig comfortably watching television. bed alarm turned on. call livingston placed within reach.
[2022-12-05 14:02] VITALS: BP 98/55; PULSE 70; RESP 16; TEMP 36; O2SAT 99
[2022-12-05 15:48] VITALS: BP 118/69; PULSE 64; RESP 16; TEMP 36.9; O2SAT 98
--- NOTE | 2022-12-05 16:00 | MHC.EDTECH ---
THIS PCT ASSUMED CARE OF PT AT 1500 ,VITALS SIGN TAKEN ,PT IS COMFORTABLE ,BED ALARM ON .
--- NOTE | 2022-12-05 16:06 | MHC.EDTECH ---
THIS PCT ASSUMED CARE OF PT AT 1500 ,VITALS SIGN TAKEN ,PT WAS GIVEN A BED BATH ,BEDDING CHANGE ,WARM BLANKET GIVEN ,PATIENT DRANK 120 ML OF MEGHNA PETE .
--- NOTE | 2022-12-05 18:10 | MHC.EDTECH ---
PATIENT WAS FED ATE 80 % OF DINNER ,PATIENT AT BEDSIDE .
[2022-12-05] MEDS: Atorvastatin Calcium 40 MG TABLET PO (20:21)
[2022-12-05] MEDS: Gabapentin 400 MG CAPSULE PO (20:21)
--- NOTE | 2022-12-05 21:27 | PC.NURSE ---
Addendum entered by Nay Isaac RN 12/06/22 00:00: Pt voiced need for urinal - voided 500cc CYU Original Note: Assumed care at 1900. Pt cleaned, repositioned. Brief placed on pt d/t incontinence. Pt restless, agitated. Oriented to self only. Medicated per JUN. 1:1 sitter at bedside and camera in place.
[2022-12-05 22:00] VITALS: BP 127/61; PULSE 70; RESP 18; TEMP 36.2; O2SAT 96
[2022-12-06 06:40] VITALS: BP 136/73; PULSE 69; RESP 18; O2SAT 100
[2022-12-06] MEDS: Apixaban 5 MG TABLET PO ×2 (11:28→19:48)
[2022-12-06] MEDS: amLODIPine Besylate 10 MG TABLET PO (11:28)
[2022-12-06] MEDS: Furosemide 40 MG TABLET PO (11:28)
[2022-12-06] MEDS: Sertraline HCL 50 MG TABLET PO (11:28)
[2022-12-06] MEDS: Finasteride 5 MG TABLET PO (11:28)
[2022-12-06] MEDS: Omeprazole 20 MG CAPSULE.DR PO (11:28)
[2022-12-06] MEDS: Folic Acid 1 MG TABLET PO (11:28)
[2022-12-06] MEDS: Amiodarone HCL 200 MG TABLET PO (11:28)
[2022-12-06] MEDS: allopurinoL 100 MG TABLET PO (11:28)
[2022-12-06] MEDS: Potassium Chloride ER 20 MEQ TAB.ER.PRT 40 MEQ PO ×2 (11:28→19:48)
[2022-12-06 14:00] VITALS: BP 116/55; PULSE 67; RESP 20; TEMP 36.1; O2SAT 98
[2022-12-06] MEDS: QUEtiapine Fumarate 50 MG TABLET PO ×2 (14:30→19:48)
--- NOTE | 2022-12-06 14:30 | MHC.CM.ED ---
Met with pt who is holding in ED pending completion of [facility] application and LTC placement. Pt pleasant, confused but offered no complaints. Sitter in proximity - engages with pt for socialization. Per review of notes, pt's is nearing completion of [facility] application. Referrals have been made without definite offers (pending payor source) ED CM to follow.
[2022-12-06 19:45] VITALS: BP 110/70; PULSE 72; RESP 17; TEMP 36.8; O2SAT 100
[2022-12-06] MEDS: Atorvastatin Calcium 40 MG TABLET PO (19:48)
[2022-12-06] MEDS: Gabapentin 400 MG CAPSULE PO (19:48)
--- NOTE | 2022-12-06 20:00 | PC.NURSE ---
Assumed care at 1900. Discussed pt with [facility] Cotter, as well as ED provider, all in agreement to remove 1:1 sitter for pt, as he has been calm and cooperative for majority of the past 24 hours. At approx 1945 pt became weepy, tearful, stating I don't feel good without being able to localize pain or concerns. Pt stated he just wanted to sleep. Medicated pt per JUN. Telesitter still in place for pt safety. Repositioned for comfort. Pt now resting comfortably with no complaints at this time
--- NOTE | 2022-12-06 20:47 | MHC.CM.ED ---
Addendum entered by Brandy Osborn 12/06/22 21:19: Bitely text to Keena jones NP. She will evaluate patient in the morning regarding medication schedule and daytime sleepiness. Updated about pt behavior improvement and discontinuation of 1:1 sitter, with goal to remove camera with continued positive behaviors. Original Note: Pt , Adali called with concerns about patient being so sleepy and that patient has a sitter. Explained to that CM would review record and speak with primary RN and provide regarding medications and 1:1 sitter. Good effects noted from medication changes, with improved behaviors. Pt is sleepy. Will Bitely text Keena Jones NP regarding medication schedule. Discussed patient behaviors with primary RN. She is in agreement that patient does not require a 1:1 sitter; will speak with provider and D/C. No prn medications necessary for behaviors. Bed Alarm and camera remain. Will observe patient for behaviors with goal to remove camera and use bed alarm for safety. Staff able to visualize patient, as his bed is across from the nurses station. CM will follow for discharge planning.
[2022-12-07 06:00] VITALS: BP 112/70; PULSE 70; RESP 18; TEMP 36.8; O2SAT 100
[2022-12-07 07:36] VITALS: BP 135/69; PULSE 71; RESP 18; TEMP 35.9; O2SAT 96
[2022-12-07] MEDS: Sertraline HCL 50 MG TABLET PO (12:25)
[2022-12-07] MEDS: amLODIPine Besylate 10 MG TABLET PO (12:25)
[2022-12-07] MEDS: Finasteride 5 MG TABLET PO (12:25)
[2022-12-07] MEDS: Furosemide 40 MG TABLET PO (12:25)
[2022-12-07] MEDS: Apixaban 5 MG TABLET PO ×2 (12:25→21:03)
[2022-12-07] MEDS: allopurinoL 100 MG TABLET PO (12:26)
[2022-12-07] MEDS: Amiodarone HCL 200 MG TABLET PO (12:26)
[2022-12-07] MEDS: Folic Acid 1 MG TABLET PO (12:26)
[2022-12-07] MEDS: Omeprazole 20 MG CAPSULE.DR PO (12:26)
[2022-12-07] MEDS: QUEtiapine Fumarate 50 MG TABLET PO ×2 (12:26→21:03)
[2022-12-07] MEDS: Potassium Chloride ER 20 MEQ TAB.ER.PRT 40 MEQ PO ×2 (12:27→21:03)
[2022-12-07 12:59] VITALS: BP 105/48; PULSE 71; RESP 18; TEMP 37.4; O2SAT 100
--- NOTE | 2022-12-07 16:08 | MHC.CM.ED ---
CM called with updates. Left message.
[2022-12-07 16:27] VITALS: BP 119/59; PULSE 69; RESP 19; TEMP 36.3; O2SAT 100
[2022-12-07] MEDS: Atorvastatin Calcium 40 MG TABLET PO (21:03)
[2022-12-07] MEDS: Gabapentin 400 MG CAPSULE PO (21:03)
[2022-12-08 06:00] VITALS: BP 129/69; PULSE 73; RESP 20; TEMP 36.1; O2SAT 100
[2022-12-08 08:11] VITALS: BP 132/65; PULSE 70; RESP 18; TEMP 36.6; O2SAT 99
[2022-12-08] MEDS: Omeprazole 20 MG CAPSULE.DR PO (09:18)
[2022-12-08] MEDS: amLODIPine Besylate 10 MG TABLET PO (12:12)
[2022-12-08] MEDS: Finasteride 5 MG TABLET PO (12:12)
[2022-12-08] MEDS: allopurinoL 100 MG TABLET PO (12:12)
[2022-12-08] MEDS: Furosemide 40 MG TABLET PO (12:12)
[2022-12-08] MEDS: Sertraline HCL 50 MG TABLET PO (12:12)
[2022-12-08] MEDS: Potassium Chloride ER 20 MEQ TAB.ER.PRT 40 MEQ PO ×2 (12:12→20:06)
[2022-12-08] MEDS: Amiodarone HCL 200 MG TABLET PO (12:12)
[2022-12-08] MEDS: Apixaban 5 MG TABLET PO ×2 (12:12→20:06)
[2022-12-08] MEDS: Folic Acid 1 MG TABLET PO (12:13)
--- NOTE | 2022-12-08 12:52 | MHC.CM.ED ---
Pt continues holding in the ED pending LTC/locked unit placement: Barriers have been lack of facility availability, pt's need for 1:1 and camera for behavior intervention. Pt seen by vocational psychologist who made alterations to pt's medications to reduce daytime sleepiness. No change in alertness noted today: No offers for [place] [facility]. ED CM to follow.
[2022-12-08 14:00] VITALS: BP 117/50; PULSE 72; RESP 18; TEMP 36.9; O2SAT 100
[2022-12-08] MEDS: QUEtiapine Fumarate 50 MG TABLET PO ×2 (14:50→20:06)
--- NOTE | 2022-12-08 18:37 | PC.NURSE ---
Patient slept most of the day, unable to keep him awake for more that 10 to 15 minutes at the time. Requested to get out of bed to use a commode but was unable to do so and bedpan was used. Refused lunch, had about 25% of dinner. No behavioral issues, confused at times, talking in his sleep.
--- NOTE | 2022-12-08 19:43 | PC.NURSE ---
I assumed care of the pt at 1900. Pt resting in bed with his at the bedside at time of first interaction. Pt requested to use the commode, but was unable to have a bowel movement. Pt has a brief on at this time. A&O to self only. Pt's left [id number]. Pt has a camera in place for monitoring and bed alarm is on.
[2022-12-08] MEDS: Atorvastatin Calcium 40 MG TABLET PO (20:06)
[2022-12-08] MEDS: Gabapentin 400 MG CAPSULE PO (20:07)
[2022-12-08 20:33] VITALS: BP 119/65; PULSE 75; RESP 16; TEMP 36.7; O2SAT 96
[2022-12-09 06:00] VITALS: BP 133/71; PULSE 71; RESP 14; TEMP 35.9; O2SAT 100
[2022-12-09] MEDS: Potassium Chloride ER 20 MEQ TAB.ER.PRT 40 MEQ PO ×2 (11:55→20:17)
[2022-12-09] MEDS: Finasteride 5 MG TABLET PO (11:55)
[2022-12-09] MEDS: Furosemide 40 MG TABLET PO (11:56)
[2022-12-09] MEDS: Sertraline HCL 50 MG TABLET PO (11:56)
[2022-12-09] MEDS: Amiodarone HCL 200 MG TABLET PO (11:56)
[2022-12-09] MEDS: allopurinoL 100 MG TABLET PO (11:56)
[2022-12-09] MEDS: Apixaban 5 MG TABLET PO ×2 (11:56→20:17)
[2022-12-09] MEDS: amLODIPine Besylate 10 MG TABLET PO (11:56)
[2022-12-09] MEDS: Folic Acid 1 MG TABLET PO (11:56)
[2022-12-09 11:59] VITALS: BP 111/62
[2022-12-09] MEDS: metHOTREXate sodium 2.5 MG TABLET 20 MG PO (12:25)
[2022-12-09 14:00] VITALS: BP 115/59; PULSE 72; RESP 18; TEMP 36.1; O2SAT 97
--- NOTE | 2022-12-09 14:00 | MHC.CM.ED ---
Pt alert, conversant and engaging w/visitor (spouse) during early afternoon. States he slept well and feels fine Meds adjusted on 12/07 to promote circadian rhythm stability. Pt will need to be camera and sitter free in order to d/c Pt will need LTC in a locked facility - waiting for bed offer and payor at this time. ED CM to follow.
[2022-12-09] MEDS: QUEtiapine Fumarate 50 MG TABLET PO ×2 (14:12→20:17)
--- NOTE | 2022-12-09 18:27 | PC.NURSE ---
Patient awake most of the day, needed to keep the light on to make sure patient is aware it is day time. Very active, requiring frequent redirections but cooperative. Continues to be confused, trying to get out of bed on occasion.
[2022-12-09] MEDS: Atorvastatin Calcium 40 MG TABLET PO (20:17)
[2022-12-09] MEDS: Gabapentin 400 MG CAPSULE PO (20:17)
[2022-12-09 20:55] VITALS: BP 132/63; PULSE 77; RESP 17; TEMP 36.4; O2SAT 96
[2022-12-10 06:18] VITALS: BP 150/76; PULSE 69; RESP 16; TEMP 36.2; O2SAT 100
--- NOTE | 2022-12-10 11:08 | MHC.EDTECH ---
AM care done , bed change , Small BM , reposition .
[2022-12-10] MEDS: Amiodarone HCL 200 MG TABLET PO (11:11)
[2022-12-10] MEDS: allopurinoL 100 MG TABLET PO (11:11)
[2022-12-10] MEDS: Potassium Chloride ER 20 MEQ TAB.ER.PRT 40 MEQ PO ×2 (11:11→20:10)
[2022-12-10] MEDS: Folic Acid 1 MG TABLET PO (11:11)
[2022-12-10] MEDS: Sertraline HCL 50 MG TABLET PO (11:11)
[2022-12-10] MEDS: Omeprazole 20 MG CAPSULE.DR PO (11:11)
[2022-12-10] MEDS: amLODIPine Besylate 10 MG TABLET PO (11:11)
[2022-12-10] MEDS: Furosemide 40 MG TABLET PO (11:11)
[2022-12-10] MEDS: Apixaban 5 MG TABLET PO ×2 (11:12→20:11)
[2022-12-10] MEDS: Finasteride 5 MG TABLET PO (11:12)
[2022-12-10] MEDS: QUEtiapine Fumarate 25 MG TABLET PO (15:25)
[2022-12-10] MEDS: QUEtiapine Fumarate 50 MG TABLET PO (20:05)
[2022-12-10] MEDS: Gabapentin 400 MG CAPSULE PO (20:11)
[2022-12-10] MEDS: Atorvastatin Calcium 40 MG TABLET PO (20:12)
[2022-12-10] MEDS: LORazepam 1 MG TABLET 2 MG PO (21:44)
--- NOTE | 2022-12-11 03:30 | PC.NURSE ---
ASSUMED CARE OF PT AT 1900 AT WHICH TIME HE WAS VERY RESTLES AND CONFUSED AND ESCALATED TO AGITATION. PT RECEIVED ATIVAN 2 MG PO ORDERED BY MD. GOOD EFFECT NOTED AND PT IS NOW ASLEEP. HE HAD A MOD SOFT BROWN BM EARLY IN SHIFT AND SARA CARE GIVEN. VITAL SIGNS STABLE. TAKES MEDS WELL CRUSHED IN PUDDING.
[2022-12-11 06:45] VITALS: BP 113/56; PULSE 70; RESP 16; TEMP 36.4; O2SAT 100
--- NOTE | 2022-12-11 11:35 | PC.NURSE ---
Assumed care at 07:00. Patient difficult to assess. Short one word answers mostly yes/no/. Refused all medications by keeping his mouth shut despite attempts to educate and redirect, PA notified. patient with telesitter in place. Patient incontinent of B&B, full bed changed.
--- NOTE | 2022-12-11 13:51 | P.CNPS_ITS ---
History of Present Illness Date of Service: 12/11/2022 Chief Complaint: DEMENTIA WAS BEING AGGRESSIVE Reason for Consult: f/u Discussed with referring provider: Yes Sources of Information: patient interviewed, chart reviewed and crisis/core team assessment reviewed HPI Narrative: Interim Hx: Pt asleep when this clinical writer attempted to see him. Per nursing, pt was up most night. He received ativan 2mg at around 3am- pt continues to sleep through the day. Review of Systems Review of Systems Yes Unobtainable due to mental status PMFSH Medical History Atherosclerotic cardiovascular disease Dementia with behavioral disturbance Embolic stroke Erosive osteoarthritis Essential hypertension Gout History of cardioversion Obesity (BMI 30-39.9) JODI on CPAP Osteoarthritis PAF (paroxysmal atrial fibrillation) Prostate cancer Psoriatic arthritis Pure hypercholesterolemia Surgical History Hx of cardiac cath Hx of cholecystectomy Hx of colonoscopy Hx of eye surgery Stented coronary artery Family History: unable to collect history Social History: has been living with his until now. reported he worked at [employer]. Trauma History: unknown Diagnostics Vital Signs (24Hr): Vital Signs - 24 hr 12/11/22 06:45 Temperature 97.6 F Pulse Rate 70 Respiratory Rate 16 Blood Pressure 113/56 L Pulse Oximetry 100 Oxygen Delivery Method Room Air BMI result Body Mass Index 33.8 Labs 12/01/22 13:25 12/01/22 13:25 Imaging Radiology Impressions: ITS Impressions KUB X-Ray 11/24/22 00:49 IMPRESSION: Large colonic stool burden. Mental Status Exam Mental Status Exam Narrative: Pt asleep due to medication ativan 2mg at 3am. Medications Medications Current Medications Allopurinol (Allopurinol 100 Mg Tablet) 100 mg PO DAILY@1100 RAÚL Last Admin: 12/11/22 11:11 Dose: Not Given Amiodarone HCl (Amiodarone Hcl 200 Mg Tablet) 200 mg PO DAILY@1100 RAÚL Last Admin: 12/11/22 11:12 Dose: Not Given Amlodipine Besylate (Amlodipine Besylate 10 Mg Tablet) 10 mg PO DAILY@1100 RAÚL; Protocol Last Admin: 12/11/22 11:12 Dose: Not Given Apixaban (Apixaban 5 Mg Tablet) 5 mg PO BID@1100,2100 RAÚL Last Admin: 12/11/22 11:11 Dose: Not Given Atorvastatin Calcium (Atorvastatin Calcium 40 Mg Tablet) 40 mg PO BEDTIME [facility] Last Admin: 12/10/22 20:12 Dose: 40 mg Finasteride (Finasteride 5 Mg Tablet) 5 mg PO DAILY@1100 [facility] Last Admin: 12/11/22 11:12 Dose: Not Given Folic Acid (Folic Acid 1 Mg Tablet) 1 mg PO DAILY@1100 [facility] Last Admin: 12/11/22 11:12 Dose: Not Given Furosemide (Furosemide 40 Mg Tablet) 40 mg PO DAILY@1100 [facility]; Protocol Last Admin: 12/11/22 11:13 Dose: Not Given Gabapentin (Gabapentin 400 Mg Capsule) 400 mg PO BEDTIME [facility] Last Admin: 12/10/22 20:11 Dose: 400 mg Methotrexate (Methotrexate Sodium 2.5 Mg Tablet) 20 mg PO Kaplan@1100 [facility] Last Admin: 12/09/22 12:25 Dose: 20 mg Nitroglycerin (Nitroglycerin 0.4 Mg Tab.Subl) 0.4 mg SUBLINGUAL Q5M PRN PRN Reason: chest pain Nystatin (Nystatin Powder 15 Gm Bottle) 1 appl TOPICAL TID PRN; Protocol PRN Reason: Rash Nystatin/Triamcinolone Acetonide (Nystatin/Triamcinolone Oint 15 Gm Tube) 1 appl TOPICAL BID PRN; Protocol PRN Reason: Rash Omeprazole (Omeprazole 20 Mg Capsule.Dr) 20 mg PO DAILY@0900 [facility] Last Admin: 12/11/22 11:13 Dose: Not Given Potassium Chloride (Potassium Chloride Er 20 Meq Tab.Er.Prt) 40 meq PO B ID@1099,2099 [facility] Last Admin: 12/11/22 11:11 Dose: Not Given Quetiapine Fumarate (Quetiapine Fumarate 25 Mg Tablet) 25 mg PO DAILY@1400 [facility] Last Admin: 12/10/22 15:25 Dose: 25 mg Quetiapine Fumarate (Quetiapine Fumarate 50 Mg Tablet) 50 mg PO BEDTIME [facility] Last Admin: 12/10/22 20:05 Dose: 50 mg Sertraline HCl (Sertraline Hcl 50 Mg Tablet) 50 mg PO DAILY@1100 [facility] Last Admin: 12/11/22 11:13 Dose: Not Given Allergies Allergies Allergy/AdvReac Type Severity Reaction Status Date / Time penicillin V Allergy Intermediate hives Verified 11/23/22 22:39 Assessment & Plan Assessment & Plan (1) Major neurocognitive disorder due to multiple etiologies, with psychotic disturbance: Status: Acute Code(s): F02.82 - Dementia in other diseases classified elsewhere, unspecified severity, with psychotic disturbance Plan 1.Continue to monitor over sedation during the day. He has been up most of the nights, will try to reverse cycle. 2. Monitor EKG, Qtc adjusted considering he has RBBB, Maintain K>4, Mg>2mg. 3. Noted Neutropenia and chronic Leukopenia. 4. No change in medication at this time 5. Awaiting placement. 12/11 pt somnolent during the day as he received ativan 2mg due to being up most n ight. I would recommend lower dose of ativan to avoid oversedation. seroquel was decreased from 50mg po BID, to 25mg po at 1300 and 50mg po qhs. Total time managing care of this patient today ____ minutes.
[2022-12-11 14:11] VITALS: BP 136/59; PULSE 76; RESP 16; TEMP 36.4; O2SAT 98
[2022-12-11] MEDS: QUEtiapine Fumarate 25 MG TABLET PO (14:32)
--- NOTE | 2022-12-11 14:44 | MHC.CM.ED ---
Patient remains in ER overflow. Received telephone call from patient's , Adali. Adali is requesting an update on patient's status. T/W explained CM will need a copy of patient's [employer] application and accompanying financial documents before facility will accept patient. Adali reached out to Renea at [facility]. Received telephone call from Renea that Adali will have to privately pay for 1-2 months. T/W verified this to be understood but facilities still want proof of MH pooja. Renea will send T/W a copy of application. Continue to monitor for d/c needs.
--- NOTE | 2022-12-11 18:18 | MHC.EDTECH ---
Assist patient onto supine position in bed.
[2022-12-11] MEDS: QUEtiapine Fumarate 50 MG TABLET PO (20:16)
[2022-12-11] MEDS: Gabapentin 400 MG CAPSULE PO (20:16)
[2022-12-11] MEDS: Apixaban 5 MG TABLET PO (20:17)
[2022-12-11] MEDS: Atorvastatin Calcium 40 MG TABLET PO (20:17)
[2022-12-11 22:00] VITALS: BP 132/65; PULSE 77; RESP 16; TEMP 36.6; O2SAT 98
--- NOTE | 2022-12-11 23:30 | PC.NURSE ---
Approximately at 21:40 patient started reporting mild abdominal discomfort and states needing to have a bowel movement. Patient placed on bedpan twice with no bowel movement. Patient is not answering numeric pain scale question. Abdominal when auscultated is normoactive in all four quadrants. MD notifed and no further orders placed.
[2022-12-12 06:00] VITALS: BP 130/71; PULSE 79; RESP 20; TEMP 36; O2SAT 100
[2022-12-12 08:56] VITALS: BP 136/69; RESP 18; TEMP 35.8; O2SAT 100
[2022-12-12] MEDS: Omeprazole 20 MG CAPSULE.DR PO (09:01)
--- NOTE | 2022-12-12 09:11 | MHC.CM.ED ---
Addendum entered by Corinne Hendrix 12/12/22 13:48: Copy of [employer] application obtained from [facility]. Referral resent to all facilities within 50 miles. [facility] no longer has a bed available. [facility] still reviewing. Original Note: Patient remains in ER overflow. Received telephone call from patient's , Adali. Adali stated she received a telephone call from [facility] stating they don't have patient's name. T/W explained referrals are dealt with by the building laision and the building does not always have the most up date info. Adali requested T/W call [facility]. T/W explained an updated referral would be sent. Copy of [employer] application has not been received by Renea at [facility]. Renea contacted again about [employer]. Continue to monitor for d/c needs.
--- NOTE | 2022-12-12 09:15 | PC.NURSE ---
A & O x1, self. Respirations even and unlabored. No SOB noted. Skin tear L elbow w/ large band-aid applied, blood drainage. A small skin tear to L knee, no drainage noted. L knee yellow bruising. Small dime sized R knee abrasion w/ healing scab. No edema noted. Appears restless. Bed alarm on. Reported BEARD very bad , observed to be holding head. Able to make needs known.
[2022-12-12 10:16] VITALS: BP 152/72; PULSE 86
[2022-12-12] MEDS: Furosemide 40 MG TABLET PO (10:17)
[2022-12-12] MEDS: Apixaban 5 MG TABLET PO ×2 (10:18→20:19)
[2022-12-12] MEDS: Potassium Chloride ER 20 MEQ TAB.ER.PRT 40 MEQ PO ×2 (10:18→20:18)
[2022-12-12] MEDS: Amiodarone HCL 200 MG TABLET PO (10:18)
[2022-12-12] MEDS: amLODIPine Besylate 10 MG TABLET PO (10:18)
[2022-12-12] MEDS: Folic Acid 1 MG TABLET PO (10:19)
[2022-12-12] MEDS: allopurinoL 100 MG TABLET PO (10:19)
[2022-12-12] MEDS: Butalb/Acetamin/Caff 50/325/40 TABLET 1 TAB PO (10:19)
[2022-12-12] MEDS: Sertraline HCL 50 MG TABLET PO (10:19)
[2022-12-12] MEDS: Finasteride 5 MG TABLET PO (10:20)
[2022-12-12] MEDS: OLANZapine 5 MG TABLET PO (11:09)
--- NOTE | 2022-12-12 11:14 | PC.NURSE ---
Pt increasingly agitated and restless. MLP aware. Zyprexa 5mg ordered and given.
--- NOTE | 2022-12-12 11:49 | PC.NURSE ---
Pt incontinent of xtra large amount of urine. Pt noted to have bilateral reddened irritated area of groin, nystatin powder to be applied. Complete bed linens changed.
[2022-12-12] MEDS: polyethylene glycoL 3350 17 GM POWD.PACK PO (12:54)
[2022-12-12] MEDS: QUEtiapine Fumarate 25 MG TABLET PO (12:54)
--- NOTE | 2022-12-12 13:01 | PC.NURSE ---
Pt given PRN miralax d/t no BM in unknown amount of days.
[2022-12-12] MEDS: Nystatin Powder 15 GM BOTTLE 1 APPL TOPICAL (14:20)
[2022-12-12 14:28] VITALS: BP 123/70; PULSE 78; RESP 16; TEMP 36.3; O2SAT 100
--- NOTE | 2022-12-12 16:08 | MHC.EDTECH ---
Feed patient 4.5oz applesauce.
--- NOTE | 2022-12-12 17:00 | PC.NURSE ---
Ate 75% of dinner. Drank 480cc of fluids consumed.
--- NOTE | 2022-12-12 17:06 | MHC.EDTECH ---
Feed patient dinner.
--- NOTE | 2022-12-12 18:36 | PC.NURSE ---
pt incontinent of urine and very small amount of stool. Pt cleaned up. repositioned. at bedside for few minutes.
[2022-12-12] MEDS: Gabapentin 400 MG CAPSULE PO (20:18)
[2022-12-12] MEDS: Atorvastatin Calcium 40 MG TABLET PO (20:18)
[2022-12-12] MEDS: QUEtiapine Fumarate 50 MG TABLET PO (20:19)
[2022-12-12 21:15] VITALS: BP 128/59; PULSE 75; RESP 16; TEMP 36.7; O2SAT 96
[2022-12-13 06:42] VITALS: BP 142/67; PULSE 69; RESP 16; TEMP 36.1; O2SAT 97
[2022-12-13] MEDS: Apixaban 5 MG TABLET PO ×2 (10:54→21:52)
[2022-12-13] MEDS: Omeprazole 20 MG CAPSULE.DR PO (11:00)
[2022-12-13] MEDS: Sertraline HCL 50 MG TABLET PO (11:01)
[2022-12-13] MEDS: amLODIPine Besylate 10 MG TABLET PO (11:01)
[2022-12-13] MEDS: Furosemide 40 MG TABLET PO (11:01)
[2022-12-13] MEDS: allopurinoL 100 MG TABLET PO (11:02)
[2022-12-13] MEDS: Potassium Chloride ER 20 MEQ TAB.ER.PRT 40 MEQ PO (11:02)
[2022-12-13] MEDS: Folic Acid 1 MG TABLET PO (11:02)
[2022-12-13] MEDS: Amiodarone HCL 200 MG TABLET PO (11:02)
--- NOTE | 2022-12-13 11:27 | PC.NURSE ---
Changed and repositioned incontinent of urine and stool
--- NOTE | 2022-12-13 11:49 | MHC.CM.ED ---
Addendum entered by Corinne Hendrix 12/13/22 12:43: Received telephone call from patient's son. Just wanted to verify plan is to d/c patient to [facility]. Aware patient will leave ER tomorrow 12/14 at 10am. Also aware his mother will need to be at the facility tomorrow to sign consent paperwork. Facility is aware Adali will not be there until after 2pm. Addendum entered by Corinne Hendrix 12/13/22 12:07: Per Zahida at [facility], [place] [facility] [place] at 10am. Winston ZARATE booked. [facility] with chart. Patient, Adali, Donya PLASENCIA and Mary ARELLANO aware. Original Note: Patient remains in ER overflow. At this time, [facility] is the only facility that is able to offer a bed at this time. [facility] not have a [facility] bed available. Adali made aware and is going to accept the bed. Adali can be at [facility] tomorrow after 2pm to sign the necessary paperwork. [facility] made aware. Waiting to hear what time patient can transfer to facility. Continue to monitor for d/c needs.
--- NOTE | 2022-12-13 12:06 | HE.PHANOTE ---
RE: crushable medication in overflow Filed an incident report when it was reported that pt had been receiving cytotoxic meds (finasteride and methotrexate) crushed along with potassium er. Reported to covering provider Mary Neumann.
[2022-12-13] MEDS: QUEtiapine Fumarate 25 MG TABLET PO (13:26)
[2022-12-13 16:00] VITALS: BP 115/77; PULSE 63; RESP 16; TEMP 36.7; O2SAT 97
[2022-12-13 17:05] LABS: COVID-19 Test Negative (Negative); IDNOW Serial# BCCEAD1C
--- NOTE | 2022-12-13 18:29 | MHC.EDTECH ---
PATIENT WAS FED ATE 20 % OF MEAL ,DRANK SIPS OF FLUIDS ,PT DRY AND REPOSITION IN BED .
--- NOTE | 2022-12-13 18:39 | PC.NURSE ---
pt tolerating small amounts of po, has been changed and repositioned several times through out shift.
[2022-12-13 20:01] VITALS: BP 146/76; PULSE 62; RESP 20; TEMP 36.6; O2SAT 100
[2022-12-13] MEDS: Atorvastatin Calcium 40 MG TABLET PO (21:52)
[2022-12-13] MEDS: QUEtiapine Fumarate 50 MG TABLET PO (21:52)
[2022-12-13] MEDS: Gabapentin 400 MG CAPSULE PO (21:52)
[2022-12-14] MEDS: Potassium Chloride ER 20 MEQ TAB.ER.PRT 40 MEQ PO (00:38)
[2022-12-14] MEDS: LORazepam 1 MG TABLET PO (00:38)
--- NOTE | 2022-12-14 06:01 | PC.NURSE ---
This RN assumed care at 1900. Patient self-dialoguing, labile mood at times. Patient was incontinent multiple times, was changed appropriately when needed. Patient medication compliant and was safe on checks. RN gave report to Esperanza PLASENCIA at 0000.
[2022-12-14 06:51] VITALS: BP 115/50; PULSE 78; RESP 19; TEMP 36.4
--- NOTE | 2022-12-14 07:13 | PC.NURSE ---
Assumed care 00:00 12/14. Pt continues in ED overflow, pending placement to LTC/locked facility per chart review. Pt A&Ox1 to self only. Agitated/restless on assuming care. Dr. Connolly notified, given 1x ativan po in pudding, tolerated. +effect. Pt since resting/sleeping in bed, breathing even and unlabored without distress. Pt incontinent of large brown bmx2, incontinence care provided. Bed alarm on and camera in place for safety. Handoff report given 06:45.
--- NOTE | 2022-12-14 10:28 | MHC.CM.ED ---
Addendum entered by Corinne Hendrix 12/14/22 10:28: Rachel PLASENCIA asked to call RN to RN to [phone] and ask for Main [address]. Original Note: Patient will d/c to [facility] today via BLS at 10am. Patient, Adali, son, Rachel RN and Ashley ARELLANO aware.
== END 2022-12-14 10:30 ==
PROVIDERS: Physician Assistant; Social Worker; Emergency Provider Internal Medicine
DX: F03.918 Unspecified dementia, unspecified severity, with other behavioral disturbance (principal); F91.8 Other conduct disorders; I45.10 Unspecified right bundle-branch block; K56.41 Fecal impaction; Z20.822 Contact with and (suspected) exposure to COVID-19; I10 Essential (primary) hypertension; I48.0 Paroxysmal atrial fibrillation; E78.00 Pure hypercholesterolemia, unspecified; M15.4 Erosive (osteo)arthritis; E66.9 Obesity, unspecified; Z68.33 Body mass index [BMI] 33.0-33.9, adult; G47.33 Obstructive sleep apnea (adult) (pediatric); Z99.89 Dependence on other enabling machines and devices; Z85.46 Personal history of malignant neoplasm of prostate; Z86.73 Personal history of transient ischemic attack (TIA), and cerebral infarction without residual deficits; Z79.01 Long term (current) use of anticoagulants; Z79.899 Other long term (current) drug therapy
CPT/HCPCS: 36415; 51701; 74018; 80048; 80053; 80076; 81001; 82607; 82746; 83735; 84443; 85025; 87635; 93005; 99285

== ENCOUNTER → 2022-11-23 22:47 | Outpatient (BNV) | payer MEDICARE, SELFPAY | PROVIDERS: Emergency Provider Internal Medicine; Visit Provider Psychiatry & Neurology Psychiatry | DX: F03.918 Unspecified dementia, unspecified severity, with other behavioral disturbance (principal) | CPT/HCPCS: 99232; 99282; 99283 ==